=== PATIENT | female | born 1975 | race Caucasian/White ===

== ENCOUNTER 2023-10-04 13:56 | Outpatient (AMB) | payer OTHER, SELFPAY ==
--- NOTE | 2023-10-04 14:01 | A.OFFPC_ITS ---
Vital Signs 10/04/23 14:10 Height 5 ft 5 in Weight 197 lb 8 oz BMI 32.9 BP 136/76 Blood Pressure Location Lt brachial Respiration 14 Pulse 88 Pulse Source Pulse Oximeter Temp 98 F Temp Source Oral Pulse Oximetry (%) 95 Oxygen Delivery Method Room Air Intake Visit Reasons: Est care Intake Note: New patient visit School Occupational Therapist Required: No Allergies No Known Allergies Allergy (Verified 10/04/23 14:02) Medication List - Last Reconciled 10/04/23 by Jillian Rosales PA-C hydrochlorothiazide 25 mg PO DAILY Tobacco use date assessed: 10/04/23 Dental Screening Dental Screen Date: 10/04/23 Did you have a dental visit in the last 12 months?: Yes Did you have a dental problem in the last 6 months where you did not have access to dental care?: No Was dental information given to patient?: Patient has dentist HPI Est care HPI Details Patient is a 47-year-old female with a significant past medical history of breast cancer, melanoma, multinodular goiter, insomnia seasonal allergies, and hypertension presenting today for a follow up. She was last seen by myself at [facility] on 08/22/2023. Psych: Trazodone has been helpful for the insomnia prn. has not been taking this regularly. Endo: FNA benign on 07/21/23. We will need repeat ultrasound in 1 year. This was already ordered and scheduled at [facility]. - she was noted to have abnormal cervica l lymphadenopathy and due to have this ultrasound repeated next month. has to call to book. Derm: She maintains close follow up with Dr. Ybarra at [facility]. CV: Blood pressure today in the office is 136/76. She is compliant with hydrochlorothiazide 25 mg. Colonoscopy: At our last visit she was referred again for a colonoscopy. She has been referred multiple times. She states that she never heard the last time and would like to be referred to [facility]. Pap: 03/2023- utd Mammo: 05/25/23, [facility] Medical History (Updated 10/04/23 @ 14:49 by Jillian Rosales PA-C) Obesity, Class I, BMI 30-34.9 Multinodular goiter Hyperthyroidism HTN (hypertension) Melanoma Fatigue Breast cancer, right Family History (Updated 10/04/23 @ 14:09 by Marie Harrison CMA) Other FH: mental illness Substance use Social History (Updated 10/04/23 @ 14:08 by Marie Harrison CMA) Housing: House Patient Tobacco Use Status: Former Tobacco user Years Smoked: 10 e-Cigarette/Vaping Use: Never Used Second Hand Smoke Exposure: No Use of substances other than those prescribed or required for medical reasons: No service: No Current occupational status: employed 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 1. Little interest or pleasure in doing things: not at all 2. Feeling down, depressed, or hopeless: not at all 3. Trouble falling or staying asleep, or sleeping too much: not at all 4. Feeling tired or having little energy: several days 5. Poor appetite or overeating: several days 6. Feeling bad about yourself - or that you are a failure or have let yourself or your family down: not at all 7. Trouble concentrating on things, such as reading the newspaper or watching television: not at all 8. Moving or speaking so slowly that other people could have noticed. Or the opposite - being so fidgety or restless that you have been moving around a lot more than usual: not at all 9. Thoughts that you would be better off or of hurting yourself in some way: not at all Total score: 2 Depression Screening Interpretation: Negative Depression Screening Done: Yes 93684 - PHQ-9 Billing: Yes Source: Developed by Drs. Tom Busby, Ekaterina Angel, Eugene Fang and colleagues, with an educational greg from [employer]. AUDIT C Alcohol Use Questionnaire (AUDIT-C) 1. How often do you have a drink containing alcohol?: Monthly or less 2. How many drinks containing alcohol do you have on a typical day when you are drinking?: 1 or 2 3. How often do you have six or more drinks on one occasion?: Never Total Score: 1 ARTIE-7 AMB Questionnaire ARTIE-7 Feeling nervous, anxious, or on edge: 0 = Not at all Not being able to stop or control worryin = Not at all Worrying too much about different things: 0 = Not at all Trouble relaxin = Not at all Being so restless that it is hard to sit still: 0 = Not at all Becoming easily annoyed or irritable: 0 = Not at all Feeling afraid as if something awful might happen: 0 = Not at all Total ARTIE-7 score (0-4 normal; 5-9 mild; 10-14 moderate; 15-21 severe): 0 Source: Developed by Drs. Tom Busby, Ekaterina Angel, Eugene Fang and colleagues, with an educational greg from [employer]. ARTIE-7 Assessment Billing ARTIE-7 Assessment Tool: ARTIE-7 Assessment 68318 Physical exam (Primary Care) Vital Signs: Last Vital Signs Temp 98 F 10/04/23 14:10 Pulse 88 10/04/23 14:10 Resp 14 10/04/23 14:10 BP 136/76 10/04/23 14:10 Pulse Ox 95 10/04/23 14:10 Oxygen Delivery Method Room Air 10/04/23 14:10 BMI result Body Mass Index 32.9 Tobacco/Smoking Status: Tobacco use Status Tobacco use date assessed 10/04/23 10/04/23 14:16 Patient Tobacco Use Status Former Tobacco user 10/04/23 14:16 e-Cigarette/Vaping Use Never Used 10/04/23 14:16 Depression Screening Interpretation: Negative Const Orientation/consciousness: patient oriented x3 HENMT Ears: hearing grossly normal bilaterally Neck Thyroid: Thyroid normal Lymphatic: no lymphadenopathy noted Resp Auscultation: clear to auscultation bilaterally Cardio Rate: regular rate Rhythm: regular rhythm Heart sounds: S1 normal heart sound present and S2 normal heart sound present GI Inspection: Yes normal to inspection Palpation (GI): Soft to palpation and Other GI palpation findings present (nontender, no cva tenderness) Auscultation: normoactive bowel sounds Rectal Exam - Female: deferred Skin General skin exam: no rashes or lesions noted Neuro General: patient oriented x3, gait normal and no focal motor deficits Assessment and Plan Assessment & Plan (1) HTN (hypertension): Code(s): I10 - Essential (primary) hypertension Qualifiers: Hypertension type: primary hypertension Qualified Code(s): I10 - Essential (primary) hypertension Plan: We will refill medications today. (2) Hyperthyroidism: Code(s): E05.90 - Thyrotoxicosis, unspecified without thyrotoxic crisis or storm Plan: Following with endocrinology and has labs ordered and repeat thyroid ultrasound ordered. (3) Multinodular goiter: Code(s): E04.2 - Nontoxic multinodular goiter Plan: See above. Plan Referral for colonoscopy. Routine labs ordered. Follow up in 6 months for CPE or sooner if needed. Patient understands and agrees with the plan. Orders: Orders Comprehensive [place]. Panel Fast Today E04.2 - Nontoxic multinodular goiter, E05.90 - Thyrotoxicosis, unspecified without thyrotoxic crisis or storm, I10 - Essential (primary) hypertension Lipid Panel Today E04.2 - Nontoxic multinodular goiter, E05.90 - Thyrotoxicosis, unspecified without thyrotoxic crisis or storm, I10 - Essential (primary) hypertension TSH reflex Free T4 Today E04.2 - Nontoxic multinodular goiter, E05.90 - Thyrotoxicosis, unspecified without thyrotoxic crisis or storm, I10 - Essential (primary) hypertension Complete Blood Count Auto Diff Today E04.2 - Nontoxic multinodular goiter, E05.90 - Thyrotoxicosis, unspecified without thyrotoxic crisis or storm, I10 - Essential (primary) hypertension Referrals Gastroenterology Referral Z12.11 - Encounter for screening for malignant neoplasm of colon Medications: New hydrochlorothiazide 25 mg PO DAILY 90 tabs 3RF Coding Level of Care Code Est Pt Level 4 (34449) Complex EM visit Add On G2211 Diagnoses Primary hypertension I10 Hypertension type: primary hypertension Hyperthyroidism E05.90 Multinodular goiter E04.2 Additional Codes ARTIE-7 Assessment Billing - ARTIE-7 Assessment Tool: ARTIE-7 Assessment 72234 ([id number])
[2023-10-04 14:10] VITALS: BP 136/76; PULSE 88; RESP 14; TEMP 36.6; O2SAT 95; BMI 32.9
== END 2023-10-04 15:01 | disposition home or self-care (01) ==
PROVIDERS: PCP Physician Assistant; Visit Provider Physician Assistant
DX: I10 Essential (primary) hypertension (principal); E05.90 Thyrotoxicosis, unspecified without thyrotoxic crisis or storm; E04.2 Nontoxic multinodular goiter
CPT/HCPCS: 99214; G2211

== ENCOUNTER 2024-03-26 14:35 | Outpatient (REF) | payer OTHER, SELFPAY ==
[2024-03-26 17:44] LABS: MANUAL DIFF FLAG NO
[2024-03-26 18:02] LABS: Basophils Absolute Auto 0.1 X10*3/uL (0.0-0.2); Basophils Percent Auto 0.5 % (0-2); Eosinophils Absolute Auto 0.4 X10*3/uL (0.0-0.4); Eosinophils Percent Auto 3.9 % (0-4); Hematocrit 42.1 % (37.0-47.0); Hemoglobin 14.5 g/dl (12.0-16.0); Imm Gran Abs Auto 0.06 X10*3/uL (0.00-0.03); Imm Gran Pct Auto 0.6 % (0.0-0.4); Lymphocytes Percent Auto 19.4 % (20-40); Mean Corpuscular HGB Conc 34.4 g/dl (31.0-35.0); Mean Corpuscular Hemoglobin 28.7 pg (27.0-33.0); Mean Corpuscular Volume 83.4 fL (80.0-98.0); Mean Platelet Volume 9.7 fL (9.4-12.3); Monocytes Absolute Auto 0.6 X10*3/uL (0.1-1.2); Monocytes Percent Auto 6.1 % (2-11); Neutrophils Percent Auto 69.5 % (45-73); Platelet Count 315 X10*3/uL (160-400); Red Blood Count 5.05 X10*6/uL (4.20-5.50); White Blood Count 10.1 X10*3/uL (4.8-10.8)
[2024-03-26 18:15] LABS: Alanine Aminotransferase 27 U/L (0-31); Albumin Level 4.6 g/dL (3.5-5.0); Alkaline Phosphatase 112 U/L (39-117); Anion Gap 15 (12-20); Aspartate Amino Transferase 27 U/L (5-31); Bilirubin Total 0.3 mg/dL (0.0-1.0); Blood Urea Nitrogen 11 mg/dL (9-16); Calcium 10.3 mg/dL (8.4-10.2); Carbon Dioxide 30 mmol/L (22-29); Chloride 100 mmol/L (96-108); Cholesterol 246 mg/dL (<200); Estimated Glomerular Filt Rate > 60; Glucose Fasting 106 mg/dL (60-99); HDL Cholesterol 50 mg/dL (>40); LDL Cholesterol Calculated 144 mg/dL (<100); Sodium 142 mmol/L (135-145); Total Protein 7.8 g/dL (6.5-8.0); Triglycerides 260 mg/dL (<150)
[2024-03-26 18:34] LABS: TSH reflex Free T4 0.54 uIU/mL (0.32-4.0)
== END 2024-03-26 14:36 | disposition home or self-care (01) ==
LOC: HO.WFDLDS 14:35
PROVIDERS: Visit Provider Physician Assistant
DX: E05.90 Thyrotoxicosis, unspecified without thyrotoxic crisis or storm (principal); I10 Essential (primary) hypertension; E04.2 Nontoxic multinodular goiter
CPT/HCPCS: 36415; 80053; 80061; 84443; 85025

== ENCOUNTER 2024-04-08 07:58 | Outpatient (AMB) | payer OTHER, SELFPAY ==
--- NOTE | 2024-04-08 07:59 | A.OFFPC_ITS ---
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- hydrochlorothiazide 25 mg PO DAILY Tobacco use date assessed: 04/08/24 Dental Screening Dental Screen Date: 04/08/24 Did you have a dental visit in the last 12 months?: Yes Did you have a dental problem in the last 6 months where you did not have access to dental care?: No Was dental information given to patient?: Patient has dentist HPI HPI Comments History of Present Illness Details 48-year-old female with breast cancer R, melanoma, multinodular goiter, insomnia, seasonal allergies, hypertension, obesity, mild intermittent asthma, prediabetes Health Maintenance Pap: 03/2023- utd Mammo: 05/25/23, utd Colon referred 05/14/2024 Tdap UTD in the last 10 years Flu declined Specialists Endo 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 Labs from PCP reviewed w/ her today. She is taking Ca+D supplement as advised by her team who managed her Breast CA. Taking HCTZ as directed, did not make any dietary changes in related to eating K+ rich foods Labs do show hyperlipidemia. She reports that she was nonfasting during the labs sample. We will repeat the lipid profile today as she was fasting just to evaluate the triglycerides. A1c today 5.7% R breast ca - s/p lumpectomy, 05/2024 will be 5 years in remission Melanoma s/p excision in remission, monitored by Derm Optho - has never had an eye exam, no issues. Sleep - chronic insomnia. Was RXd trazodone but did not take does not like meds. Having hot flashes. Does not want any medications. Will suffer with this until ready. Does use marijuana with + effect. History of mild intermittent asthma seems to flare seasonally. Does not have an inhaler at this time and does not feel like she needs 1. Active with time recorder for allergy shots. Plan Prediabetes education provided. Advised to exercise for 30 minutes 5 days a week. Makes small achievable lifestyle and dietary modifications. Repeat labs show normalization of her potassium as well as her calcium. Improved lipid profile as well on a fasting state. Okay to continue hydrochlorothiazide at this time. . Continue care with care team We will need repeat labs before next office visit which will be in 6 months with her primary care provider RUN: 04/08/24 150 5 PAGE 1 [facility] [address] [place] [address] Phon e: [phone] Bead Stringer cheryl: Yuval Staley M.D. Specimen Inqu iry Name: Jose Guadalupe Thomas Age/Sex: 48 /F : Acct#: [id number] Unit#: [id number] Atten d Dr: Clint Pike Re04/08/24 Status: REG REF Location: [facility] Disch: SPEC : [id number] ARIC: -50 ST ATUS: COMP REQ : [id number] RECD: -[address] [facility] [address]: Jillian saenz COMP: 1 06/08/23-1244 ENTER ED: 04/08/24-[address] [facility] [address]: Karissa PikePHUA ORDE RED: BMP, Lipid P kobi Test Result Flag Refere nce Sodium 142 135-145 mmol/L Potassiu m 3.3 3.3-5.1 mmol/L C L 10 4 96-108 mmol /L CO2 28 22-29 mmol/L Gap 13 12-20 BUN 13 9-16 mg/dL Creat 0.74 0.5-1.4 mg/dL EGFR > 60 NOTE: For -Bahraini individu als, multiply the result by 1.210. Chronic Kidney Disease: E stimated GFR < 60 mL/min/1.73m2 Severe Kidney D isease: Estimated GFR < 15 mL/min/1 .73m2 Glucose, R andom 89 60 -115 mg/dL CA 9.9 8.4-10.2 mg/dL Triglyceride 179 H <150 mg/ dL Desira ble Triglyceride: less than 15 0 mg/dL Bor derline High Trigl yceride 150-199 m g/dL High T riglyceride: 200-499 mg/d L Very High Triglyceride: greater than or equal to 5OO mg/ dL Cholesterol 189 <200 mg/dL Clement irable Cholesterol : less than 200 mg/dL Borderline High Ch olesterol: 200-23 9 mg/dL Hig h Cholesterol: greater t segura 239 mg/dL LD L Calculated 111 H <100 mg/dL Desirable LDL: less than 100 mg/dL Near Optimal/Above Opt imal LDL: 110-129 mg/dL Bord silas High LDL: 130-159 mg/dL High LDL: 160-189 mg/dL Very High LDL: greater than or equal to 190 mg/dL HD L 43 >40 mg/dL Desirable HDL: greater than 40 mg/dL Note: This HDL assay ma y give artificiall y low results in patien ts with liver dise ase. END OF REPORT * * RUN: 09/26 9193 PAGE 1 [facility] [address] [address] Phone: [facility] Director: Anastasiia Staley M.D. Speci men Inquiry Name: Bhargavi Thomas Age/Sex: 48/ F : Acct#: [id number] Unit#: [id number] Attend Dr: Gabriele Pike [facility] Re04/08/24 Status: REG REF Location: [facility] Disch: SPEC : [id number] ARIC : 04/08/24 STATUS: COMP REQ : [id number] RECD : 04/08/24-[address]: Jillian MARRERO P: 04/08/24-1244 E NTERED: 04/08/24- [address]: Gabriele Pike DRAW FRAME OPERATOR-BC ORDERED: BMP, Lip id Panel Test Result Fla g Reference S odium 14 2 135-145 mmo l/L Potassium 3.3 3.3- 5.1 mmol/L CL 104 96-108 mmol/L CO2 28 22-29 mmo l/L Gap 13 12-2 0 BUN 13 9-16 mg/dL Cr eat 0.7 4 0.5-1.4 mg/d L EGFR > 60 NOTE : For -Michelle rican individuals, multiply the resu lt b y 1.210. Chronic Kidn ey Disease: Estim ated GFR < 60 mL/m in/1.73m2 S evere Kidney Disea se: Estimated GFR < 15 mL/min/1.73m 2 Glucose, Rando m 89 60-115 mg/dL CA 9.9 8 .4-10.2 mg/dL Tr iglyceride 179 H <150 mg/dL Desirable Triglyceride: less than 150 mg /dL Borderl ine High Triglycer kt 150-199 mg/dL High Trigl yceride: 200-499 mg/dL Very High Tri glyceride: g reater than or equ al to 5OO mg/dL Cholesterol 189 <200 mg/d L Desirab le Cholesterol: less than 200 mg/dL Bord silas High Choles terol: 200-239 mg /dL High Ch olesterol: greater than 239 mg/dL LDL Ca lculated 111 H <100 mg/dL Desirable LDL: less than 100 mg/ dL Near Opt imal/Above Optimal LDL: 110-129 mg/ dL Borderli ne High LDL: 130-159 mg/ dL High LDL : 160-189 mg/ dL Very Hig h LDL: greater natali n or equal to 190 mg/dL HDL 43 >40 mg/dL Desirable HDL: greater than 40 mg/dL Note: Thi s HDL assay may gi ve artificially low res ults in patients w ith liver disease. END OF REPORT [facility] Medical History (Updated 04/08/24 @ 08:37 by Karissa Pike, [facility]) Obesity, Class I, BMI 30-34.9 Multinodular goiter Hyperthyroidism HTN (hypertension) Melanoma Fatigue Breast cancer, right Family History (Updated 10/04/23 @ 14:09 by Marie Harrison CMA) Other FH: mental illness Substance use Social History (Updated 10/04/23 @ 14:08 by Marie Harrison CMA) Housing: House Patient Tobacco Use Status: Former Tobacco user Years Smoked: 10 e-Cigarette/Vaping Use: Never Used Second Hand Smoke Exposure: No service: No Current occupational status: employed 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 1. Little interest or pleasure in doing things: not at all 2. Feeling down, depressed, or hopeless: not at all 3. Trouble falling or staying asleep, or sleeping too much: not at all 4. Feeling tired or having little energy: not at all 5. Poor appetite or overeating: not at all 6. Feeling bad about yourself - or that you are a failure or have let yourself or your family down: not at all 7. Trouble concentrating on things, such as reading the newspaper or watching television: not at all 8. Moving or speaking so slowly that other people could have noticed. Or the opposite - being so fidgety or restless that you have been moving around a lot more than usual: not at all 9. Thoughts that you would be better off or of hurting yourself in some way: not at all Total score: 0 Depression Screening Interpretation: Negative Depression Screening Done: Yes 55410 - PHQ-9 Billing: Yes Source: Developed by Drs. Tom Busby, Ekaterina Angel, Eugene Fang and colleagues, with an educational greg from [employer]. Thrive Questionnaire Date Thrive assessed: 04/08/24 I am a: Patient What is your living situation today?: I have a steady place to live Within the past 12 months, did the food you bought not last and you didn't have the money to get more?: Never true Within the past 12 months, did you worry whether your food would run out before you got money to buy more?: Never true Do you have trouble paying for medicines?: No Do you have trouble getting transportation to medical appointments?: No Do you have trouble paying your heating and electricity bill?: No Do you have trouble taking care of your child, family member or friend?: No Do you have trouble with day-to-day activities such as bathing, preparing meals, shopping, managing finances, etc.?: No Are you currently unemployed and looking for a job?: No Are you interested in more education?: No Please select the resources that you would like help with: None Currently or been in a relationship where the following occur: No concerns reported THRIVE Score: 0 AUDIT C Alcohol Use Questionnaire (AUDIT-C) 1. How often do you have a drink containing alcohol?: Never 3. How often do you have six or more drinks on one occasion?: Never Total Score: 0 Score Reviewed/Action Taken: Yes ARTIE-7 AMB Questionnaire ARTIE-7 Date ARTIE - 7 assessed: 04/08/24 Feeling nervous, anxious, or on edge: 0 = Not at all Not being able to stop or control worryin = Not at all Worrying too much about different things: 0 = Not at all Trouble relaxin = Not at all Being so restless that it is hard to sit still: 0 = Not at all Becoming easily annoyed or irritable: 0 = Not at all Feeling afraid as if something awful might happen: 0 = Not at all Total ARTIE-7 score (0-4 normal; 5-9 mild; 10-14 moderate; 15-21 severe): 0 Source: Developed by Drs. Tom Busby, Ekaterina Angel, Eugene Fang and colleagues, with an educational greg from [employer]. ARTIE-7 Assessment Billing ARTIE-7 Assessment Tool: ARTIE-7 Assessment 79759 ACT Questionnaire In the past 4 weeks, how much of the time did your asthma keep you from getting as much done at work, school or at home?: None of the time During the past 4 weeks, how often have you had shortness of breath?: Not at all During the past 4 weeks, how often did your asthma symptoms wake you up at night or earlier than usual in the morning?: Not at all During the past 4 weeks, how often have you had to use your rescue inhaler or nebulizer medication?: Not at all How would you rate your asthma control during the past 4 weeks?: Completely controlled ACT Interpretation: Negative Score: 25 Review of Systems Const Details: Constitutional: Denies fever. Skin: Denies rash. Eye: Denies eye pain. ENMT: Denies sore throat and nasal congestion. Respiratory: Denies shortness of breath and cough. Gastrointestinal: Denies nausea, vomiting or abdominal pain. Cardiovascular: Denies chest pain and syncope. Genitourinary: Denies dysuria. Musculoskeletal: Denies back pain and extremity pain. Neurologic: Denies headaches, confusion, and weakness. Psychiatric: Denies suicidal thoughts and substance abuse. Allergy/ Immunologic: Denies impaired immunity. Physical exam (Primary Care) Vital Signs: Last Vital Signs Pulse 78 04/08/24 08:04 Resp 13 04/08/24 08:04 BP 118/70 04/08/24 08:04 Pulse Ox 98 04/08/24 08:04 Oxygen Delivery Method Room Air 04/08/24 08:04 BMI result Body Mass Index 32.2 BMI Assessment/Plan discussion: High BMI High, discussed plan: lifestyle Tobacco/Smoking Status: Tobacco use Status Tobacco use date assessed 04/08/24 04/08/24 08:10 Patient Tobacco Use Status Former Tobacco user 04/08/24 07:59 e-Cigarette/Vaping Use Never Used 04/08/24 07:59 PHQ-9: PHQ-9 Score PHQ-9: Total score 0 04/08/24 08:29 Depression Screening Interpretation: Negative Thrive Assessment: Date of Thrive Assessment Date Thrive assessed 04/08/24 04/08/24 08:02 Currently or been in a relationship where the following occur: No concerns reported Const Other: General: Well developed, well nourished, in no acute distress. Appears stated age. Head: Normocephalic, atraumatic. Eyes: Pupils are equal, round and reactive to light and accommodation. Conjunctivae are clear. Vision grossly normal. Ears: TMs clear AU, EACS WNL Nose: Patent, without discharge. Mouth: There are no ulcers or lesions noted. No inflammation, no post nasal drip, no plaques nor exudates. Neck: Supple, no adenopathy or thyromegaly. Lungs: Clear to auscultation bilaterally. No rales, rhonchi or wheeze noted. Good air flow in all esteban. Heart: Regular rate and rhythm. No murmurs, click, rubs or gallops are noted. Abdomen: Bowel sounds present in all quadrants. The abdomen is soft, nontender, with no masses or organomegaly noted. No hernias are noted. Musculoskeletal: Joints are nontender, without swelling, redness, or effusions. Range of motion is observed to be normal. Pulses: Peripheral pulses are equal and palpable bilaterally. Extremities: No clubbing, cyanosis nor edema is noted. Neurologic: Gait and station normal. Cranial Nerves 2-12 intact. Motor strength grossly symmetrical and intact. No sensory loss. Balance normal. Skin: No rashes, ulcers, or lesions noted. Turgor is good. Skin color is good. Hair and nails are without abnormalities. Psych: Normal eye contact, affect and mood appropriate, and normal interactions. Patient is alert and appropriate to context. Results AMB Hemoglobin A1c AMB Hemoglobin A1c 5.7 % Last Edit by Sony Lea MA on 04/08/24 08:17 Results Reviewed Results Reviewed: Laboratory Last Values Hgb A1c (Clinic) 5.7 % (4.0-6.0) 04/08/24 08:00 David Lyon, Your potassium level is a bit low. This could be related to the hydrochlorothiazide that you take. Please increase your potassium rich foods like bananas, avocados, beans, potatoes, spinach etc. your calcium came back just slightly elevated. Are you taking any vitamin supplement? If so, please stopped this and I will recheck it. I will recheck your potassium and calcium anyways in a couple of weeks once you increase your potassium rich foods. We may have to take you off the hydrochlorothiazide or add a potassium supplement if it is still low. Your blood sugar was also borderline elevated so I am going to add on an A1c to assess for diabetes/prediabetes. Laboratory Result Units Range Interpretation Provider Comments White Blood Count 10.1 X10*3/uL (4.8-10.8) Red Blood Count 5.05 X10*6/uL (4.20-5.50) Hemoglobin 14.5 g/dl (12.0-16.0) Hematocrit 42.1 % (37.0-47.0) Mean Corpuscular Volume 83.4 fL (80.0-98.0) Mean Corpuscular Hemoglobin 28.7 pg (27.0-33.0) Mean Corpuscular Hemoglobin Concent 34.4 g/dl (31.0-35.0) Red Cell Distribution Width 13.0 % (11.0-16.0) Platelet Count 315 X10*3/uL (160-400) Mean Platelet Volume 9.7 fL (9.4-12.3) Immature Granulocyte % (Auto) 0.6 % (0.0-0.4) High Neutrophils (%) (Auto) 69.5 % (45-73) Lymphocytes (%) (Auto) 19.4 % (20-40) Low Monocytes (%) (Auto) 6.1 % (2-11) Eosinophils (%) (Auto) 3.9 % (0-4) Basophils (%) (Auto) 0.5 % (0-2) Lymphocytes # (Auto) 2.0 X10*3/uL (1.2-4.9) Monocytes # (Auto) 0.6 X10*3/uL (0.1-1.2) Eosinophils # (Auto) 0.4 X10*3/uL (0.0-0.4) Basophils # (Auto) 0.1 X10*3/uL (0.0-0.2) Absolute Immature Granulocyte (auto 0.06 X10*3/uL (0.00-0.03) High Absolute Neutrophils (auto) 7.0 x10*3/uL (2.0-8.3) Nucleated RBC Absolute Count (auto) 0.000 X10*3/uL (0.0-0.012) Nucleated Red Blood Cells % (auto) 0.0 /100WBC (0.0-0.2) Sodium Level 142 mmol/L (135-145) Potassium Level 3.0 mmol/L (3.3-5.1) Low Chloride Level 100 mmol/L (96-108) Carbon Dioxide Level 30 mmol/L (22-29) High Anion Gap 15 (12-20) Blood Urea Nitrogen 11 mg/dL (9-16) Creatinine 0.88 mg/dL (0.5-1.4) Estimated Creatinine Clearance Calc Not Reportable Estimat Glomerular Filtration Rate > 60 Fasting Glucose 106 mg/dL (60-99) High Calcium Level 10.3 mg/dL (8.4-10.2) High Total Bilirubin 0.3 mg/dL (0.0-1.0) Aspartate Amino Transf (AST/SGOT) 27 U/L (5-31) Alanine Aminotransferase (ALT/SGPT) 27 U/L (0-31) Alkaline Phosphatase 112 U/L (39-117) Total Protein 7.8 g/dL (6.5-8.0) Albumin 4.6 g/dL (3.5-5.0) Triglycerides Level 260 mg/dL (<150) High Cholesterol Level 246 mg/dL (<200) High LDL Cholesterol, Calculated 144 mg/dL (<100) High HDL Cholesterol 50 mg/dL (>40) Thyroid Stimulating Hormone (TSH) 0.54 uIU/mL (0.32-4.0) New Orders Parathyroid Hormone Intact Laboratory 04/01/24 Basic Metabolic Panel Laboratory 04/01/24 Hemoglobin A1c Laboratory 04/01/24 Vitamin D 1,25 dihydroxy Laboratory 04/01/24 Coding Level of Care Code Est Pt Prev Care 40-64y(87953) Diagnoses Encounter for general adult medical examination without abnormal findings Z00.00 Mixed hyperlipidemia E78.2 Hyperlipidemia type: mixed hyperlipidemia Prediabetes R73.03 Malignant neoplasm of right female breast, unspecified estrogen receptor status, unspecified site of breast C50.911 Breast location: unspecified site of breast Estrogen receptor status: unspecified Patient sex: female Malignant melanoma, unspecified site C43.9 Melanoma location: unspecified site BMI 32.0-32.9,adult Z68.32 Obesity, Class I, BMI 30-34.9 E66.9 Mild intermittent asthma without complication J45.20 Asthma complication type: uncomplicated Primary hypertension I10 Hypertension type: primary hypertension Hyperthyroidism E05.90 Additional Codes Asthma Control Questionnaire - ACT Interpretation: Negative ([id number]) ARTIE-7 Assessment Billing - ARTIE-7 Assessment Tool: ARTIE-7 Assessment 10136 ([id number]) Assessment & Plan Assessment & Plan (1) Encounter for general adult medical examination without abnormal findings: Code(s): Z00.00 - Encounter for general adult medical examination without abnormal findings Plan: . (2) Hyperlipidemia: Code(s): E78.5 - Hyperlipidemia, unspecified Category: Medical Qualifiers: Hyperlipidemia type: mixed hyperlipidemia Qualified Code(s): E78.2 - Mixed hyperlipidemia Plan: . (3) Prediabetes: Code(s): R73.03 - Prediabetes Category: Medical Plan: . (4) Breast cancer, right: Code(s): C50.911 - Malignant neoplasm of unspecified site of right female breast Category: Medical Qualifiers: Breast location: unspecified site of breast Estrogen receptor status: unspecified Patient sex: female Qualified Code(s): C50.911 - Malignant neoplasm of unspecified site of right female breast Plan: . (5) Melanoma: Code(s): C43.9 - Malignant melanoma of skin, unspecified Category: Medical Qualifiers: Melanoma location: unspecified site Qualified Code(s): C43.9 - Ma lignant melanoma of skin, unspecified Plan: . (6) BMI 32.0-32.9,adult: Code(s): Z68.32 - Body mass index [BMI] 32.0-32.9, adult Category: Medical Plan: .. (7) Obesity, Class I, BMI 30-34.9: Code(s): E66.9 - Obesity, unspecified Category: Medical Plan: .. (8) Mild intermittent asthma: Code(s): J45.20 - Mild intermittent asthma, uncomplicated Category: Medical Qualifiers: Asthma complication type: uncomplicated Qualified Code(s): J45.20 - Mild intermittent asthma, uncomplicated Plan: . (9) HTN (hypertension): Code(s): I10 - Essential (primary) hypertension Category: Medical Qualifiers: Hypertension type: primary hypertension Qualified Code(s): I10 - Essential (primary) hypertension Plan: . (10) Hyperthyroidism: Code(s): E05.90 - Thyrotoxicosis, unspecified without thyrotoxic crisis or storm Category: Medical Plan: . Plan . Orders: Orders Lipid Panel Today E78.5 - Hyperlipidemia, unspecified Comprehensive [place]. Panel Fast 09/03/24 E05.90 - Thyrotoxicosis, unspecified without thyrotoxic crisis or storm, E78.2 - Mixed hyperlipidemia, I10 - Essential (primary) hypertension, R73.03 - Prediabetes Lipid Panel 09/03/24 E0.90 - Thyrotoxicosis, unspecified without thyrotoxic crisis or storm, E78.2 - Mixed hyperlipidemia, I10 - Essential (primary) hypertension, R73.03 - Prediabetes Microalbumin, Random (w Creat) 09/03/24 E0.90 - Thyrotoxicosis, unspecified without thyrotoxic crisis or storm, E78.2 - Mixed hyperlipidemia, I10 - Essential (primary) hypertension, R73.03 - Prediabetes TSH reflex Free T4 09/03/24.90 - Thyrotoxicosis, unspecified without thyrotoxic crisis or storm, E78.2 - Mixed hyperlipidemia, I10 - Essential (primary) hypertension, R73.03 - Prediabetes Vitamin D 25-OH Total 09/03/24. - Thyrotoxicosis, unspecified without thyrotoxic crisis or storm, E78.2 - Mixed hyperlipidemia, I10 - Essential (primary) hypertension, R73.03 - Prediabetes AMB Hemoglobin A1c Today Z13.9 - Encounter for screening, unspecified Hemoglobin A1c 09/03/24.90 - Thyrotoxicosis, unspecified without thyrotoxic crisis or storm, E78.2 - Mixed hyperlipidemia, I10 - Essential (primary) hypertension, R73.03 - Prediabetes Patient Instructions: Health screenings for women You should visit your health care provider from time to time, even if you are healthy. The purpose of these visits is to: Screen for medical issues Assess your risk for future medical problems Encourage a healthy lifestyle Update vaccinations and other preventive care services Help you get to know your provider in case of an illness Information Even if you feel fine, you should still see your provider for regular checkups. These visits can help you avoid problems in the future. For example, the only way to find out if you have high blood pressure is to have it checked regularly. High blood sugar and high cholesterol levels also may not have any symptoms in the early stages. A simple blood test can check for these conditions. There are specific times when you should see your provider or receive specific health screenings. The [place] Preventive Services Task Force publishes a list of recommended screenings. Below are screening guidelines for women ages 18 to 39. BLOOD PRESSURE SCREENING Your blood pressure should be checked at least once every 3 to 5 years if: Your blood pressure is in the normal range (top number less than 120 mm Hg and bottom number less than 80 mm Hg) You don't have risk factors for high blood pressure Ask your provider if you need your blood pressure checked more often if: The top number is 120 to 129 mm Hg or the bottom number is 70 to 79 mm Hg You have diabetes, heart disease, kidney problems, are overweight, or have certain other health conditions You have a first-degree relative with high blood pressure You are Black You had high blood pressure during a If the top number is 130 mm Hg or greater or the bottom number is 80 mm Hg or greater, this is considered stage 1 hypertension. Schedule an appointment with your provider to learn how you can reduce your blood pressure. Watch for blood pressure screenings in your area. Ask your provider if you can stop in to have your blood pressure checked. BREAST CANCER SCREENING Experts do not agree about the benefits of breast self-exams in finding breast cancer or saving lives. Talk to your provider about what is best for you. A screening mammogram is not recommended for most women under age 40. Your provider may discuss and recommend mammograms, MRI scans, or ultrasounds if you have an increased risk for breast cancer, such as: A mother or sister who had breast cancer at a young age (most often starting screening earlier than the age the close relative was diagnosed) You carry a high-risk genetic marker CERVICAL CANCER SCREENING Cervical cancer screening should start at age 21 years unless your provider advises otherwise. After the first test: Women ages 21 through 29 should have a Pap test every 3 years. Exoprts do not agree on whether HPV testing is recommended for this age group. Women ages 30 through 65 should be screened with either a Pap test every 3 years or the HPV test every 5 years or both tests every 5 years (called cotesting ). Women who have been treated for precancer (cervical dysplasia) should continue to have Pap tests for 20 years after treatment or until age 65, whichever is longer. If you have had your uterus and cervix removed (total hysterectomy), and you have not been diagnosed with cervical cancer or precancer (high grade cervical neoplasia), you do not need cervical cancer screening. CHOLESTEROL SCREENING Cholesterol screening should begin at: Age 45 for women with no known risk factors for coronary heart disease Age 20 for women with known risk factors for coronary heart disease Repeat cholesterol screening should take place: Every 5 years for women with normal cholesterol levels More often if changes occur in lifestyle (including weight gain and diet) More often if you have diabetes, heart disease, kidney problems, or certain other conditions DIABETES SCREENING You should be screened for diabetes starting at age 35 and then repeated every 3 years if you have no risk factors for diabetes. Screening may need to start earlier and be repeated more often if you have other risk factors for diabetes, such as: You have a first degree relative with diabetes. You are overweight or have obesity. You have high blood pressure, prediabetes, or a history of heart disease. Screening for diabetes should be done if you are planning to become and you are overweight and have other risk factors such as high blood pressure. DENTAL EXAM Go to the dentist once or twice every year for an exam and cleaning. Your dentist will evaluate if you need more frequent visits. EYE EXAM Have an eye exam every 5 to 10 years before age 40. If you have vision problems, have an eye exam every 2 years or more often if recommended by your provider. You should have an eye exam that includes an examination of your retina (back of your eye) at least every year if you have diabetes. IMMUNIZATIONS Commonly needed vaccines include: Flu shot: get one every year. COVID-19 vaccine: ask your provider what is best for you. Tetanus-diphtheria and acellular pertussis (Tdap) vaccine: have one at or after age 19 as one of your tetanus-diphtheria vaccines if you did not receive it as an adolescent. Tetanus-diphtheria: have a booster (or Tdap) every 10 years. Varicella vaccine: receive 2 doses if you never had chickenpox or the varicella vaccine. Hepatitis B vaccine: receive 2, 3, or 4 doses, depending on your exact circumstances. Measles, mumps, and rubella (MMR) vaccine: receive 1 to 2 doses if you are not already immune to MMR. Your provider can tell you if you are immune. Ask your provider about the human papillomavirus (HPV) vaccine if: You have not received the HPV vaccine in the past You have not completed the full vaccine series (you should catch up on this shot) Ask your provider if you should receive other immunizations if you have certain health problems that increase your risk for some diseases such as pneumonia. INFECTIOUS DISEASE SCREENING Women who are sexually active should be screened for chlamydia and gonorrhea up until age 25. Women 25 years and older should be screened for chlamydia and gonorrhea if at high risk. Screening for hepatitis C: All adults ages 18 to 79 should get a one-time test for hepatitis C. people should be screened at every . Screening for human immunodeficiency virus (HIV): All people ages 15 to 65 should get a one-time test for HIV. Depending on your lifestyle and medical history, you may also need to be screened for infections such as syphilis and HIV, as well as other infections. PHYSICAL EXAM All adults should visit their provider from time to time, even if they are healthy. The purpose of these visits is to: Screen for disease Assess your risk of future medical problems Encourage a healthy lifestyle Update your vaccinations and other preventive care services Maintain a relationship with a provider in case of an illness Your height, weight, and BMI should be checked at every exam. During your exam, your provider may ask you about: Depression and anxiety Diet and exercise Alcohol and tobacco use Safety issues, such as using seat belts, smoke detectors, and intimate partner violence Your medicines and risk for interactions SKIN SELF-EXAM Your provider may check your skin for signs of skin cancer, especially if you're at high risk, such as if you: Have had skin cancer before Have close relatives with skin cancer Have a weakened immune system OTHER SCREENING Talk with your provider about colon cancer screening if you have a strong family history of colon cancer or polyps, or if you have had inflammatory bowel disease or polyps yourself. Routine bone density screening of women under 40 is not recommended.
[2024-04-08 08:04] VITALS: BP 118/70; PULSE 78; RESP 13; O2SAT 98; BMI 32.2
== END 2024-04-08 08:34 | disposition home or self-care (01) ==
LOC: HO.HMCFM 07:59
PROVIDERS: PCP Physician Assistant; Visit Provider Nurse Practitioner Family
DX: Z00.00 Encounter for general adult medical examination without abnormal findings (principal); E78.2 Mixed hyperlipidemia; C50.911 Malignant neoplasm of unspecified site of right female breast; C43.9 Malignant melanoma of skin, unspecified; R73.03 Prediabetes; Z68.32 Body mass index [BMI] 32.0-32.9, adult; E66.9 Obesity, unspecified; J45.20 Mild intermittent asthma, uncomplicated; I10 Essential (primary) hypertension; E05.90 Thyrotoxicosis, unspecified without thyrotoxic crisis or storm

== ENCOUNTER → 2024-04-08 07:58 | Outpatient (BNVA) | payer OTHER, SELFPAY | PROVIDERS: PCP Physician Assistant; Visit Provider Nurse Practitioner Family | DX: Z00.00 Encounter for general adult medical examination without abnormal findings (principal); E78.2 Mixed hyperlipidemia; R73.03 Prediabetes; C50.911 Malignant neoplasm of unspecified site of right female breast; C43.9 Malignant melanoma of skin, unspecified; E66.9 Obesity, unspecified; Z68.32 Body mass index [BMI] 32.0-32.9, adult; J45.20 Mild intermittent asthma, uncomplicated; I10 Essential (primary) hypertension; E05.90 Thyrotoxicosis, unspecified without thyrotoxic crisis or storm | CPT/HCPCS: 83036; 96127; 96160 ==

== ENCOUNTER 2024-04-08 08:49 | Outpatient (REF) | payer OTHER, SELFPAY ==
[2024-04-08 12:44] LABS: Anion Gap 13 (12-20); Blood Urea Nitrogen 13 mg/dL (9-16); Calcium 9.9 mg/dL (8.4-10.2); Carbon Dioxide 28 mmol/L (22-29); Chloride 104 mmol/L (96-108); Cholesterol 189 mg/dL (<200); Estimated Glomerular Filt Rate > 60; Glucose Random 89 mg/dL (60-115); HDL Cholesterol 43 mg/dL (>40); LDL Cholesterol Calculated 111 mg/dL (<100); Potassium 3.3 mmol/L (3.3-5.1); Sodium 142 mmol/L (135-145); Triglycerides 179 mg/dL (<150)
[2024-04-08 12:48] LABS: Parathyroid Hormone Intact 67.4 pg/mL (8.7-77.1)
[2024-04-13 10:59] LABS: VITAMIN D (1,25 OH) D3 48 pg/mL; Vit D (1,25-Dihydroxy) Total 48 pg/mL (18-72); Vitamin D (1,25 OH) D2 <8 pg/mL
== END 2024-04-08 08:50 | disposition home or self-care (01) ==
LOC: HO.WFDLDS 08:49
PROVIDERS: Referring Provider Physician Assistant; Visit Provider Nurse Practitioner Family
DX: R73.9 Hyperglycemia, unspecified (principal); E87.6 Hypokalemia; E78.5 Hyperlipidemia, unspecified; E83.52 Hypercalcemia
CPT/HCPCS: 36415; 80048; 80061; 82652; 83970

== ENCOUNTER 2024-10-01 07:31 | Outpatient (REF) | payer OTHER, SELFPAY ==
--- OUTSIDE RECORDS SUMMARY | 2024-10-01 07:34 | XMS_ITS | Clinical Summary ---
Author Organization [facility] Address [address] [place] [address] Phone Care Team Providers Care Him Specialists Name Role Phone Vickie Sutton MD Primary Care Provider [phone] Allergies No known active allergies Medications albuterol HFA (PROAIR HFA ; PROVENTIL HFA ; VENTOLIN HFA) 90 mcg/actuation inhaler Inhale 2 puffs by mouth every 6 hours as needed for wheezing. 05/20/2019 Active hydroCHLOROthiaz kt 12.5 mg tablet Take 1 tablet (12.5 mg total) by mouth 1 (one) time each day. 03/22/2023 Active goserelin (Zoladex) 3.6 mg implant Inject 3.6 mg under the skin 1 (one) time. Active calcium carbonate-vitami n D 500 mg-5 mcg (200 unit) per tablet Take 1 tablet by mouth 1 (one) time each day. Active Active Problems Problem Noted Date Diagnosed Date Malignant neoplasm of right female breast, unspecified estrogen receptor status, unspecified site of breast (CMS/HCC V24, CMS/HCC V28) 04/25/2024 Malignant neoplasm of female breast (CMS/HCC V24, CMS/HCC V28) 04/15/2021 Encounters Date Type Department Care Team Description 09/12/2024 1:30 PM EDT - 09/12/2024 11:59 PM EDT Hospital Encounter [facility] [address] [phone] Jena Gonzales DO Malignant neoplasm of female breast, unspecified estrogen receptor status, unspecified laterality, unspecified site of breast (CMS/HCC V24, CMS/HCC V28) (Primary Dx); Malignant neoplasm of right female breast, unspecified estrogen receptor status, unspecified site of breast (CMS/HCC V24, CMS/HCC V28) Discharge Disposition: Home or Self Care 08/15/2024 1:30 PM EDT - 08/15/2024 11:59 PM EDT Hospital Encounter [facility] [address] [place] [phone] Jena Gonzales, Malignant neoplasm of right female breast, unspecified estrogen receptor status, unspecified site of breast (CMS/HCC V24, CMS/HCC V28) (Primary Dx); Malignant neoplasm of female breast, unspecified estrogen receptor status, unspecified laterality, unspecified site of breast (CMS/HCC V24, CMS/HCC V28) Discharge Disposition: Home or Self Care 07/18/2024 1:14 PM EST - 07/18/2024 11:59 PM EST Hospital Encounter [facility] [address] [place] [phone] Jena Gonzales, Malignant neoplasm of right female breast, unspecified estrogen receptor status, unspecified site of breast (CMS/HCC V24, [facility]/HCC V28) (Primary Dx); Malignant neoplasm of female breast, unspecified estrogen receptor status, unspecified laterality, unspecified site of breast (CMS/HCC V24, CMS/HCC V28) Discharge Disposition: Home or Self Care from Last 3 Months Immunizations Name Administration Dates Next Due Pfizer SARS-CoV-2 COVID-19, mRNA, LNP-S, preservative free 04/20/2021,03/30/2021 Social History Tobacco Use Types Packs/Day Years Used Date Smoking Tobacco: Never Assessed Comments Unknown Sex and Gender Information Value Date Recorded Sex Assigned at Female 06/20/2024 1:11 PM EST Legal Sex Female 6:23 AM EST Gender Identity Female 06/20/2024 1:11 PM EST Sexual Orientation Choose not to disclose 2024 1:30 PM EDT Sexual Orientation Straight 09/12/2024 1: 30 PM EDT Obstetrics History Last Filed Vital Signs Vital Sign Reading Time Taken Comments Blood Pressure 135/80 09/12/2024 1:40 PM EDT Pulse 111 09/12/2024 1:40 PM EDT Temperature 36.6 ??C (97.8 ??F) 09/12/2024 1:40 PM ED T Respiratory Rate 18 09/12/2024 1:40 PM EDT Oxygen Saturation 100% 09/12/2024 1:40 PM EDT Inhaled Oxygen Concentration - - Weight 86.6 kg (191 lb) 06/20/2024 2:27 PM EST Height 165.1 cm (5' 5 ) 06/20/2024 2:27 PM EST Body Mass Index 31.78 06/20/2024 2:27 PM EST Plan of Treatment Upcoming Encounters Date Type Department Care Team (Late st Contact Info) Description 10/10/2024 1:30 PM EDT Appointment [facility] [address] [facility] 2nd [place] [address] 10/15/2024 3:00 PM EDT Appointment [facility] [address] [place] [phone] Emigdio De La Garza, DO [address] [facility] [address] [place] [address] 12/19/2024 9:00 AM EDT Office Visit [facility] Hematology Oncology [address] [place] [address] Jena Gonzales DO [address] [place] [address] Health Maintenance Due Date Last Done Comments Breast Cancer Screening 1975 Hepatitis B Vaccines (1 of 3 - 19+ 3-dose series) 12/22/1995 Pneumococcal Vaccine: Pediatrics (0 to 5 Years) and At-Risk Patients (6 to 64 Years) (1 of 2 - PCV) 12/22/1995 Cervical Cancer Screening: P ap Smear 1997 COVID-19 Vaccine (3 - Pfizer risk series) 05/18/2021 04/20/2021, 03/30/2021 Cholesterol Screening (Lipid Panel) 05/12/2022 Colorectal Cancer Screening: Colonoscopy 05/12/2022 Depression Screening 05/12/2022 HIV Screening 05/12/2022 Hepatitis C Screening 05/12/2022 Social Influencers of Health Screening 05/12/2022 DTaP,Tdap,and Td Vaccines (2 - Td or Tdap) 2023 12/20/2013 Hypertension/CHF/CAD Annual BMP Blood Test 04/25/2024 Influenza Vaccine (Season Ended) 2025 Osteoporosis Screening (Bone Density Screening) 01/01/2039 01/02/2024, 01/06/2023, 12/27/2021 HIB Vaccines Aged Out No longer eligi ble based on patient's age to complete this topic HPV Vaccines Aged Out No longer eligi ble based on patient's age to complete this topic Hepatitis A Vaccines Aged Out No long er eligible based on patient's age to complete this topic IPV Vaccines Aged Out No longer eligi ble based on patient's age to complete this topic MMR Vaccines Aged Out No longer eligi ble based on patient's age to complete this topic Meningococcal ACWY Vaccine Aged Out N o longer eligible based on patient's age to complete this topic Meningococcal B Vaccine Aged Out No l onger eligible based on patient's age to complete this topic RSV Immunization Patients Under 20 months Aged Out No longer eligible b ased on patient's age to complete this topic Varicella Vaccines Aged Out No longer eligible based on patient's age to complete this topic Procedures Procedure Name Priority Date/Time Associated Diagnosis Comments [facility] DEXA AXIAL SKELETON Routine 01/02/2024 7:39 AM EDT Other specified disorders of bone density and structure, other site from Last 3 Months or Most Recently Relevant to Health Maintenance Results * [facility] DEXA AXIAL SKELETON (01/02/2024 7:39 AM EDT) Anatomical Region Laterality Modality Mammography 01/01/2024 1:24 PM EDT Narrative 01/02/2024 7:39 AM EDT [facility] Diagnostic Imaging Department [address] [place] [id number] Patient: ??CHANELL THOMAS ?/Age/Sex: 1975 - 48 - F Unit#: ??[id number] ? Location/Status: ??SPDIMAM/REG CLI ? Mnemonic/Ordering Site: ??MAMDEXAAX/SPMAM Ordering Physician: ??JENA GONZALES Cassandra Dexa Axial Skeleton - 01/01/24 - 1342 Report Status:Signed HISTORY: ??The patient is a 48-year-old postmenopausal female with clinical concern for metabolic bone disease. FINDINGS: ??Dual energy x-ray absorptiometry of the lumbar spine and femurs is performed. The mean bone mineral density at L1-L4 is 0.975 gm/cm2 which is 83% of that of young normals and 78% of that of age matched controls. This yields a T-score of -1.7 and a Z-score of -2.3 which is diagnostic of osteopenia. The mean bone mineral density of the femurs bilaterally is 0.948 gm/cm2 which is 94% of that of young normals and 92% of that of age matched controls. ??This yields a T-score of -0.5 and a Z-score of -0.6 and there is therefore no evidence of osteoporosis or osteopenia here. ??However, the T-score of the right femoral neck is -1.3 and that of the left femoral neck is -1.2 which is diagnostic of osteopenia. IMPRESSION: 1. Osteopenia. ??There has been a decrease of 0.2% in bone mineral density in the lumbar spine since the prior examination of 01/05/2023. ??There has been a decrease of 0.4% in bone mineral density in the right femur and a decrease of 2.8% in bone mineral density in the left femur. 2. FRAX analysis yields a 10-year probability of major osteoporotic fracture of 6.4% and a 10-year probability of hip fracture of 0.5%. Code 90501 Dictating Physician: ??CAMILLA WEBB MD Electronically Signed by: ??CAMILLA WEBB MD Dic Date/Time: ??01/02/2438 Sign date/Time: ??01/02/24 0739 Procedure Note Camilla Webb MD - 03/20/2024 [facility] Diagnostic Imaging Department [address] [place] [address] Patient: NEWTONCHANELL./Age/Sex: 1975 - 48 - F Unit#: [id number] Location/Status: [facility]em[facility] Ordering Physician: JENA GONZALES Cassandra Dexa Axial Skeleton - 01/01/24 - 1342 Report Status:Signed HISTORY: The patient is a 48-year-old postmenopausal female withclinical concern for metabolic bone disease. FINDINGS: Dual energy x-ray absorptiometry of the lumbar spine and femursis performed. The mean bone mineral density at L1-L4 is 0.975 gm/cm2 which is83% of that of young normals and 78% of that of age matched controls. Thisyields a T-score of -1.7 and a Z-score of -2.3 which is diagnostic of osteopenia. The mean bone mineral density of the femurs bilaterally is 0.948 gm/sf8pqczj is 94% of that of young normals and 92% of that of age matched controls.This yields a T-score of -0.5 and a Z-score of -0.6 and there is therefore no evidence of osteoporosis or osteopenia here. However, the T-score of theright femoral neck is -1.3 and that of the left femoral neck is -1.2 which is diagnostic of osteopenia. IMPRESSION: 1. Osteopenia. There has been a decrease of 0.2% in bone mineral densityin the lumbar spine since the prior examination of 01/05/2023. There has eloy decrease of 0.4% in bone mineral density in the right femur and a decreaseof 2.8% in bone mineral density in the left femur. 2. FRAX analysis yields a 10-year probability of major osteoporoticfracture of 6.4% and a 10-year probability of hip fracture of 0.5%. Code 99359 Dictating Physician: CAMILLA WEBB MD Electronically Signed by: CAMILLA WEBB MD Dic Date/Time: 01/02/24 0738 Sign date/Time: 01/02/24 0739 Jena Gonzales DO IMG BI PROCEDURES Fin al Result from Last 3 Months or Most Recently Relevant to Health Maintenance Insurance [facility] Care Teams Him Specialists Relationship Specialty Start Date End Date Vickie Sutton MD [address] [place] [id number] PCP - General Endocrinology 07/18/24
--- OUTSIDE RECORDS SUMMARY | 2024-10-01 07:34 | XMS_ITS | Encounter Summary ---
Author Organization [facility] Address [address] [place] [address] Care Team Providers Care Associate Financial Representative Name Role Phone Jillian Rosales Primary Care Provider [phone] Encounter Details Date Type Department Care Team (Late st Contact Info) Description 12/30/2021 3:25 PM EDT [...] Orientation Straight 09/12/2024 1: 30 PM EDT documented as of this encounter [...] Info) Description 10/10/2024 1:30 PM EDT Appointment [facility] [address] [phone] 10/15/2024 3:00 PM EDT Appointment [facility] Endoscopy [address] [place] [address] Emigdio De La Garza DO 175 [facility] 200 [place] [address] 12/19/2024 9:00 AM EDT Office Visit [facility] Hematology Oncology [address] [place] [phone] Marlena Mayberry DO [address] [place] [address] documented as of this encounter Visit Diagnoses Not on filedocumented in this encounter Care Teams Associate Financial Representative Relationship Specialty Start Date End Date Jillian Rosales PA PCP - General Physician Truck Spotter 09/30/21 09/07/23 documented as of this encounter
--- OUTSIDE RECORDS SUMMARY | 2024-10-01 07:34 | XMS_ITS | Encounter Summary ---
Author Organization [facility] Address [address] [place] [address] Care Team Providers Care General Administrator Name Role Phone Vickie Sutton MD Primary Care Provider [phone] Encounter Details Date Type Department Care Team [...] Info) Description 10/10/2024 1:[address] [facility] [address] [facility] 2nd [place] [address] 10/15/2024 3:[address] [facility] Endoscopy [address] [place] [address] Emigdio De La Garza DO [address] [address] 12/19/2024 9:00 AM EDT Office Visit [facility] Hematology Oncology [address] [place] [phone] Marlena Mayberry DO [address] [place] [address] documented as of this encounter Visit Diagnoses Not on filedocumented in this encounter Care Teams General Administrator Relationship Specialty Start Date End Date Vickie Sutton MD PCP - General 09/08/23 07/17/24 documented as of this encounter
--- OUTSIDE RECORDS SUMMARY | 2024-10-01 07:34 | XMS_ITS ---
Author Organization [facility] Address [address] [place] [address] Care Team Providers Care Paring Machine Operator Name Role Phone Vickie Sutton MD Primary Care Provider [phone] Active Problems Problem Noted Date Diagnosed Date Malignant neoplasm of upper- outer quadrant of right breast in female, estrogen receptor positive 10/29/[address] [facility] GOSERELIN 3.6MG (ZOLADEX)* Plan Start Date:09/14/2023 Plan Provider:Marlena Mayberry DO Linked Problems Malignant neoplasm of upper- outer quadrant of right breast in female, estrogen receptor positive (HCC) Treatment Medications goserelin (ZOLADEX) Past Plans ONCOLOGY INFUSION THERAPY Plan Name Start Date Discontinue Date Treatment Medications Discontinue Reason Plan Provider [facility] GOSERELIN 3.6MG (ZOLADEX) 10/06/2022 09/14/2023 goserelin (ZOLADEX) Entered in error Marlena Mayberry DO [facility] GOSERELIN 3.6MG (ZOLADEX) 11/04/2021 10/06/2022 goserelin (ZOLADEX) Entered in error Antonino Das MD Radiation Treatments * No radiation treatments are documented for this patient in [facility]. Treatments may have been administered in another system.
--- OUTSIDE RECORDS SUMMARY | 2024-10-01 07:34 | XMS_ITS ---
Author Organization [facility] Address [address] [place] [phone] Phone Care Team Providers Care Linen Manager Name Role Phone Vickie Sutton MD Primary Care Provider [phone] Active Problems Problem Noted Date Diagnosed Date Malignant neoplasm of right female breast, unspecified estrogen receptor status, unspecified site of breast ([facility] V24, [facility] V28) 04/25/2024 Malignant neoplasm of female breast ([facility] V24, [facility] V28) 04/15/2021 Current Oncology Plans GOSERELIN (ZOLADEX) 3.6 MG EVERY 4 WEEKS* Plan Start Date:04/25/2024 Plan Provider:Marlena Mayberry, Linked Problems Malignant neoplasm of female breast, unspecified estrogen receptor status, unspecified laterality, unspecified site of breast (CMS/HCC V24, [facility] V28)Malignant neoplasm of right female breast, unspecified estrogen receptor status, unspecified site of breast ([facility] V24, [facility] V28) Treatment Medications goserelin (ZOLADEX) Past Plans No past plan information found. Radiation Treatments * No radiation treatments are documented for this patient in [facility]. Treatments may have been administered in another system.
--- OUTSIDE RECORDS SUMMARY | 2024-10-01 07:34 | XMS_ITS | Clinical Summary ---
Author Organization [facility] Address [address] [place] [address] Care Team Providers Care Boom Boss Name Role Phone Vickie Sutton MD Primary Care Provider [phone] Allergies No known active allergies Medications Medication Sig Dispensed Refills Start Date End Date Status hydroCHLOROthiazide (HYDRODIURIL) tablet 12.5 mg Take 1 tablet (12.5 mg total) by mouth daily. 0 03/22/2023 Active albuterol 108 (90 Base) MCG/ACT inhaler Inhale 2 puffs into the lungs every 6 (six) hours as needed for wheezing or shortness of breath. 0 05/20/2019 Active Active Problems Problem Noted Date Diagnosed Date Malignant neoplasm of upper- outer quadrant of right breast in female, estrogen receptor positive 10/29/2019 Social History Tobacco Use Types Packs/Day Years Used Date Smoking Tobacco: Never Assessed Sex and Gender Information Value Date Recorded Sex Assigned at Female 11/25/2022 9:24 AM EDT Gender Identity Female 12/01/2022 1:40 PM EDT Sexual Orientation Straight 12/01/2022 1: 40 PM EDT Job Start Date Occupation Industry Not on file Not on file Not on file Last Filed Vital Signs Vital Sign Reading Time Taken Comments Blood Pressure 127/72 03/28/2024 1:31 PM EDT Pulse 90 03/28/2024 1:31 PM EDT Temperature 36.3 ??C (97.4 ??F) 03/28/2024 1:31 PM ED T Respiratory Rate 18 02/29/2024 1:40 PM EDT Oxygen Saturation 100% 03/28/2024 1:31 PM EDT Inhaled Oxygen Concentration - - Weight 86.6 kg (191 lb) 11/21/2023 1:48 PM EDT Height 165.1 cm (5' 5 ) 11/21/2023 1:48 PM EDT Body Mass Index 31.78 11/21/2023 1:48 PM EDT Plan of Treatment Health Maintenance Due Date Last Done Comments Hepatitis B Vaccines (1 of 3 - 3-dose series) 1975 Hepatitis C Screening 1975 Pneumococcal Vaccine (1 of 2 - PCV) 1982 Depression Screening 1988 BMI Counseling 1994 Preventative Health Evaluation 1994 Cervical Cancer Screening (Pap Smear) 1997 COVID-19 Vaccine (3 - Pfizer risk series) 05/18/2021 04/20/2021, 03/30/2021 Colon Cancer Screening (Colonoscopy) 2021 DTap / Tdap / Td (2 - Td or Tdap) 2023 12/20/2013 Influenza Vaccine (#1) 2024 RSV Ped < 20 months Aged Out No longe r eligible based on patient's age to complete this topic Care Teams Boom Boss Relationship Specialty Start Date End Date Vickie Sutton MD PCP - General Internal Medicine 09/08/23
--- OUTSIDE RECORDS SUMMARY | 2024-10-01 07:34 | XMS_ITS | Continuity of Care Document ---
Author Organization [facility] [address] [place] [address] Phone [phone] Care Team Providers Care Aircraft Engine Assembler Name Role Phone Kenzi. PETTY Rosales Care Team Information Electric Motor Repairing Supervisor [phone] Problems Active Problems Provider Date Carcinoma of breast Anil Mathias M.D. Onset: 07/26/2022 Seasonal allergy Anil Mathias M.D. Onset: Obese class I Anil Mathias M.D. Onset: H/O Malignant melanoma Anil Mathias M.D. Ons et: 07/26/2022 Personal history of primary malignant neoplasm of breast Anil Mathias M.D. Onset: 07/26/2022 Multinodular goiter Anil Mathias M.D. Onset: 07/26/2022 Social History Type Date Description Comments Sex Unknown Tobacco Use Start: Unknown Never Smoked Cigarettes ETOH Use Occasionally consumes alcoho l Allergies and adverse reactions Description No Known Drug Allergies Vital Signs Date Vital Result Comment 07/26/2022 8:34am BP Systolic 120 mmHg BP Diastolic 74 mmHg Height 66.5 inches 5'6.50 Weight 193.00 lb BMI (Body Mass Index) 30.7 kg/m2 Medical Devices Description No Information Available Encounters Type Date Location Provider Dx Diagnosis Office Visit 07/26/2022 9:00a Main Office Anil Mathias M.D. E04.2 Nontoxic multinodular goiter Z85.3 Personal history of malignant neoplasm of breast Z85.89 Personal history of malignant neoplasm of organs and systems Assessments Date Code Description Provider 07/26/2022 E04.2 Multinodular goiter Anil macias M.D. 07/26/2022 Z85.3 Personal history of primary malignant neoplasm of breast Anil Mathias M.D. 07/26/2022 Z85.89 H/O Malignant melanoma Anil Mathias M.D. Plan of Treatment No Information Available Functional Status Description No Information Available Mental Status Description No Information Available Referrals Description No Information Available
[2024-10-01 11:41] LABS: Estimated Average Glucose 111 mg/dL; Hemoglobin A1C 133.0918 umol/L; Hemoglobin A1c % 5.5 % (<6.0); Total Hemoglobin (HGBA1C) 3628.3355 umol/L
[2024-10-01 11:59] LABS: Alanine Aminotransferase 22 U/L (0-31); Albumin Level 4.4 g/dL (3.5-5.0); Alkaline Phosphatase 112 U/L (39-117); Anion Gap 13 (12-20); Aspartate Amino Transferase 24 U/L (5-31); Bilirubin Total 0.6 mg/dL (0.0-1.0); Blood Urea Nitrogen 11 mg/dL (9-16); Calcium 9.7 mg/dL (8.4-10.2); Carbon Dioxide 29 mmol/L (22-29); Chloride 103 mmol/L (96-108); Cholesterol 224 mg/dL (<200); Estimated Glomerular Filt Rate > 60; Glucose Fasting 99 mg/dL (60-99); HDL Cholesterol 43 mg/dL (>40); LDL Cholesterol Calculated 149 mg/dL (<100); Potassium 3.4 mmol/L (3.3-5.1); Sodium 142 mmol/L (135-145); Total Protein 7.6 g/dL (6.5-8.0); Triglycerides 162 mg/dL (<150)
[2024-10-01 12:17] LABS: Creatinine Urine 222.15 mg/dL; Microalbum/Creatinine Ratio Ur 4.5 ug/mg cr (<30)
[2024-10-01 12:18] LABS: TSH reflex Free T4 0.35 uIU/mL (0.32-4.0); Vitamin D 25-OH Total 52.2 ng/mL (>30)
== END 2024-10-01 07:32 | disposition home or self-care (01) ==
LOC: HO.WFDLDS 07:31
PROVIDERS: Visit Provider Nurse Practitioner Family
DX: I10 Essential (primary) hypertension (principal); E05.90 Thyrotoxicosis, unspecified without thyrotoxic crisis or storm; E78.2 Mixed hyperlipidemia; R73.03 Prediabetes
CPT/HCPCS: 36415; 80053; 80061; 82043; 82306; 82570; 83036; 84443

== ENCOUNTER 2024-10-10 15:19 | Outpatient (AMB) | payer OTHER, SELFPAY ==
--- NOTE | 2024-10-10 15:33 | MHC.PC.OV ---
Vital Signs 10/10/24 15:40 10/10/24 15:44 Height 5 ft 5 in Weight 187 lb 2 oz BMI 31.1 BP 138/96 H 118/86 Blood Pressure Location Rt brachial Rt brachial Position Sitting Sitting Pulse 67 Pulse Source Pulse Oximeter Pulse Oximetry (%) 97 Oxygen Delivery Method Room Air Intake Visit Reasons: 6 months routine f/u - see comments Intake Note: Six month follow up Ultrasonic Solderer Required: No Allergies No Known Allergies Allergy (Verified 10/10/24 15:35) Medication List - Last Reconciled 10/10/24 by Jillian Rosales PA-C hydrochlorothiazide 25 mg PO DAILY Tobacco use date assessed: 10/10/24 Dental Screening Dental Screen Date: 10/10/24 Did you have a dental visit in the last 12 months?: Yes Did you have a dental problem in the last 6 months where you did not have access to dental care?: No Was dental information given to patient?: Patient has dentist HPI 6 months routine f/u - see comments HPI Details Patient is a 47-year-old female with a significant past medical history of breast cancer, melanoma, multinodular goiter, insomnia seasonal allergies, and hypertension presenting today for a physical exam but she does have a list of concerns today. HEENT: She states that for the last 5 months she has had sinus pain and pressure and nasal pain. She went to urgent care about a month ago and had amoxicillin for a sinus infection which was helpful but sx returned/never fully resolved. She states she has followed with Allergy and immunology in the past and found this very ineffective. She goes for monthly allergy shots. She states that she has not bothered to call them to tell him about this because she knows that they will just give her a nasal spray. She says that she does not like Flonase because it runs down the back of her throat. We did review how to properly spray the nasal spray. She is not on any antihistamine. She is just upset because it feels like it just came on at a nowhere and that there is something really wrong on the left side. She states even her gums feels swollen. She is up-to-date with a dentist. She did discuss this with the dentist but they did not do any imaging. It does not feel like it is her teeth. She feels like her lymph nodes in the left side are also a bit enlarged. -she wants to see ENT -Follows with allergy and immunology -She states she went to the dentist -was noted to have abnormal cervical lymphadenopathy and due to have this ultrasound repeated 1 year ago. She did not follow up at [facility] with this. She states that she got busy with other things to do. Msk: She has neck pain that radiates to the left arm. she states it feels like she has to stretch certain ways. This comes and goes. This has been going on for about a year. She states that she go goal to in it sounds like it could be a pinched nerve. She does not understand why it is only happening on the left side and not the right side. She tells me that when she pushes on her shoulder blade in certain areas she can trigger the pain or it feels uncomfortable. She is also getting low back pain that can go down her leg on the left side that is sharp and shooting. At times it radiates into the groin. She states that if she walks a couple of mi she will feel the pain wrapping around from the low back and into the groin. At night she is also getting pain in her hips but worse on the left. If she rolls over on her left side she feels the pain on the side of the hip. There was no specific trauma. These symptoms have been going on for at least 6 months maybe longer. She has a hard time telling me when it all started. There was no specific injury. She uses Advil which is intermittently helpful. She denies any bowel or bladder dysfunction. No numbness, tingling or weakness. Psych: Trazodone has been helpful for the insomnia prn. has not been taking this regularly. Endo: FNA benign on 07/21/23. We will need repeat ultrasound in 1 year. This was already ordered and scheduled at [facility]. States that she never did this. Derm: She maintains close follow up with Dr. Ybarra at [facility]. CV: Blood pressure today in the office is 118/86. She is compliant with hydrochlorothiazide 25 mg. Currently working on a low-fat diet Colonoscopy: Booked at [facility] for 10[facility]15/24 but has to reschedule Pap: 03/2023- utd Mammo: 05/25/23, utd Bone density: Postmenopausal for 2 years [facility] Medical History (Updated 10/10/24 @ 16:33 by Jillian Rosales PA-C) Obesity, Class I, BMI 30-34.9 Multinodular goiter Hyperthyroidism HTN (hypertension) Melanoma Fatigue Breast cancer, right Family History Other FH: mental illness Substance use Social History (Updated 10/10/24 @ 15:45 by Marie Harrison CMA) Housing: House Alcohol intake: current Patient Tobacco Use Status: Former Tobacco user Years Smoked: 10 e-Cigarette/Vaping Use: Never Used Second Hand Smoke Exposure: No Use of substances other than those prescribed or required for medical reasons: No service: No Current occupational status: employed 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 1. Little interest or pleasure in doing things: not at all 2. Feeling down, depressed, or hopeless: not at all 3. Trouble falling or staying asleep, or sleeping too much: not at all 4. Feeling tired or having little energy: not at all 5. Poor appetite or overeating: not at all 6. Feeling bad about yourself - or that you are a failure or have let yourself or your family down: not at all 7. Trouble concentrating on things, such as reading the newspaper or watching television: not at all 8. Moving or speaking so slowly that other people could have noticed. Or the opposite - being so fidgety or restless that you have been moving around a lot more than usual: not at all 9. Thoughts that you would be better off or of hurting yourself in some way: not at all Total score: 0 Depression Screening Interpretation: Negative Depression Screening Done: Yes 22260 - PHQ-9 Billing: Yes Source: Developed by Drs. Tom Busby, Ekaterina Angel, Eugene Fang and colleagues, with an educational greg from [employer]. Thrive Questionnaire Date Thrive assessed: 10/10/24 I am a: Patient What is your living situation today?: I have a steady place to live Within the past 12 months, did the food you bought not last and you didn't have the money to get more?: Never true Within the past 12 months, did you worry whether your food would run out before you got money to buy more?: Never true Do you have trouble paying for medicines?: No Do you have trouble getting transportation to medical appointments?: No Do you have trouble paying your heating and electricity bill?: No Do you have trouble taking care of your child, family member or friend?: No Do you have trouble with day-to-day activities such as bathing, preparing meals, shopping, managing finances, etc.?: No Are you currently unemployed and looking for a job?: No Are you interested in more education?: No Please select the resources that you would like help with: None Currently or been in a relationship where the following occur: No concerns reported THRIVE Score: 0 AUDIT C Alcohol Use Questionnaire (AUDIT-C) 1. How often do you have a drink containing alcohol?: Monthly or less 2. How many drinks containing alcohol do you have on a typical day when you are drinking?: 1 or 2 3. How often do you have six or more drinks on one occasion?: Never Total Score: 1 ARTIE-7 AMB Questionnaire ARTIE-7 Date ARTIE - 7 assessed: 10/10/24 Feeling nervous, anxious, or on edge: 0 = Not at all Not being able to stop or control worryin = Not at all Worrying too much about different things: 0 = Not at all Trouble relaxin = Not at all Being so restless that it is hard to sit still: 0 = Not at all Becoming easily annoyed or irritable: 0 = Not at all Feeling afraid as if something awful might happen: 0 = Not at all Total ARTIE-7 score (0-4 normal; 5-9 mild; 10-14 moderate; 15-21 severe): 0 Source: Developed by Drs. Tom Busby, Ekaterina Angel, Eugene Fang and colleagues, with an educational greg from [employer]. ARTIE-7 Assessment Billing ARTIE-7 Assessment Tool: ARTIE-7 Assessment 51523 Physical exam (Primary Care) Vital Signs: Last Vital Signs Pulse 67 10/10/24 15:40 BP 118/86 10/10/24 15:44 Pulse Ox 97 10/10/24 15:40 Oxygen Delivery Method Room Air 10/10/24 15:40 BMI result Body Mass Index 31.1 Tobacco/Smoking Status: Tobacco use Status Tobacco use date assessed 10/10/24 10/10/24 15:39 Patient Tobacco Use Status Former Tobacco user 10/10/24 15:45 e-Cigarette/Vaping Use Never Used 10/10/24 15:45 PHQ-9: PHQ-9 Score PHQ-9: Total score 0 10/10/24 15:39 Depression Screening Interpretation: Negative Thrive Assessment: Date of Thrive Assessment Date Thrive assessed 10/10/24 10/10/24 15:34 Currently or been in a relationship where the following occur: No concerns reported Const Orientation/consciousness: patient oriented x3 HENMT Other: There is a sore noted in the left nares. There is a small scab over it. The septum is slightly deviated. No drainage noted. There is left-sided maxillary sinus tenderness present. Ears: hearing grossly normal bilaterally and TM's normal bilaterally General nose exam: No nasal polyps present Face and sinus: Yes sinuses nontender Mouth: Normal oral and palatal mucosa present Throat: Yes posterior oropharynx normal Eyes General: appearance normal, both eyes and all related structures Pupils: Equal, round and reactive pupils present EOM: EOMs intact bilaterally Neck Neck: Yes full ROM and Yes no lymphadenopathy Thyroid: diffusely enlarged Lymphatic: lymphadenopathy (Bilateral cervical lymphadenopathy noted) Chest Chest palpation & inspection: normal inspection of the chest Resp Auscultation: clear to auscultation bilaterally Cardio Rate: regular rate Rhythm: regular rhythm Heart sounds: S1 normal heart sound present and S2 normal heart sound present Peripheral pulses: Peripheral pulses 2+ throughout GI Other: Soft, nontender Auscultation: normal bowel sounds Rectal Exam - Female: deferred General: Yes no CVA tenderness Back/Spine/Pelvis Back: no CVA tenderness Cervical Spine: cervical ROM normal and cervical muscular tenderness Thoracic/Lumbar Spine: thoracic and lumbar spine normal to inspection, straight leg raise negative bilaterally and paraspinal muscle tenderness on the left in the upper thoracic and in the mid thoracic Skin General skin exam: no rashes or lesions noted Neuro General: patient oriented x3, gait normal, CN's II-XI intact bilaterally and deep tendon reflexes 2+ bilaterally Cranial nerves: Yes Equal, round and reactive pupils present Motor exam (neuro): 5/5 motor strength present throughout Sensory Exam: double simultaneous stimulation for sensation normal Coordination: [id number] test normal Extrem Other: Negative Speed's test. Negative empty can test. There is some tenderness to palpation to the left subacromial space. General: Yes normal to inspection, Yes full ROM and Yes capillary refill normal Psych Appearance: grossly normal Mental Status: mental status grossly normal Speech and movement: Normal speech and movement present Affect: normal affect Attitude: cooperative Thought process: Normal thought process present Thought content: Normal thought content present Insight: Good insight present (Psych) Judgement: Good judgement present (Psych) Coding Level of Care Code Est Pt Level 5 (74579) Complex EM visit Add On G2211 Diagnoses Routine general medical examination at a health care facility Z00.00 Multinodular goiter E04.2 Chronic sinusitis J32.9 Nasal sore J34.89 Left shoulder pain M25.512 Upper back pain M54.9 Lumbar pain with radiation down left leg M54.50; M79.605 Left hip pain M25.552 Mixed hyperlipidemia E78.2 Hyperlipidemia type: mixed hyperlipidemia Prediabetes R73.03 Primary hypertension I10 Hypertension type: primary hypertension Malignant neoplasm of right female breast, unspecified estrogen receptor status, unspecified site of breast C50.911 Breast location: unspecified site of breast Estrogen receptor status: unspecified Patient sex: female Additional Codes ARTIE-7 Assessment Billing - ARTIE-7 Assessment Tool: ARTIE-7 Assessment 15239 ([id number]) PHQ-9 - 93058 - PHQ-9 Billing: Yes ([id number]) Assessment & Plan Assessment & Plan (1) Routine general medical examination at a health care facility: Code(s): Z00.00 - Encounter for general adult medical examination without abnormal findings Plan: reviewed labs reviewed Bone density ordered 90 minutes spent today in [id number]-vm-kudv time reviewing a list of her concerns, coordinating her care (2) Multinodular goiter: Code(s): E04.2 - Nontoxic multinodular goiter Category: Medical Plan: Ultrasound ordered TSH ordered Referral to endo (3) Chronic sinusitis: Code(s): J32.9 - Chronic sinusitis, unspecified Category: Medical Plan: Appears to be exacerbated. We will treat her for an acute bacterial infection. We will start her on Cipro. Discussed risks and benefits and adverse effects of this medication. I am also putting her on a prednisone taper for her back and neck and did discuss that this should help some of the sinus inflammation Advised to treat with Xyzal and azelastine once her nasal sore is improved CT sinuses ordered Referral to ENT (4) Nasal sore: Code(s): J34.89 - Other specified disorders of nose and nasal sinuses Category: Medical Plan: Treat with mupirocin cream (5) Left shoulder pain: Code(s): M25.512 - Pain in left shoulder Category: Medical Plan: X-ray ordered (6) Upper back pain: Code(s): M54.9 - Dorsalgia, unspecified Category: Medical Plan: X-ray ordered. Referral to PT. Encouraged heat, ice and gentle stretching. I have also encouraged her to try massage therapy. (7) Lumbar pain with radiation down left leg: Code(s): M54.50 - Low back pain, unspecified; M79.605 - Pain in left leg Category: Medical Plan: As above (8) Left hip pain: Code(s): M25.552 - Pain in left hip Category: Medical Plan: As above Also given the numerous joint pains we will check an arthritis panel. (9) Hyperlipidemia: Code(s): E78.5 - Hyperlipidemia, unspecified Category: Medical Qualifiers: Hyperlipidemia type: mixed hyperlipidemia Qualified Code(s): E78.2 - Mixed hyperlipidemia Plan: Reviewed low-fat diet (10) Prediabetes: Code(s): R73.03 - Prediabetes Category: Medical Plan: A1c ordered (11) HTN (hypertension): Code(s): I10 - Essential (primary) hypertension Category: Medical Qualifiers: Hypertension type: primary hypertension Qualified Code(s): I10 - Essential (primary) hypertension Plan: WNL. Continue current regimen (12) Breast cancer, right: Code(s): C50.911 - Malignant neoplasm of unspecified site of right female breast Category: Medical Qualifiers: Breast location: unspecified site of breast Estrogen receptor status: unspecified Patient sex: female Qualified Code(s): C50.911 - Malignant neoplasm of unspecified site of right female breast Plan: Being monitored by Heme-Onc Orders: Orders Rheumatoid Factor Today E04.2 - Nontoxic multinodular goiter, J32.9 - Chronic sinusitis, unspecified, J34.89 - Other specified disorders of nose and nasal sinuses, M25.512 - Pain in left shoulder, M25.552 - Pain in left hip, M54.50 - Low back pain, unspecified, M54.9 - Dorsalgia, unspecified, M79.605 - Pain in left leg Complete Blood Count Auto Diff Today E04.2 - Nontoxic multinodular goiter, J32.9 - Chronic sinusitis, unspecified, J34.89 - Other specified disorders of nose and nasal sinuses, M25.512 - Pain in left shoulder, M25.552 - Pain in left hip, M54.50 - Low back pain, unspecified, M54.9 - Dorsalgia, unspecified, M79.605 - Pain in left leg Lyme IgG/IgM w/reflex to WB Today E04.2 - Nontoxic multinodular goiter, J32.9 - Chronic sinusitis, unspecified, J34.89 - Other specified disorders of nose and nasal sinuses, M25.512 - Pain in left shoulder, M25.552 - Pain in left hip, M54.50 - Low back pain, unspecified, M54.9 - Dorsalgia, unspecified, M79.605 - Pain in left leg Vitamin B12 and Folate Today E04.2 - Nontoxic multinodular goiter, J32.9 - Chronic sinusitis, unspecified, J34.89 - Other specified disorders of nose and nasal sinuses, M25.512 - Pain in left shoulder, M25.552 - Pain in left hip, M54.50 - Low back pain, unspecified, M54.9 - Dorsalgia, unspecified, M79.605 - Pain in left leg Magnesium Today E04.2 - Nontoxic multinodular goiter, J32.9 - Chronic sinusitis, unspecified, J34.89 - Other specified disorders of nose and nasal sinuses, M25.512 - Pain in left shoulder, M25.552 - Pain in left hip, M54.50 - Low back pain, unspecified, M54.9 - Dorsalgia, unspecified, M79.605 - Pain in left leg TSH reflex Free T4 Today E04.2 - Nontoxic multinodular goiter, J32.9 - Chronic sinusitis, unspecified, J34.89 - Other specified disorders of nose and nasal sinuses, M25.512 - Pain in left shoulder, M25.552 - Pain in left hip, M54.50 - Low back pain, unspecified, M54.9 - Dorsalgia, unspecified, M79.605 - Pain in left leg XR lumbar spine 2-3V Today E04.2 - Nontoxic multinodular goiter, J32.9 - Chronic sinusitis, unspecified, J34.89 - Other specified disorders of nose and nasal sinuses, M25.512 - Pain in left shoulder, M25.552 - Pain in left hip, M54.50 - Low back pain, unspecified, M54.9 - Dorsalgia, unspecified, M79.605 - Pain in left leg XR hips ALEJANDRA min 3V Today E04.2 - Nontoxic multinodular goiter, J32.9 - Chronic sinusitis, unspecified, J34.89 - Other specified disorders of nose and nasal sinuses, M25.512 - Pain in left shoulder, M25.551 - Pain in right hip, M25.552 - Pain in left hip, M54.50 - Low back pain, unspecified, M54.9 - Dorsalgia, unspecified, M79.605 - Pain in left leg XR DEXA axial skeleton Today E04.2 - Nontoxic multinodular goiter, N95.9 - Unspecified menopausal and perimenopausal disorder, Z13.820 - Encounter for screening for osteoporosis XR shoulder LT min 2V Today E04.2 - Nontoxic multinodular goiter, J32.9 - Chronic sinusitis, unspecified, J34.89 - Other specified disorders of nose and nasal sinuses, M25.512 - Pain in left shoulder, M25.552 - Pain in left hip, M54.50 - Low back pain, unspecified, M54.9 - Dorsalgia, unspecified, M79.605 - Pain in left leg PT Evaluation and Treatment Today M25.512 - Pain in left shoulder, M25.552 - Pain in left hip, M54.50 - Low back pain, unspecified, M54.9 - Dorsalgia, unspecified, M79.605 - Pain in left leg NICHOLAS Reflex Titer and Pattern Today E04.2 - Nontoxic multinodular goiter, J32.9 - Chronic sinusitis, unspecified, J34.89 - Other specified disorders of nose and nasal sinuses, M25.512 - Pain in left shoulder, M25.552 - Pain in left hip, M54.50 - Low back pain, unspecified, M54.9 - Dorsalgia, unspecified, M79.605 - Pain in left leg Erythrocyte Sedimentation Rate Today E04.2 - Nontoxic multinodular goiter, J32.9 - Chronic sinusitis, unspecified, J34.89 - Other specified disorders of nose and nasal sinuses, M25.512 - Pain in left shoulder, M25.552 - Pain in left hip, M54.50 - Low back pain, unspecified, M54.9 - Dorsalgia, unspecified, M79.605 - Pain in left leg XR cervical spine 3V Today E04.2 - Nontoxic multinodular goiter, J32.9 - Chronic sinusitis, unspecified, J34.89 - Other specified disorders of nose and nasal sinuses, M25.512 - Pain in left shoulder, M25.552 - Pain in left hip, M54.2 - Cervicalgia, M54.50 - Low back pain, unspecified, M54.9 - Dorsalgia, unspecified, M79.605 - Pain in left leg XR thoracic spine 3V Today E04.2 - Nontoxic multinodular goiter, J32.9 - Chronic sinusitis, unspecified, J34.89 - Other specified disorders of nose and nasal sinuses, M25.512 - Pain in left shoulder, M25.552 - Pain in left hip, M54.50 - Low back pain, unspecified, M54.6 - Pain in thoracic spine, M54.9 - Dorsalgia, unspecified, M79.605 - Pain in left leg US soft tiss head and/or neck Today E04.2 - Nontoxic multinodular goiter, J32.9 - Chronic sinusitis, unspecified, J34.89 - Other specified disorders of nose and nasal sinuses, M25.512 - Pain in left shoulder, M25.552 - Pain in left hip, M54.50 - Low back pain, unspecified, M54.9 - Dorsalgia, unspecified, M79.605 - Pain in left leg CT sinus wo IV con Today E04.2 - Nontoxic multinodular goiter, J32.9 - Chronic sinusitis, unspecified, J34.89 - Other specified disorders of nose and nasal sinuses, M25.512 - Pain in left shoulder, M25.552 - Pain in left hip, M54.50 - Low back pain, unspecified, M54.9 - Dorsalgia, unspecified, M79.605 - Pain in left leg Hemoglobin A1c Today R73.01 - Impaired fasting glucose Referrals Endocrinology Referral E04.2 - Nontoxic multinodular goiter Ear/Nose/Throat Referral J32.9 - Chronic sinusitis, unspecified, J34.89 - Other specified disorders of nose and nasal sinuses Medications: New levocetirizine (Xyzal) 5 mg PO QPM 90 tabs 1RF prednisone take 3 tab po x 3 days, take 2 tab po x 3 days, 1 tab po x 3 days 18 tabs 0RF mupirocin calcium 2% 1 appl topical TID 10 days 15 grams 0RF azelastine administer into each nostril 2 sprays intranasal ONCE 30 mL 4RF ciprofloxacin HCl (Cipro) 500 mg PO BID 20 tabs 0RF
[2024-10-10 15:40] VITALS: BP 138/96; PULSE 67; O2SAT 97; BMI 31.1
[2024-10-10 15:44] VITALS: BP 118/86
--- OUTSIDE RECORDS SUMMARY | 2024-10-10 15:55 | XMS_ITS ---
Author Organization [facility] Address [address] [place] [address] Care Team Providers Care Ring Sorter Name Role Phone Vickie Sutton MD Primary Care Provider [phone] Active Problems Problem Noted Date Diagnosed Date Malignant neoplasm of upper- outer quadrant of right breast in female, estrogen receptor positive 10/29/2019 Current Oncology Plans [facility] GOSERELIN 3.6MG (ZOLADEX)* Plan Start Date:09/14/2023 Plan Provider:Marlena Mayberry DO Linked Problems Malignant neoplasm of upper- outer quadrant of right breast in female, estrogen receptor positive (HCC) Treatment Medications goserelin (ZOLADEX) Past Plans ONCOLOGY INFUSION THERAPY Plan Name Start Date Discontinue Date Treatment Medications Discontinue Reason Plan Provider [facility] GOSERELIN 3.6MG (ZOLADEX) 10/06/2022 09/14/2023 goserelin (ZOLADEX) Entered in error Marlena Mayberry DO [facility] GOSERELIN 3.6MG (ZOLADEX) 11/04/2021 10/06/2022 goserelin (ZOLADEX) Entered in error Antonino Das MD Radiation Treatments * No radiation treatments are documented for this patient in [facility]. Treatments may have been administered in another system.
--- OUTSIDE RECORDS SUMMARY | 2024-10-10 15:55 | XMS_ITS | Clinical Summary ---
Author Organization [facility] Address [address] [place] [address] Care Team Providers Care Mat Maker Name Role Phone Vickie Sutton MD Primary Care Provider [phone] Allergies No known active allergies Medications Medication [...] age to complete this topic Care Teams Mat Maker Relationship Specialty Start Date End Date Vickie Sutton MD PCP - General Internal Medicine 09/08/23
--- OUTSIDE RECORDS SUMMARY | 2024-10-10 15:55 | XMS_ITS ---
Author Organization [facility] Address [address] [place] [phone] Phone Care Team Providers Care Produce Team Lead Name Role Phone Vickie Sutton MD Primary Care Provider [phone] Active Problems Problem Noted Date Diagnosed Date Malignant neoplasm of right female breast, unspecified estrogen receptor status, unspecified site of breast ([facility] V24, [facility] V28) 04/25/2024 Malignant neoplasm of female breast ([facility] V24, [facility] V28) 04/15/2021 Current Oncology Plans GOSERELIN (ZOLADEX) 3.6 MG EVERY 4 WEEKS* Plan Start Date:04/25/2024 Plan Provider:Marlena Mayberry, Linked Problems Malignant neoplasm of female breast, unspecified estrogen receptor status, unspecified laterality, unspecified site of breast (CMS/HCC V24, [facility] V28)Malignant neoplasm of right female breast, unspecified estrogen receptor status, unspecified site of breast ([facility] V24, [facility] V28) Treatment Medications goserelin (ZOLADEX) Past Plans No past plan information found. Radiation Treatments * No radiation treatments are documented for this patient in [facility]. Treatments may have been administered in another system.
--- OUTSIDE RECORDS SUMMARY | 2024-10-10 15:55 | XMS_ITS | Encounter Summary ---
Author Organization [facility] Address [address] [place] [address] Care Team Providers Care Electronic Assembler Name Role Phone Jillian Rosales Primary Care Provider [phone] Encounter Details Date Type Department Care Team [...] Care Team (Late st Contact Info) Description 10/15/2024 3:00 PM EDT Hospital Encounter [facility] Endoscopy [address] [place] [phone] Emigdio De La Garza DO [address] [facility] [address] [place] [address] 11/07/2024 1:30 PM EDT Appointment [facility] Infusion Center [address] [facility] 2[address] [place] [address] 12/19/2024 9:00 AM EDT Office Visit [facility] Hematology Oncology [address] [place] [address] Marlena Mayberry DO [address] [place] [address] documented as of this encounter Visit Diagnoses Not on filedocumented in this encounter Care Teams Electronic Assembler Relationship Specialty Start Date End Date Jlilian Rosales PA PCP - General Physician Striper 09/30/21 09/07/23 documented as of this encounter
--- OUTSIDE RECORDS SUMMARY | 2024-10-10 15:55 | XMS_ITS | Clinical Summary ---
Author Organization [facility] Address [address] [place] [phone] Phone Care Team Providers Care Conservation Planner Name Role Phone Vickie Sutton MD Primary Care Provider [phone] Allergies No known active allergies Medications albuterol HFA (PROAIR HFA ; PROVENTIL HFA ; VENTOLIN HFA) 90 mcg/actuation inhaler Inhale 2 puffs by mouth every 6 hours as needed for wheezing. 9 Active hydroCHLOROthia zide 12.5 mg tablet Take 1 tablet (12.5 mg total) by mouth 1 (one) time each day. 3 Active goserelin (Zoladex) 3.6 mg implant Inject 3.6 mg under the skin 1 (one) time. Active calcium carbonate-vitam in D 500 mg-5 mcg (200 unit) per tablet Take 1 tablet by mouth 1 (one) time each day. Active polyethylene glycol (Golytely) 236-22.74-6.74 -5.86 gram solution Take 4L by mouth once for one dose. May substitue any PEG. Starting at 6PM the night before your procedure drink 1 8oz glasses at your own pace until you complete half of the gallon. Finish 2nd half of the gallon 5 hours before your procedure. 4000 mL 5 Active bisacodyL (DULCOLAX) 5 mg EC tablet Take 2 tablets by mouth right before beginning bowel prep. See instructions provided by the office 2 tablet 5 Active Active Problems Problem Noted Date Diagnosed Date Malignant neoplasm of right female breast, unspecified estrogen receptor status, unspecified site of breast ([facility] V24, CMS/HCC V28) 04/25/2024 Malignant neoplasm of female breast (CMS/HCC V24, CMS/HCC V28) 04/15/2021 Encounters Date Type Department Care Team Description 10/10/2024 1:30 PM EDT Hospital Encounter [address] [address] Jena Gonzales, Malignant neoplasm of right female breast, unspecified estrogen receptor status, unspecified site of breast (CMS/HCC V24, CMS/HCC V28) (Primary Dx); Malignant neoplasm of female breast, unspecified estrogen receptor status, unspecified laterality, unspecified site of breast (CMS/HCC V24, CMS/HCC V28) 09/12/2024 1:30 PM EDT - 09/12/2024 11:59 PM EDT Hospital Encounter [address] [address] Jena Gonzales, Malignant neoplasm of female breast, unspecified estrogen receptor status, unspecified laterality, unspecified site of breast (CMS/HCC V24, CMS/HCC V28) (Primary Dx); Malignant neoplasm of right female breast, unspecified estrogen receptor status, unspecified site of breast (CMS/HCC V24, CMS/HCC V28) Discharge Disposition: Home or Self Care 08/15/2024 1:30 PM EDT - 08/15/2024 11:59 PM EDT Hospital Encounter [address] [address] Jena Gonzales DO Malignant neoplasm of right female breast, unspecified estrogen receptor status, unspecified site of breast (CMS/HCC V24, CMS/HCC V28) (Primary Dx); Malignant neoplasm of female breast, unspecified estrogen receptor status, unspecified laterality, unspecified site of breast (CMS/HCC V24, CMS/HCC V28) Discharge Disposition: Home or Self Care 07/18/2024 1:14 PM EST - 07/18/2024 11:59 PM EST Hospital Encounter [address] [address] Jena Gonzales DO Malignant neoplasm of right female breast, unspecified estrogen receptor status, unspecified site of breast ([facility] V24, [facility] V28) (Primary Dx); Malignant neoplasm of female breast, unspecified estrogen receptor status, unspecified laterality, unspecified site of breast ([facility] V24, [facility] V28) Discharge Disposition: Home or Self Care [...] Orientation Straight 10/10/2024 1: 31 PM EDT Obstetrics History Last Filed Vital Signs Vital Sign Reading Time Taken Comments Blood Pressure 120/86 10/10/2024 1:35 PM EDT Pulse 95 10/10/2024 1:35 PM EDT Temperature 36.4 ??C (97.6 ??F) 10/10/2024 1:35 PM ED T Respiratory Rate 12 10/10/2024 1:35 PM EDT Oxygen Saturation 99% 10/10/2024 1:35 PM EDT Inhaled Oxygen Concentration - - Weight 86.6 kg (191 lb) 06/20/2024 2:27 PM EST Height 165.1 cm (5' 5 ) 06/20/2024 2:27 PM EST Body Mass Index 31.78 06/20/2024 2:27 PM EST Plan of Treatment Upcoming Encounters Date Type Department Care Team (Late st Contact Info) Description 10/15/2024 3:00 PM EDT Hospital Encounter [facility] Endoscopy [address] [place] [address] Emigdio De La Garza DO [address] [facility] [address] [place] [address] 11/07/2024 1:30 PM EDT Appointment [facility] Infusion Center [address] [facility] [address] [place] [phone] 12/19/2024 9:00 AM EDT Office Visit [facility] Hematology Oncology [address] [place] [address] Jena Gonzales, DO [address] [place] [address] Health Maintenance Due Date Last Done Comments [...] Procedure Name Priority Date/Time Associated Diagnosis Comments [facility] DEXA AXIAL SKELETON Routine 01/02/2024 7:39 AM EDT Other specified disorders of bone density and structure, other site from Last 3 Months or Most Recently Relevant to Health Maintenance Results * [facility] DEXA AXIAL SKELETON (01/02/2024 7:39 AM EDT) Anatomical Region Laterality Modality Mammography 01/01/2024 1:24 PM EDT Narrative 01/02/2024 7:39 AM EDT [facility] Diagnostic Imaging Department [address] [place], [place] [id number] Patient: ??THOMAS,CHANELL ?/Age/Sex: 1975 - 48 - F Unit#: ??[id number] ? Location/Status: ??SPDIMAM/REG CLI ? Mnemonic/Ordering Site: ??MAMDEXAAX/SPMAM Ordering Physician: ??JENA GONZALES [facility] Dexa Axial Skeleton - 01/01/24 - 1342 [...] probability of hip fracture of 0.5%. Code 35558 Dictating Physician: ??CAMILLA WEBB MD Electronically Signed by: ??CAMILLA WEBB MD Dic Date/Time: ??01/02/24 0738 Sign date/Time: ??01/02/24 0739 Procedure Note Camilla Webb MD - 03/20/2024 [facility] Diagnostic Imaging Department [address] [place] [address] Patient: CHANELL THOMAS/Age/Sex: 1975 - 48 - F Unit#: [id number] Location/Status: SPDIMAM/REG CLI Mnemonic/Ordering Site[facility] Ordering Physician: JENA GONZALES [facility] Dexa Axial [...] density of the femurs bilaterally is 0.948 gm/aa5gbnwl is 94% of that of young normals [...] probability of hip fracture of 0.5%. Code 87251 Dictating Physician: CAMILLA WEBB MD Electronically Signed by: CAMILLA WEBB MD Dic Date/Time: 01/02/2438 Sign date/Time: 01/02/24 0739 Jena Jc Shawanda DO IMG BI PROCEDURES Fin al Result from Last 3 Months or Most Recently Relevant to Health Maintenance Insurance [facility] Care Teams Conservation Planner Relationship Specialty Start Date End Date Vickie Sutton MD [address] [place] [phone] PCP - General Endocrinology 07/18/24
--- OUTSIDE RECORDS SUMMARY | 2024-10-10 15:55 | XMS_ITS | Continuity of Care Document ---
Author Organization [facility] [address] [place] [address] Phone [phone] Care Team Providers Care Security Rep Name Role Phone Kenzi. PETTY Rosales Care Team Information Workforce Development Vice President [phone] Problems Active Problems Provider Date Carcinoma of [...] Code Description Provider 07/26/2022 E04.2 Multinodular goiter nAil macias M.D. 07/26/2022 Z85.3 Personal history of primary malignant neoplasm of breast Anil Mathias M.D. 07/26/2022 Z85.89 H/O Malignant melanoma Anil Mathias M.D. Plan of Treatment No Information Available Functional Status Description No Information Available Mental Status Description No Information Available Referrals Description No Information Available
--- OUTSIDE RECORDS SUMMARY | 2024-10-10 15:55 | XMS_ITS | Encounter Summary ---
Author Organization [facility] Address [address] [place] [phone] Care Team Providers Care Survey Party Chief Name Role Phone Vickie Sutton MD Primary Care Provider [phone] Reason for Visit * Episode Based Medications (Routine) - Authorized Specialty Diagnoses / Procedures Referred By Contac t Referred To Contact Diagnoses Malignant neoplasm of female breast, unspecified estrogen receptor status, unspecified laterality, unspecified site of breast ([facility] V24, [facility] V28) Malignant neoplasm of right female breast, unspecified estrogen receptor status, unspecified site of breast ([facility]/HCC V24, [facility] V28) Marlena Mayberry DO [address] [place] [address] Phone: tel: fax: [address] [address] Phone: tel: fax: Referral ID Status Reason Start Date Expiration Date V isits Requested Visits Authorized [id number] Authorized 04/04/2024 04/04/2025 1 12 Encounter Details Date Type Department Care Team (Latest Contact Info) Description 10/10/2024 1:30 PM EDT Hospital Encounter [address] [address] Marlena Mayberry DO [address] [place] [phone] Malignant neoplasm of right female breast, unspecified estrogen receptor status, unspecified site of breast (CMS/HCC V24, CMS/[facility] V28) (Primary Dx); Malignant neoplasm of female breast, unspecified estrogen receptor status, unspecified laterality, unspecified site of breast ([facility] V24, [facility] V28) Social History Tobacco Use Types Packs/Day Years [...] EDT Inhaled Oxygen Concentration - - Weight - - Height - - Body Mass Index - - documented in this encounter Plan of Treatment Upcoming Encounters Date Type Department Care Team (Late st Contact Info) Description 10/15/2024 3:00 PM EDT Hospital Encounter [facility] Endoscopy [address] [place] [address] Emigdio De La Garza DO 175 [facility] [address] [place] [address] 11/07/2024 1:30 PM EDT Appointment [facility] Infusion Center [address] [facility] [address] [place] [address] 12/19/2024 9:00 AM EDT Office Visit [facility] Hematology Oncology [address] [place] [phone] Marlena Mayberry DO [address] [place] [address] documented as of this encounter Visit Diagnoses Diagnosis Malignant neoplasm of right female breast, unspecified estrogen receptor status, unspecified site of breast ([facility] V24, [facility] V28)- Primary Malignant neoplasm of female breast, unspecified estrogen receptor status, unspecified laterality, unspecified site of breast ([facility] V24, [facility] V28) documented in this encounter Orders Medications Ordered That Jean ht Not Have Been Administered Count Last Ordered Date First Ordered Date goserelin (ZOLADEX) chemo injection 3.6 mg 1 10/10/2024 Nursing Count Last Ordered Date First Orde red Date ONC NURSING COMMUNICATION 1 10/10/2024 ONC NURSING COMMUNICATION 5 1 10/10/2024 TREATMENT CONDITIONS 1 10/10/2024 Appointment Requests Count Last Ordered Date Fi rst Ordered Date ONCBCN INFUSION APPOINTMENT REQUEST 02 1 documented in this encounter Care Teams Survey Party Chief Relationship Specialty Start Date End Date Vickie Sutton MD [address] [place] [phone] PCP - General Endocrinology 07/18/24 documented as of this encounter
--- OUTSIDE RECORDS SUMMARY | 2024-10-10 15:55 | XMS_ITS | Encounter Summary ---
Author Organization [facility] Address [address] [place] [address] Care Team Providers Care Warehouse Distribution Specialist Name Role Phone Vickie Sutton MD Primary Care Provider [phone] Encounter Details Date Type Department Care Team [...] Description 10/15/2024 3:00 PM EDT Hospital Encounter [facility] Endoscopy [address] [place] [address] Emigdio De La Garza DO 175 [facility] [address] [place] [address] 11/07/2024 1:30 PM EDT Appointment [facility] Infusion Center [address] [facility] 2nd [place] [address] 12/19/2024 9:00 AM EDT Office Visit [facility] Hematology Oncology [address] [place] [address] Marlena Mayberry DO [address] [place] [address] documented as of this encounter Visit Diagnoses Not on filedocumented in this encounter Care Teams Warehouse Distribution Specialist Relationship Specialty Start Date End Date Vickie Sutton MD PCP - General 09/08/23 07/17/24 documented as of this encounter
== END 2024-10-10 16:47 | disposition home or self-care (01) ==
LOC: HO.HMCFM 15:20
PROVIDERS: PCP Physician Assistant; Visit Provider Physician Assistant
DX: M25.512 Pain in left shoulder (principal); E04.2 Nontoxic multinodular goiter; J32.9 Chronic sinusitis, unspecified; C50.911 Malignant neoplasm of unspecified site of right female breast; J34.89 Other specified disorders of nose and nasal sinuses; M54.9 Dorsalgia, unspecified; M54.50 Low back pain, unspecified; M79.605 Pain in left leg; M25.552 Pain in left hip; E78.2 Mixed hyperlipidemia; R73.03 Prediabetes; I10 Essential (primary) hypertension

== ENCOUNTER → 2024-10-10 15:19 | Outpatient (BNVA) | payer OTHER, SELFPAY | PROVIDERS: PCP Physician Assistant; Visit Provider Physician Assistant | DX: Z00.00 Encounter for general adult medical examination without abnormal findings (principal); E04.2 Nontoxic multinodular goiter; J32.9 Chronic sinusitis, unspecified; J34.89 Other specified disorders of nose and nasal sinuses; M25.512 Pain in left shoulder; M54.50 Low back pain, unspecified; M79.605 Pain in left leg; M25.552 Pain in left hip; E78.2 Mixed hyperlipidemia; R73.03 Prediabetes; I10 Essential (primary) hypertension; C50.911 Malignant neoplasm of unspecified site of right female breast | CPT/HCPCS: 96127 ==

== ENCOUNTER 2024-11-06 08:39 | Outpatient (AMB) | payer OTHER, SELFPAY ==
--- NOTE | 2024-11-06 08:47 | A.OFFPC_ITS ---
Vital Signs 11/06/24 08:53 Height 5 ft 5 in Weight 190 lb BMI 31.6 BP 112/70 Blood Pressure Location Rt brachial Position Sitting Pulse 64 Pulse Source Pulse Oximeter Pulse Oximetry (%) 98 Oxygen Delivery Method Room Air Intake Visit Reasons: f/u meds Intake Note: Medication follow up Latrine Cleaner Required: No Allergies No Known Allergies Allergy (Verified 11/06/24 08:47) Medication List - Last Reconciled 11/06/24 by Jillian Rosales PA-C azelastine 2 sprays intranasal ONCE hydrochlorothiazide 25 mg PO DAILY levocetirizine (Xyzal) 5 mg PO QPM mupirocin calcium 2% 1 appl topical TID 10 days Tobacco use date assessed: 11/06/24 Dental Screening Dental Screen Date: 10/10/24 Did you have a dental visit in the last 12 months?: Yes Did you have a dental problem in the last 6 months where you did not have access to dental care?: No Was dental information given to patient?: Patient has dentist HPI f/u meds HPI Details Patient is a 48-year-old female with a significant past medical history of breast cancer, melanoma, multinodular goiter, insomnia seasonal allergies, and hypertension presenting today for a f/u for numerous complaints. -please see previous note for further de tails -forgot to do labs and imaging prior to today's appointment. HEENT: At our last visit I did refer her to ENT and she says that she is scheduled but not until August of 2025. She has a CT of the sinuses booked for next week. She did start Xyzal and azelastine which she feels are somewhat helpful. She states she has followed with Allergy and immunology in the past and found this very ineffective. She goes for monthly allergy shots. -she wants to see ENT -Follows with allergy and immunology -She states she went to the dentist -was noted to have abnormal cervical lym phadenopathy and due to have this ultrasound repeated 1 year ago. She did not follow up at [facility] with this. She states that she got busy with other things to do. This is now scheduled for in a couple weeks from now. Msk: [place] from PT but has not booked. She did not get xrays or labs prior to today. States that a family recommended that she tries chiropractic therapy. She has neck pain that radiates to the left arm. she states it feels like she has to stretch certain ways. This comes and goes. Psych: Trazodone has been helpful for the insomnia prn. has not been taking this regularly. Endo: FNA benign on 07/21/23. She was supposed to get a repeat thyroid ultrasound in July 2024 at [facility] but never completed this. She is scheduled with endocrinology next month and has an ultrasound scheduled prior to appointment. Heme/Onc: Follows with [facility] Oncology for management of her right-sided br east cancer. She does get goserelin injections. Derm: She maintains close follow up with Dr. Ybarra at [facility] every 6 months. CV: Blood pressure today in the office is 112/70. She is compliant with hydrochlorothiazide 25 mg. Currently working on a low-fat diet Colonoscopy: Booked at [facility] for 10/15/24 but has to reschedule Pap: 03/2023- utd Mammo: 05/25/23, utd Bone density: scheduled. 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 Current occupational exposures/hazards: No Cognitive needs: No Hearing needs: No Vision needs: No Questionnaire Thrive Questionnaire Date Thrive assessed: 10/10/24 I am a: Patient What is your living situation today?: I have a steady place to live Within the past 12 months, did the food you bought not last and you didn't have the money to get more?: Never true Within the past 12 months, did you worry whether your food would run out before you got money to buy more?: Never true Do you have trouble paying for medicines?: No Do you have trouble getting transportation to medical appointments?: No Do you have trouble paying your heating and electricity bill?: No Do you have trouble taking care of your child, family member or friend?: No Do you have trouble with day-to-day activities such as bathing, preparing meals, shopping, managing finances, etc.?: No Are you currently unemployed and looking for a job?: No Are you interested in more education?: No Please select the resources that you would like help with: None Currently or been in a relationship where the following occur: No concerns reported THRIVE Score: 0 ARTIE-7 AMB Questionnaire ARTIE-7 Date ARTIE - 7 assessed: 10/10/24 Source: Developed by Drs. Tom Busby, Ekaterina Angel, Eugene Fang and colleagues, with an educational greg from [employer]. Physical exam (Primary Care) Vital Signs: Last Vital Signs Pulse 64 11/06/24 08:53 BP 112/70 11/06/24 08:53 Pulse Ox 98 11/06/24 08:53 Oxygen Delivery Method Room Air 11/06/24 08:53 BMI result Body Mass Index 31.6 Tobacco/Smoking Status: Tobacco use Status Tobacco use date assessed 11/06/24 11/06/24 08:54 Patient Tobacco Use Status Former Tobacco user 11/06/24 08:49 e-Cigarette/Vaping Use Never Used 11/06/24 08:49 Thrive Assessment: Date of Thrive Assessment Date Thrive assessed 10/10/24 11/06/24 08:49 Currently or been in a relationship where the following occur: No concerns reported Const Orientation/consciousness: patient oriented x3 [facility] Ears: hearing grossly normal bilaterally Neck Neck: Yes full ROM Thyroid: diffusely enlarged Resp Auscultation: clear to auscultation bilaterally Cardio Rate: regular rate Rhythm: regular rhythm Heart sounds: S1 normal heart sound present and S2 normal heart sound present GI Inspection: Yes normal to inspection Palpation (GI): Soft to palpation and Other GI palpation findings present (nontender, no cva tenderness) Auscultation: normoactive bowel sounds Rectal Exam - Female: deferred Skin General skin exam: no rashes or lesions noted Neuro General: patient oriented x3, gait normal and no focal motor deficits Results Reviewed Results Reviewed: Laboratory Tests 10/01/24 10/01/24 07:33 07:37 Sodium 142 Potassium 3.4 Chloride 103 Carbon Dioxide 29 Anion Gap 13 BUN 11 Creatinine 0.75 Estimated GFR > 60 Fasting Glucose 99 Hemoglobin A1c % 5.5 Calcium 9.7 Total Bilirubin 0.6 AST 24 ALT 22 Alkaline Phosphatase 112 Total Protein 7.6 Albumin 4.4 Triglycerides 162 H Cholesterol 224 H LDL Cholesterol, Calc 149 H HDL Cholesterol 43 25-OH Vitamin D Total 52.2 TSH 0.35 Coding Level of Care Code Est Pt Level 4 (72490) Complex EM visit Add On G2211 Diagnoses Primary hypertension I10 Hypertension type: primary hypertension Multinodular goiter E04.2 Chronic sinusitis J32.9 Polyarthralgia M25.50 Assessment & Plan Assessment & Plan (1) HTN (hypertension): Code(s): I10 - Essential (primary) hypertension Category: Medical Qualifiers: Hypertension type: primary hypertension Qualified Code(s): I10 - Essential (primary) hypertension Plan: WNL continue current regimen (2) Multinodular goiter: Code(s): E04.2 - Nontoxic multinodular goiter Category: Medical Plan: Has follow up arranged with endocrinology and ultrasound. (3) Chronic sinusitis: Code(s): J32.9 - Chronic sinusitis, unspecified Category: Medical Plan: CT of the sinuses is scheduled. Has follow up arranged with ENT. Follows with Allergy and immunology. Advised to continue with the current regimen (4) Polyarthralgia: Code(s): M25.50 - Pain in unspecified joint Plan: Advised to complete labs and x-rays. Plan Discussed the importance of following up with testing.
[2024-11-06 08:53] VITALS: BP 112/70; PULSE 64; O2SAT 98; BMI 31.6
--- OUTSIDE RECORDS SUMMARY | 2024-11-06 08:56 | XMS_ITS | Encounter Summary ---
Author Organization [facility] Address [address] [place] [address] Care Team Providers Care Tin Worker Name Role Phone Vickie Sutton MD Primary Care Provider [phone] Encounter Details Date Type Department Care Team [...] Care Team (Late st Contact Info) Description 11/07/2024 1:[address] [facility] [address] [id number] 12/19/2024 9:00 AM EDT Office Visit [facility] Hematology Oncology [address] [place] [phone] Marlena Mayberry, [address] [place] [address] documented as of this encounter Visit Diagnoses Not on filedocumented in this encounter Care Teams Tin Worker Relationship Specialty Start Date End Date Vickie Sutton MD PCP - General 09/08/23 07/17/24 documented as of this encounter
== END 2024-11-06 09:18 | disposition home or self-care (01) ==
LOC: HO.HMCFM 08:45
PROVIDERS: PCP Physician Assistant; Visit Provider Physician Assistant
DX: I10 Essential (primary) hypertension (principal); E04.2 Nontoxic multinodular goiter; J32.9 Chronic sinusitis, unspecified; M25.50 Pain in unspecified joint

== ENCOUNTER → 2024-11-06 08:39 | Outpatient (BNVA) | payer OTHER, SELFPAY | PROVIDERS: PCP Physician Assistant; Visit Provider Physician Assistant | DX: Z13.89 Encounter for screening for other disorder (principal) ==

== ENCOUNTER 2024-11-06 09:30 | Outpatient (REF) | payer OTHER, SELFPAY ==
[2024-11-06 11:14] LABS: MANUAL DIFF FLAG NO
[2024-11-06 11:38] LABS: Basophils Percent Auto 0.8 % (0-2); Eosinophils Absolute Auto 0.3 X10*3/uL (0.0-0.4); Eosinophils Percent Auto 4.7 % (0-4); Hemoglobin 13.6 g/dl (12.0-16.0); Imm Gran Abs Auto 0.02 X10*3/uL (0.00-0.03); Imm Gran Pct Auto 0.4 % (0.0-0.4); Lymphocytes Absolute Auto 1.6 X10*3/uL (1.2-4.9); Lymphocytes Percent Auto 29.8 % (20-40); Mean Corpuscular HGB Conc 33.2 g/dl (31.0-35.0); Mean Corpuscular Volume 84.4 fL (80.0-98.0); Mean Platelet Volume 9.8 fL (9.4-12.3); Monocytes Absolute Auto 0.4 X10*3/uL (0.1-1.2); Monocytes Percent Auto 7.7 % (2-11); Neutrophils Percent Auto 56.6 % (45-73); Platelet Count 270 X10*3/uL (160-400); Red Blood Count 4.86 X10*6/uL (4.20-5.50); Red Cell Distribution Width 13.6 % (11.0-16.0); White Blood Count 5.3 X10*3/uL (4.8-10.8)
[2024-11-06 11:49] LABS: Estimated Average Glucose 111 mg/dL; Hemoglobin A1c % 5.5 % (<6.0); Total Hemoglobin (HGBA1C) 3540.4676 umol/L
[2024-11-06 12:02] LABS: Magnesium 2.3 mg/dL (1.6-2.6)
[2024-11-06 12:11] LABS: TSH reflex Free T4 0.05 uIU/mL (0.32-4.0)
[2024-11-06 12:14] LABS: Erythrocyte Sedimentation Rate 36 MM/HR (0-20)
[2024-11-06 12:26] LABS: Rheumatoid Factor < 13.0 IU/mL (<15.0)
[2024-11-06 12:42] LABS: Folate 8.8 ng/mL (> or = 4.0); Vitamin B12 342 pg/mL (200-900)
[2024-11-06 14:04] LABS: Free T4 (Free Thyroxine) 1.12 ng/dL (0.71-1.85)
[2024-11-07 21:19] LABS: Lyme Abs Screen <0.90 index
[2024-11-12 11:33] LABS: Anti Nuclear Antibody Pattern Nuclear, Speckled; Anti Nuclear Antibody Screen POSITIVE (NEGATIVE); Anti Nuclear Antibody Titer 1:40 titer
== END 2024-11-06 09:31 | disposition home or self-care (01) ==
LOC: HO.WFDLDS 09:30
PROVIDERS: Visit Provider Physician Assistant
DX: R73.01 Impaired fasting glucose (principal); M25.552 Pain in left hip; M79.605 Pain in left leg; M54.50 Low back pain, unspecified; M54.9 Dorsalgia, unspecified; M25.512 Pain in left shoulder; J34.89 Other specified disorders of nose and nasal sinuses; J32.9 Chronic sinusitis, unspecified; E04.2 Nontoxic multinodular goiter
CPT/HCPCS: 36415; 82607; 82746; 83036; 83735; 84439; 84443; 85025; 85652; 86038; 86039; 86431; 86617; 86618

== ENCOUNTER 2024-11-12 14:38 | Outpatient (REF) | payer OTHER, SELFPAY ==
--- NOTE | ~2024-11-12 | XR_ITS ---
EXAMINATION: XR LUMBAR SPINE 2-3 VIEWS HISTORY: M54.50 - Low back pain, unspecified COMPARISON: There are no prior studies for comparison. FINDINGS: AP, lateral, and coned down views of the lumbar spine are submitted. Osseous mineralization is normal. Five nonrib-bearing lumbar vertebral bodies are identified, maintaining normal height without evidence of fracture or spondylolisthesis. There is slight straightening of the normal lumbar lordosis. The intervertebral disc spaces are preserved. The posterior elements are intact. The visualized paraspinal soft tissues are unremarkable. XR/XR lumbar spine 2-3V IMPRESSION: Slight straightening of the normal lumbar lordosis. Otherwise unremarkable examination of the lumbar spine. Electronically signed by: Tom Paz MD 11/13/2024 08:22 AM EDT
--- NOTE | ~2024-11-12 | XR_ITS ---
EXAMINATION: XR THORACIC SPINE 2 VIEWS HISTORY: M54.6 - Pain in thoracic spine COMPARISON: There are no prior studies available for comparison. FINDINGS: AP and lateral views of the thoracic spine are submitted. Osseous mineralization is normal. The vertebral bodies maintain normal height and alignment without evidence of fracture or subluxation. The intervertebral disc spaces are preserved. The visualized paraspinal soft tissues are unremarkable. XR/XR thoracic spine 2V IMPRESSION: Unremarkable examination of the thoracic spine. Electronically signed by: Tom Paz MD 11/13/2024 08:17 AM EDT
--- NOTE | ~2024-11-12 | XR_ITS ---
EXAMINATION: XR SHOULDER 2 OR MORE VIEWS LEFT HISTORY: M25.512 - Pain in left shoulder COMPARISON: There are no prior studies available for comparison. FINDINGS: Three views of the left shoulder are submitted. Osseous mineralization is normal. There is no fracture or dislocation. The glenohumeral and acromioclavicular joint spaces are preserved. The soft tissues are unremarkable. XR/XR shoulder LT min 2V IMPRESSION: Unremarkable examination of the left shoulder. Electronically signed by: Tom Paz MD 11/13/2024 08:15 AM EDT
--- NOTE | ~2024-11-12 | XR_ITS ---
EXAMINATION: XR CERVICAL SPINE 2-3 VIEWS HISTORY: M54.2 - Cervicalgia COMPARISON: There are no prior studies available for comparison. FINDINGS: AP and lateral views of the cervical spine are submitted. Osseous mineralization is normal. Seven cervical vertebral bodies are identified maintaining normal height and alignment without evidence of fracture or subluxation. The intervertebral disc spaces are preserved. There is no prevertebral soft tissue swelling. XR/XR cervical spine 2V IMPRESSION: Unremarkable examination of the cervical spine. Electronically signed by: Tom Paz MD 11/13/2024 08:21 AM EDT
--- NOTE | ~2024-11-12 | XR_ITS ---
EXAMINATION: XR HIP 2 OR MORE VIEWS BILATERAL HISTORY: M25.551 - Pain in right hip COMPARISON: There are no prior studies available for comparison. FINDINGS: Two views of each hip are submitted. Osseous mineralization is normal. There is no fracture or dislocation. The joint space is maintained. The soft tissues are unremarkable. XR/XR hips ALEJANDRA min 3V IMPRESSION: Unremarkable examination of the bilateral hips. Electronically signed by: Tom Paz MD 11/13/2024 08:25 AM EDT
== END 2024-11-12 14:39 | disposition home or self-care (01) ==
LOC: HO.HMGCX 14:38
PROVIDERS: PCP Physician Assistant; Visit Provider Physician Assistant
DX: M54.2 Cervicalgia (principal); E04.2 Nontoxic multinodular goiter; J32.9 Chronic sinusitis, unspecified; J34.89 Other specified disorders of nose and nasal sinuses; M25.512 Pain in left shoulder; M54.9 Dorsalgia, unspecified; M54.50 Low back pain, unspecified; M79.605 Pain in left leg; M25.552 Pain in left hip; M25.551 Pain in right hip
CPT/HCPCS: 72040; 72070; 72100; 73030; 73522

== ENCOUNTER → 2024-11-12 14:41 | Outpatient (BNV) | payer OTHER, SELFPAY | PROVIDERS: PCP Physician Assistant; Visit Provider Radiology Diagnostic Radiology | DX: M25.551 Pain in right hip (principal); M40.56 Lordosis, unspecified, lumbar region; M54.2 Cervicalgia; M54.6 Pain in thoracic spine; M25.512 Pain in left shoulder | CPT/HCPCS: 72040; 72070; 72100; 73030; 73522 ==

== ENCOUNTER 2024-11-13 13:15 | Outpatient (REF) | payer OTHER, SELFPAY ==
--- NOTE | ~2024-11-13 | MM_ITS ---
EXAMINATION: DXA BONE DENSITY AXIAL HISTORY: Z13.820 - Encounter for screening for osteoporosis TECHNIQUE: [employer] Dual energy absorptiometry (DEXA) of the lumbar spine, total left hip, and femoral neck was performed. COMPARISON: There are no prior studies for comparison. FINDINGS: The bone mineral density of the lumbar spine is 0.855, corresponding to a T-score of -2.7, and a Z-score of -3.1. This is indicative of osteoporosis. The bone mineral density of the left total hip is 0.893, corresponding to a T-score of -0.9, and a Z-score of -1.0. This is indicative of normal bone mineral density. The bone mineral density of the left femoral neck is 0.830, corresponding to a T-score of -1.5, and a Z-score of -1.2. This is indicative of osteopenia. MM/XR DEXA axial skeleton IMPRESSION: Based on bone mineral density, and according to World Health Organization (WHO) criteria, the diagnosis is consistent with osteoporosis. All bone density values are in grams per centimeter squared (g/cm2). Statistically, 68% of repeat scans fall within 1 SD (+/- 0.010 g/cm2 for AP spine L1-L4) and 1 SD (+/- 0.012 g/cm2 for femur total) FRAX is a trademark of the [employer]'s [place] [facility] Metabolic [employer] Disease, a World Health Organization (WHO) Collaborating Center. Electronically signed by: Tom Paz MD 11/13/2024 03:32 PM EDT
--- NOTE | ~2024-11-13 | US_ITS ---
EXAMINATION: US THYROID HISTORY: E04.2 - Nontoxic multinodular goiter TECHNIQUE: Real-time grayscale ultrasound imaging was performed and images were reviewed. COMPARISON: There are no prior studies available for comparison. FINDINGS: SIZE: The right thyroid lobe measures 5.2 x 2.0 x 2.1 cm. The left thyroid lobe measures 5.4 x 1.5 x 1.6 cm. The isthmus measures 3 mm. FLOW: Flow to the gland is normal. ECHOGENICITY: The echotexture of the gland is homogeneous. NODULES: Multiple bilateral nodules are identified. The largest nodules are described below: Nodule #: 1 Location: Right upper pole measuring 1.9 x 1.2 x 1.5 cm. Shape: Wider than tall (0 points) Margins: Smooth (0 points) Echotexture: Indeterminate (1 point) Composition: Mixed (1 point) Calcifications: None (0 points) Total points: 2 TIRADS: TR2: Not suspicious Nodule #: 2 Location: Midportion of the right thyroid lobe measuring 2.4 x 1.3 x 1.6 cm. Shape: Wider than tall (0 points) Margins: Smooth (0 points) Echotexture: Indeterminate (1 point) Composition: Mixed (1 point) Calcifications: None (0 points) Total points: 2 TIRADS: TR2: Not suspicious Nodule #: 3 Location: Lower pole of the right thyroid lobe measuring 1.2 x 0.6 x 1.0 cm. Shape: Wider than tall (0 points) Margins: Smooth (0 points) Echotexture: Indeterminate (1 point) Composition: Mixed (1 point) Calcifications: None (0 points) Total points: 2 TIRADS: TR2: Not suspicious Nodule #: 4 Location: Upper pole of the left thyroid lobe measuring 0.7 x 0.6 x 0.8 cm. Shape: Wider than tall (0 points) Margins: Smooth (0 points) Echotexture: Hypoechoic (2 points) Composition: Mostly solid (2 points) Calcifications: None (0 points) Total points: 4 TIRADS: TR4: Moderately suspicious. Nodule #: 5 Location: Midportion of the left thyroid lobe measuring 2.2 x 0.7 x 1.7 cm. Shape: Wider than tall (0 points) Margins: Smooth (0 points) Echotexture: Hypoechoic (2 points) Composition: Solid (2 points) Calcifications: None (0 points) Total points: 4 TIRADS: TR4: Moderately suspicious. US/US thyroid IMPRESSION: Multinodular thyroid gland. According to ACR TI-RADS guidelines below, fine-needle aspiration of the moderately suspicious nodule in the midportion of the left thyroid lobe (nodule #5 above) is recommended. ACR TI-RADS Guidelines TR1 (0 points): Benign, No follow-up or biopsy required TR2 (2 points): Not Suspicious, No biopsy or follow up indicated TR3 (3 points): Mildly Suspicious, FNA if >= 2.5 cm, Follow if >= 1.5 cm TR4 (4-6 points): Moderately Suspicious, FNA if >= 1.5 cm, Follow if >= 1.0 cm TR5 (>=7 points): Highly Suspicious, FNA if >= 1.0 cm, Follow if >= 0.5 cm Electronically signed by: Tom Paz MD 11/13/2024 02:09 PM EDT
--- OUTSIDE RECORDS SUMMARY | 2024-11-13 14:56 | XMS_ITS | Encounter Summary ---
Author Organization [facility] Address [address] [place] [address] Care Team Providers Care Corrosion Technician Name Role Phone Vickie Sutton MD Primary Care Provider [phone] Encounter Details Date Type Department Care Team [...] Description 12/19/2024 9:00 AM EDT Office Visit [facility] Hematology Oncology [address] [place] [phone] Marlena Mayberry DO [address] [place] [address] 01/13/2025 11:00 AM EDT Appointment [facility] Endoscopy [address] [place] [phone] Emigdio De La Garza DO [address] [address] documented as of this encounter Visit Diagnoses Not on filedocumented in this encounter Care Teams Corrosion Technician Relationship Specialty Start Date End Date Vickie Sutton MD PCP - General 09/08/23 07/17/24 documented as of this encounter
== END 2024-11-13 13:16 | disposition home or self-care (01) ==
LOC: HO.US 13:15
PROVIDERS: PCP Physician Assistant; Visit Provider Physician Assistant
DX: E04.2 Nontoxic multinodular goiter (principal); Z13.820 Encounter for screening for osteoporosis; Z78.0 Asymptomatic menopausal state
CPT/HCPCS: 76536; 77080

== ENCOUNTER → 2024-11-13 13:18 | Outpatient (BNV) | payer OTHER, SELFPAY | PROVIDERS: PCP Physician Assistant; Visit Provider Radiology Diagnostic Radiology | DX: E28.39 Other primary ovarian failure (principal); E04.2 Nontoxic multinodular goiter | CPT/HCPCS: 76536; 77080 ==

== ENCOUNTER 2024-11-26 14:47 | Outpatient (REF) | payer OTHER, SELFPAY ==
--- OUTSIDE RECORDS SUMMARY | 2024-03-28 13:24 | XMS_ITS | Encounter Summary ---
Author Organization [facility] Address [address] [place] [address] Care Team Providers Care Finisher Machine Name Role Phone Vickie Sutton MD Primary Care Provider [phone] Encounter Details Date Type Department Care Team [...] Description 12/19/2024 9:00 AM EDT Office Visit [facility] Hematology Oncology [address] [place] [phone] Marlena Mayberry DO [address] [place] [address] 01/13/2025 11:00 AM EDT Appointment [facility] Endoscopy [address] [place] [phone] Emgidio De La Garza DO [address] [address] documented as of this encounter Visit Diagnoses Not on filedocumented in this encounter Care Teams Finisher Machine Relationship Specialty Start Date End Date Vickie Sutton MD PCP - General 09/08/23 07/17/24 documented as of this encounter
[2024-11-26 19:15] LABS: Parathyroid Hormone Intact 68.5 pg/mL (8.7-77.1)
[2024-11-26 19:22] LABS: TSH reflex Free T4 0.11 uIU/mL (0.32-4.0)
[2024-11-29 15:23] LABS: Calcium, Ionized 5.5 mg/dL (4.7-5.5)
== END 2024-11-26 14:48 | disposition home or self-care (01) ==
LOC: HO.WFDLDS 14:47
PROVIDERS: Physician Assistant; Visit Provider Internal Medicine
DX: E05.90 Thyrotoxicosis, unspecified without thyrotoxic crisis or storm (principal); M81.0 Age-related osteoporosis without current pathological fracture
CPT/HCPCS: 36415; 82330; 83970; 84439; 84443

== ENCOUNTER 2024-11-28 16:19 | Outpatient (REF) | payer OTHER, SELFPAY ==
--- OUTSIDE RECORDS SUMMARY | 2024-03-28 13:24 | XMS_ITS | Encounter Summary ---
Author Organization [facility] Address [address] [place] [address] Care Team Providers Care Wax Ball Molder Name Role Phone Vickie Sutton MD Primary Care Provider [phone] Encounter Details Date Type Department Care Team (Late st Contact Info) Description 03/28/2024 1:24 PM EDT Hospital Encounter TH HISTORIC ENCOUNTERS EASTERN CONVERSION ONLY Social History Tobacco Use Types Packs/Day Years Used Date Smoking Tobacco: Never Assessed Comments Unknown Sex and Gender Information Value Date Recorded [...] Care Team (Late st Contact Info) Description 12/19/2024 9:00 AM EDT Office Visit [facility] Hematology Oncology [address] [place] [address] Marlena Mayberry DO [address] [place] [address] 01/13/2025 11:00 AM EDT Appointment [facility] Endoscopy [address] [place] [phone] Emigdio De La Garza DO [address] [address] documented as of this encounter Visit Diagnoses Not on filedocumented in this encounter Care Teams Wax Ball Molder Relationship Specialty Start Date End Date Vickie Sutton MD PCP - General 09/08/23 07/17/24 documented as of this encounter
--- NOTE | ~2024-11-28 | CT_ITS ---
CLINICAL HISTORY: E04.2 - Nontoxic multinodular goiter CT sinuses without contrast Comparison: None provided Findings: There is mild mucosal thickening in right frontal sinus and minimal mucosal thickening in left frontal sinus. Mucosal thickening in bilateral ethmoid air cells and in right maxillary sinus. Minimal mucosal thickening in right sphenoid sinus. Mucous retention cyst/polyp in left maxillary sinus. Mild right nasal septum deviation with left-sided stanley bullosa. Mastoid air cells and middle ears are clear bilaterally. No acute fracture. The orbits are normal. Visualized soft tissues demonstrate no significant abnormality. IMPRESSION: Sinus inflammatory disease as described. This document has been electronically signed by: Caitlin Mast MD on 11/29/2024 18:24:25
== END 2024-11-28 16:20 | disposition home or self-care (01) ==
LOC: HO.CT 16:19
PROVIDERS: PCP Physician Assistant; Visit Provider Physician Assistant
DX: J32.9 Chronic sinusitis, unspecified (principal); J34.89 Other specified disorders of nose and nasal sinuses; E04.2 Nontoxic multinodular goiter
CPT/HCPCS: 70486

== ENCOUNTER → 2024-11-28 16:21 | Outpatient (BNV) | payer OTHER, SELFPAY | PROVIDERS: PCP Physician Assistant; Visit Provider Specialist | DX: J32.2 Chronic ethmoidal sinusitis (principal) | CPT/HCPCS: 70486 ==

== ENCOUNTER 2024-12-02 06:00 | Outpatient (REF) | payer OTHER, SELFPAY ==
--- OUTSIDE RECORDS SUMMARY | 2024-03-28 13:24 | XMS_ITS | Encounter Summary ---
Author Organization [facility] Address [address] [place] [address] Care Team Providers Care Security System Sales Consultant Name Role Phone Vickie Sutton MD Primary Care Provider [phone] Encounter Details Date Type Department Care Team [...] Description 12/19/2024 9:00 AM EDT Office Visit [facility] Hematology Oncology [address] [place] [phone] Marlena Mayberry DO [address] [place] [address] 01/13/2025 11:00 AM EDT Appointment [facility] Endoscopy [address] [place] [phone] Emigdio De La Garza DO [address] [address] documented as of this encounter Visit Diagnoses Not on filedocumented in this encounter Care Teams Security System Sales Consultant Relationship Specialty Start Date End Date Vickie Sutton MD PCP - General 09/08/23 07/17/24 documented as of this encounter
[2024-12-05 20:13] LABS: Calcium, 24 Hr Urine 177 mg/24 h; Calcium/Creatinine Ratio 147 mg/g creat (30-275); Creatinine 24Hr Urine 1.21 g/24 h (0.50-2.15)
== END 2024-12-02 06:01 | disposition home or self-care (01) ==
LOC: HO.HMGCLNP 06:00
PROVIDERS: PCP Physician Assistant; Visit Provider Physician Assistant
DX: E05.90 Thyrotoxicosis, unspecified without thyrotoxic crisis or storm (principal); M81.0 Age-related osteoporosis without current pathological fracture
CPT/HCPCS: 82340

== ENCOUNTER 2024-12-16 07:32 | Outpatient (AMB) | payer OTHER, SELFPAY ==
--- NOTE | 2024-12-16 07:36 | MHC.OFFVIS ---
Vital Signs 12/16/24 07:37 Height 5 ft 5 in Weight 186 lb 15.232 oz BMI 31.1 BP 110/72 Blood Pressure Location Lt brachial Position Sitting Intake Visit Reasons: NMG/Age-related osteoporosis Intake Note: Patient present today for NMG/Age-related osteoporosis office visit. 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 Accompanied by: Self / Same As Patient Allergies No Known Allergies Allergy (Verified 12/16/24 07:44) Medication List - Last Reconciled 12/16/24 by Elba Fleming MD azelastine 2 sprays intranasal ONCE hydrochlorothiazide 25 mg PO DAILY levocetirizine (Xyzal) 5 mg PO QPM mupirocin calcium 2% 1 appl topical TID 10 days HPI Comments Details: 48-year-old female here today for initial evaluation of multinodular goiter and osteoporosis in the setting of status post 5 years of Goserelin therapy (stopped therapy September 2024) for right breast cancer diagnosed 2019 status post lumpectomy and radiation. Multinodular goiter Has known about thyroid nodules since early 30s Saw someone at [facility] [facility] , not sure what was the plan . Says she had several biopsy 2 done at [facility] and one done at [facility], in her 30s and 40s, with benign results per patient we dont have records of these. Also has history of autoimmune thyroid disease, thinks she had hypothyroidism growing up ? was on levothyroxine for some years then taken off of it Ultrasound thyroid 11/13/24: I reviewed the images myself which showed a homogeneous gland with normal vascularity, with multiple bilateral nodules with a right superior 1.9 cm mixed cystic solid hypoechoic TR 3 nodule, a right mid 2.4 cm mixed cystic solid hypoechoic TR 3 nodule, a right inferior 1.2 cm mixed cystic solid hypoechoic TR 3 nodule. Left superior 0.8 cm solid hypoechoic TR 4 nodule. Left mid lobe 2.2 cm solid hypoechoic TR 4 nodule. Labs November 2024 show subclinical hyperthyroidism 11/06/24 TSH 0.05 low free t4 1.12 11/26/24 TSH 0.11 low free 1 Patient currently denies hair loss,changes in appearance of eyes or vision changes, tremors, increased diaphoresis or dry skin. ? Some intermittent palpitations. Hot flashes, post menopausal since 46 years or so, when she started goserelin therapy for breast cancer. does get loose stools. Weight stable. Low energy . Tirdness. Mood stable. no tremors. Patient denies any difficulty swallowing, pain on swallowing or voice changes or difficulty breathing. Feels more enlarged than before. history of right breast cancer s/p lumpectomy, radiation, and then was on tamoxifen for a year and a half sometime around 2018, 2019, then break for 6 months, then goserelin monthly shots for 3 years or so from 2021 to September 2024, now done with therapy Denies having ever used lithium, amiodarone or biotin supplements. Patient denies any family history of thyroid cancer . Maternal GF: thyroidectomy, not sure why Osteoporosis Bone density scan 11/13/2024 showed osteoporosis of the lumbar spine with a T-score of-2.7, Z-score of-3.1. Showed normal bone density of the left total hip with a T-score of-0.9, Z-score of -1. Showed osteopenia of the left femoral neck with a T-score of-1.5, Z-score of-1.2. Post menopausal osteoporosis: Diagnosed in November 2024 Fracture History: toe fracture as a kid, metatarsal middle school fell on some rocks Height loss: 5 5' Back pain: some intermittent back pain Pharmacotherapeutic hx: none Drug holiday none Family history: mother and maternal GM, no parent fractured hip Estrogen use:was on OCPs in her20s to early 30s Menstrual hx: menarche: 11 years , 1, 1 live , regular periods during reproductive years, postmenopausal since age 46 after started on goserelin therapy Secondary risk factors: Steroid use: None Hyperthyroidism: yes? 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 , 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 Smoking history: smoked in her 20s for 10 years , then quit Dental: Has regular dental cleaning, no issues history of right breast cancer s/p lumpectomy, radiation, and then was on tamoxifen for a year and a half sometime around 2018, 2019, then break for 6 months, then goserelin monthly shots for 3 years or so from 2021 to September 2024, now done with therapy Physical exam General: sitting comfortably in no acute distress HEENT: normocephalic/atraumatic, Neck: supple, palpable 2 cm left-sided nodule, palpable 1-2 cm right-sided nodule Cardiac: normal heart sounds Pulm: normal breath sounds B/L, no added breath sounds Abd: not distended, no tenderness Extremities: no edema, no signs of myxedema, no tremors Neuro: AAO x3, Speech: normal, no facial droop, moving all 4 extremities Laboratory Tests 10/01/24 11/06/24 11/26/24 07:37 09:34 14:51 Creatinine 0.75 Estimated GFR > 60 Calcium 9.7 Ionized Calcium 5.5 Albumin 4.4 25-OH Vitamin D Total 52.2 TSH 0.35 0.05 L 0.11 L Free T4 1.12 1.00 PTH Intact 68.5 Ur Calcium 24 Hr Calcium/Creat 24 Hr 12/02/24 06:00 Creatinine Estimated GFR Calcium Ionized Calcium Albumin 25-OH Vitamin D Total TSH Free T4 PTH Intact Ur Calcium 24 Hr 177 Calcium/Creat 24 Hr 147 EXAMINATION: US THYROID 11/13/24 HISTORY: E04.2 - Nontoxic multinodular goiter TECHNIQUE: Real-time grayscale ultrasound imaging was performed and images were reviewed. COMPARISON: There are no prior studies available for comparison. FINDINGS: SIZE: The right thyroid lobe measures 5.2 x 2.0 x 2.1 cm. The left thyroid lobe measures 5.4 x 1.5 x 1.6 cm. The isthmus measures 3 mm. FLOW: Flow to the gland is normal. ECHOGENICITY: The echotexture of the gland is homogeneous. NODULES: Multiple bilateral nodules are identified. The largest nodules are described below: Nodule #: 1 Location: Right upper pole measuring 1.9 x 1.2 x 1.5 cm. Shape: Wider than tall (0 points) Margins: Smooth (0 points) Echotexture: Indeterminate (1 point) Composition: Mixed (1 point) Calcifications: None (0 points) Total points: 2 TIRADS: TR2: Not suspicious Nodule #: 2 Location: Midportion of the right thyroid lobe measuring 2.4 x 1.3 x 1.6 cm. Shape: Wider than tall (0 points) Margins: Smooth (0 points) Echotexture: Indeterminate (1 point) Composition: Mixed (1 point) Calcifications: None (0 points) Total points: 2 TIRADS: TR2: Not suspicious Nodule #: 3 Location: Lower pole of the right thyroid lobe measuring 1.2 x 0.6 x 1.0 cm. Shape: Wider than tall (0 points) Margins: Smooth (0 points) Echotexture: Indeterminate (1 point) Composition: Mixed (1 point) Calcifications: None (0 points) Total points: 2 TIRADS: TR2: Not suspicious Nodule #: 4 Location: Upper pole of the left thyroid lobe measuring 0.7 x 0.6 x 0.8 cm. Shape: Wider than tall (0 points) Margins: Smooth (0 points) Echotexture: Hypoechoic (2 points) Composition: Mostly solid (2 points) Calcifications: None (0 points) Total points: 4 TIRADS: TR4: Moderately suspicious. Nodule #: 5 Location: Midportion of the left thyroid lobe measuring 2.2 x 0.7 x 1.7 cm. Shape: Wider than tall (0 points) Margins: Smooth (0 points) Echotexture: Hypoechoic (2 points) Composition: Solid (2 points) Calcifications: None (0 points) Total points: 4 TIRADS: TR4: Moderately suspicious. US/US thyroid IMPRESSION: Multinodular thyroid gland. According to ACR TI-RADS guidelines below, fine-needle aspiration of the moderately suspicious nodule in the midportion of the left thyroid lobe (nodule #5 above) is recommended. EXAMINATION: DXA BONE DENSITY AXIAL 11/13/24 HISTORY: Z13.820 - Encounter for screening for osteoporosis TECHNIQUE: Etubics Dual energy absorptiometry (DEXA) of the lumbar spine, total left hip, and femoral neck was performed. COMPARISON: There are no prior studies for comparison. FINDINGS: The bone mineral density of the lumbar spine is 0.855, corresponding to a T-score of -2.7, and a Z-score of -3.1. This is indicative of osteoporosis. The bone mineral density of the left total hip is 0.893, corresponding to a T-score of -0.9, and a Z-score of -1.0. This is indicative of normal bone mineral density. The bone mineral density of the left femoral neck is 0.830, corresponding to a T-score of -1.5, and a Z-score of -1.2. This is indicative of osteopenia. MM/XR DEXA axial skeleton IMPRESSION: Based on bone mineral density, and according to World Health Organization (WHO) criteria, the diagnosis is consistent with osteoporosis. All bone density values are in grams per centimeter squared (g/cm2). Statistically, 68% of repeat scans fall within 1 SD (+/- 0.010 g/cm2 for AP spine L1-L4) and 1 SD (+/- 0.012 g/cm2 for femur total) FRAX is a trademark of the [employer] [place] for Metabolic Bone Disease, a World Health Organization (WHO) Collaborating Center. Electronically signed by: Tom Paz MD 11/13/2024 03:32 PM EDT RP [facility] Medical History (Updated 12/16/24 @ 08:48 by Elba Fleming MD) Subclinical hyperthyroidism Obesity, Class I, BMI 30-34.9 Multinodular goiter Hyperthyroidism HTN (hypertension) Melanoma Fatigue Breast cancer, right Family History Other FH: mental illness Substance use Social History (Updated 10/10/24 @ 15:45 by Marie Harrison CMA) Housing: House Alcohol intake: current Patient Tobacco Use Status: Former Tobacco user Years Smoked: 10 e-Cigarette/Vaping Use: Never Used Second Hand Smoke Exposure: No service: No Current occupational status: employed 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 Current occupational exposures/hazards: No Cognitive needs: No Hearing needs: No Vision needs: No Physical Exam Vital Signs: Last Vital Signs BP 110/72 12/16/24 07:37 BMI result Body Mass Index 31.1 Assessment & Plan Assessment & Plan (1) Multinodular goiter: Code(s): E04.2 - Nontoxic multinodular goiter Category: Medical Plan: 48-year-old female with past medical history significant for right breast cancer diagnosed 2019 status post lumpectomy and radiation status post 5 years of hormone therapy with a about 3 years of goserelin therapy included in that stopped September 2024, with no family history of thyroid cancer, coming in today for multinodular goiter and subclinical hyperthyroidism. She has had thyroid nodules since she was in her 30s, has had multiple biopsies before, not sure which ones, we do not have records of these today, however results were benign per patient. Per patient she was also on levothyroxine remotely for some years when she was diagnosed with autoimmune thyroid disease. Most recently blood work from November 2024 showed TSH was low 11/06/2024 at 0.05 with normal free T4 of 1.12. Labs repeated 11/26/2024 showed TSH was low again at 0.11, free T4 normal at 1. We will try to obtain her biopsy records. At this point given subclinical hyperthyroidism, I am going to do her antibodies to see if she has a underlying autoimmune thyroid disease. We will also order an uptake and scan as that we will give us a better idea of whether she has hot or cold nodules. This would help make decisions for which nodules need biopsy. She does have diagnosis of osteoporosis diagnosed in November 2024. That might make us consider treatment for her subclinical hyperthyroidism. For now we will repeat labs. Plan: -ordered TSH, free T4, total T3, TSH receptor, TPO and TSI antibodies -ordered thyroid uptake and scan -follow up in 5-6 weeks to discuss results -obtain prior thyroid ultrasound in biopsy records from [facility] (2) Subclinical hyperthyroidism: Code(s): E05.90 - Thyrotoxicosis, unspecified without thyrotoxic crisis or storm Category: Medical Plan: See above (3) Osteoporosis: Code(s): M81.0 - Age-related osteoporosis without current pathological fracture Category: Medical Qualifiers: Osteoporosis type: localized Presence of current pathological fracture: without current pathological fracture Qualified Code(s): M81.6 - Localized osteoporosis [[place]] Plan: 48-year-old female with a history of right breast cancer status post lumpectomy and radiation in 2019 status post tamoxifen for 1-1/2 years, status post goserilin therapy for 3 years ended September 2024, who follows with Dr. Hung at [facility] for the breast cancer, who is coming in today to establish care for osteoporosis as well. Diagnosed on bone density in November 2024 which showed osteoporosis of the lumbar spine with a T-score of-2.7, Z-score of-3.1. Showed normal bone density of the left total hip with a T-score of-0.9, Z-score of -1. Showed osteopenia of the left femoral neck with a T-score of-1.5, Z-score of-1.2. Prior to that she had a bone density in December 2023 which was done at [facility], which showed stable bone density of the spine and hip compared to bone density in January of 2023. It does not state exact T-scores are Z scores, however does state osteopenia of the spine and hip. She has been maintained on vitamin-D and calcium supplements. No therapy for osteoporosis. Her risk factors for osteoporosis include antiestrogen therapy, subclinical hyperthyroidism, family history of osteoporosis, possibly poor nutritional intake of calcium. Blood work from September 2024 showed normal kidney function with a GFR greater than 60, calcium of 9.7 with albumin of 4.4, corrected calcium would be 9.3, vitamin-D normal of 52.2, blood work repeated 11/26/2024 showed ionized calcium normal at 5.5, normal PTH of 68.5, 12/02/2024 24 hour urine calcium was normal at 177. I will order workup to complete secondary workup for osteoporosis including bone resorption markers. We will recheck her vitamin-D levels since it has been at least 3 months. She does not know exact doses of her supplements, I have asked her to bring these to next visit. One secondary workup was completed, I do think she might be a good candidate for medication for osteoporosis especially given osteoporosis in the spine. Fortunately she has not had any fractures. We might consider giving her Reclast infusion. We will discuss therapy at next visit 1 secondary workup is complete. Plan: -continue vitamin-D and calcium supplements, bring supplement bottles to next visit -advised to at least take 1000 units of vitamin-D daily -advised to at least incorporate 1000 mg of calcium in supplement/diet -advised 30 minutes of walking 5 days a week -complete secondary workup for osteoporosis plus do bone resorption markers -follow up in 5-6 weeks to discuss results Plan I spent 60 minutes in reviewing the record, seeing the patient and documenting in the medical record. Orders: Orders Thyroid Stimulating Hormone Today E04.2 - Nontoxic multinodular goiter, E05.90 - Thyrotoxicosis, unspecified without thyrotoxic crisis or storm Triiodothyronine T3 Total Today E04.2 - Nontoxic multinodular goiter, E05.90 - Thyrotoxicosis, unspecified without thyrotoxic crisis or storm Thyroid Peroxidase Antibodies Today E04.2 - Nontoxic multinodular goiter, E05.90 - Thyrotoxicosis, unspecified without thyrotoxic crisis or storm Thyrotropin Receptor Antibody Today E04.2 - Nontoxic multinodular goiter, E05.90 - Thyrotoxicosis, unspecified without thyrotoxic crisis or storm NM thyroid w uptake Today E04.2 - Nontoxic multinodular goiter, E05.90 - Thyrotoxicosis, unspecified without thyrotoxic crisis or storm Albumin Level Today M81.0 - Age-related osteoporosis without current pathological fracture Phosphorus Today M81.0 - Age-related osteoporosis without current pathological fracture Creatinine Today M81.0 - Age-related osteoporosis without current pathological fracture Immunofixation Pnl, Serum Today M81.0 - Age-related osteoporosis without current pathological fracture Free T4 (Free Thyroxine) Today E04.2 - Nontoxic multinodular goiter, E05.90 - Thyrotoxicosis, unspecified without thyrotoxic crisis or storm Thyroid Stimulating Immunoglob Today E04.2 - Nontoxic multinodular goiter, E05.90 - Thyrotoxicosis, unspecified without thyrotoxic crisis or storm Calcium Today M81.0 - Age-related osteoporosis without current pathological fracture Alkaline Phosphatase Bone Today M81.0 - Age-related osteoporosis without current pathological fracture Collagen Type I C-Telopeptide Today M81.0 - Age-related osteoporosis without current pathological fracture Magnesium Today M81.0 - Age-related osteoporosis without current pathological fracture Vitamin D 25-OH Total Today M81.0 - Age-related osteoporosis without current pathological fracture Protein Electrophoresis, Serum Today M81.0 - Age-related osteoporosis without current pathological fracture Patient Instructions: Do fasting blood work Do thyroid scan, someone will call you to schedule this Continue vitamin D and calcium supplements, please bring all supplement bottles next time Walk 30 mins 5 days a week Follow up in 5-6 weeks If you find your thyroid US and biopsy reports , please print and bring over to next appointment Coding Level of Care Code New Pt Level 5 (10324) Diagnoses Multinodular goiter E04.2 Subclinical hyperthyroidism E05.90 Localized osteoporosis without current pathological fracture M81.6 Osteoporosis type: localized Presence of current pathological fracture: without current pathological fracture Time Spent (min) 60
[2024-12-16 07:37] VITALS: BP 110/72; BMI 31.1
== END 2024-12-16 08:35 | disposition home or self-care (01) ==
LOC: HO.ENCR 07:33
PROVIDERS: PCP Physician Assistant; Visit Provider Student in an Organized Health Care Education/Training Program
DX: E04.2 Nontoxic multinodular goiter (principal); E05.90 Thyrotoxicosis, unspecified without thyrotoxic crisis or storm; M81.6 Localized osteoporosis [Lequesne]
CPT/HCPCS: 99205

== ENCOUNTER 2024-12-16 09:12 | Outpatient (REF) | payer OTHER, SELFPAY ==
--- OUTSIDE RECORDS SUMMARY | 2024-03-28 13:24 | XMS_ITS | Encounter Summary ---
Author Organization [facility] Address [address] [place] [address] Care Team Providers Care Astro Technician Name Role Phone Vickie Sutton MD Primary Care Provider Encounter Details Date Type Department Care Team [...] Description 12/19/2024 9:00 AM EDT Office Visit [facility] Hematology Oncology [address] [place] [phone] Marlena Mayberry DO [address] [place] [address] 01/13/2025 11:00 AM EDT Appointment [facility] Endoscopy [address] [place] [phone] Emigdio De La Garza DO [address] [address] 01/23/2025 1:00 PM EDT Appointment [facility] Bone Density [address] [place] [phone] documented as of this encounter Visit Diagnoses Not on filedocumented in this encounter Care Teams Astro Technician Relationship Specialty Start Date End Date Vickie Sutton MD PCP - General 09/08/23 07/17/24 documented as of this encounter
--- OUTSIDE RECORDS SUMMARY | 2024-12-16 09:30 | XMS_ITS ---
Author Organization [facility] Address [address] [place] [address] Care Team Providers Care Mattress Stripper Name Role Phone Vickie Sutton MD Primary Care Provider [phone] Active Problems Problem Noted Date Diagnosed Date Malignant neoplasm of upper- outer quadrant of right breast in female, estrogen receptor positive 10/29/2019 Current Oncology Plans [facility] GOSERELIN 3.6MG (ZOLADEX)* Plan Start Date:09/14/2023 Plan Provider:Marlena Mayberry DO Linked Problems Malignant neoplasm of upper- outer quadrant of right breast in female, estrogen receptor positive (HCC) Treatment Medications goserelin (ZOLADEX) Past Plans ONCOLOGY INFUSION THERAPY Plan Name Start Date Discontinue Date Treatment Medications Discontinue Reason Plan Provider [facility] GOSERELIN 3.6MG (ZOLADEX) 10/06/2022 09/14/2023 goserelin (ZOLADEX) Entered in error Mralena Mayberry DO [facility] GOSERELIN 3.6MG (ZOLADEX) 11/04/2021 10/06/2022 goserelin (ZOLADEX) Entered in error Antonino Das MD Radiation Treatments * No radiation treatments are documented for this patient in [facility]. Treatments may have been administered in another system.
--- OUTSIDE RECORDS SUMMARY | 2024-12-16 09:30 | XMS_ITS | Continuity of Care Document ---
Author Organization [facility] [address] [place] [address] Phone [phone] Care Team Providers Care Chute Man Name Role Phone Kenzi. PETTY Rosales Care Team Information Heater Helper [phone] Problems Active Problems Provider Date Carcinoma of breast Anil Mathias M.D. Onset: 07/26/2022 Seasonal allergy Anil Mathias M.D. Onset: Obese class I Anil Mathias M.D. Onset: H/O Malignant melanoma Anil Mathias M.D. Ons et: 07/26/2022 Personal history of primary malignant neoplasm of breast Anil Mathias M.D. Onset: 07/26/2022 Multinodular goiter Anil Mathias M.D. Onset: 07/26/2022 Social History Type Date Description Comments Sex Female Sex Unknown Tobacco Use Start: Unknown Never [...]
[2024-12-16 12:27] LABS: Albumin Level 4.6 g/dL (3.5-5.0); Calcium 9.6 mg/dL (8.4-10.2); Estimated Glomerular Filt Rate > 60; Free T4 (Free Thyroxine) 0.98 ng/dL (0.71-1.85); Magnesium 2.2 mg/dL (1.6-2.6); Thyroid Stimulating Hormone 0.13 uIU/mL (0.32-4.0)
[2024-12-19 21:53] LABS: Prot Elec - Albumin 4.2 g/dL (3.8-4.8); Prot Elec - Alpha1 0.4 g/dL (0.2-0.3); Prot Elec - Alpha2 0.8 g/dL (0.5-0.9); Prot Elec - Beta 1 0.5 g/dL (0.4-0.6); Prot Elec - Beta 2 0.3 g/dL (0.2-0.5); Prot Elec - Gamma 0.8 g/dL (0.8-1.7); Prot Elec - Total Protein 6.9 g/dL (6.1-8.1)
[2024-12-19 22:29] LABS: Collagen Type I C-Telopeptide 400 pg/mL (50-465)
== END 2024-12-16 09:13 | disposition home or self-care (01) ==
LOC: HO.WFDLDS 09:12
PROVIDERS: Visit Provider Student in an Organized Health Care Education/Training Program
DX: M81.0 Age-related osteoporosis without current pathological fracture (principal); E04.2 Nontoxic multinodular goiter; E05.90 Thyrotoxicosis, unspecified without thyrotoxic crisis or storm
CPT/HCPCS: 36415; 82040; 82306; 82310; 82523; 82565; 82784; 83520; 83735; 84075; 84100; 84165; 84439; 84443; 84445; 84480; 86334; 86376

== ENCOUNTER → 2025-01-23 09:22 | Outpatient (REF) | payer OTHER, SELFPAY ==
--- OUTSIDE RECORDS SUMMARY | 2021-12-30 15:25 | XMS_ITS | Encounter Summary ---
Author Organization [facility] Address [address] [place] [address] Care Team Providers Care Identity Access Management Architect Name Role Phone Jillian Rosales Primary Care Provider [phone] Encounter Details Date Type Department Care Team [...] Description 12/15/2025 9:00 AM EDT Office Visit [facility] Hematology Oncology [address] [place] [address] Marlena Mayberry DO [address] [place] [address] documented as of this encounter Visit Diagnoses Not on filedocumented in this encounter Care Teams Identity Access Management Architect Relationship Specialty Start Date End Date Jillian Rosales PA PCP - General Physician Pediatric Care Coordinator 09/30/21 09/07/23 documented as of this encounter
--- NOTE | ~2025-01-23 | NM_ITS ---
EXAMINATION: [place] THYROID IMAGING AND UPTAKE CLINICAL INFORMATION: E05.90 - Thyrotoxicosis, unspecified without thyrotoxic crisis or storm COMPARISON: Correlation is made with a thyroid ultrasound dated 11/13/2024. TECHNIQUE: Following the oral administration of 297 microcuries of I-123 sodium iodide, thyroid uptake was performed and expressed as a percentage of the administrated dose. Gamma scintillation camera images of the thyroid in the anterior and right and left anterior oblique views were obtained using a pinhole collimator following the administration of 10 mCi Tc-99m pertechnetate. FINDINGS: The thyroid gland demonstrates a multilobulated contour with multiple areas of decreased uptake in both thyroid lobes corresponding to multiple nodules noted on ultrasound. The uptake is 10.79% at 4 hours and 28.33% at 24 hours. WV/WV thyroid w uptake IMPRESSION: 1. Multilobulated thyroid contour with multiple areas of decreased uptake corresponding to nodule seen on ultrasound. 2. Normal 4-hour and 24-hour uptake. Electronically signed by: Tom Paz MD 01/27/2025 07:24 AM EDT
--- OUTSIDE RECORDS SUMMARY | 2025-01-23 10:29 | XMS_ITS ---
Author Name [facility] Organization Unknown Care Team Organization Name Specialty Phone Email Start Date End Da te [facility] Bambi Guzman MD Primary Care 04/12/2022 01/22/2024
--- OUTSIDE RECORDS SUMMARY | 2025-01-23 10:29 | XMS_ITS ---
Author Organization [facility] Address [address] [place] [address] Care Team Providers Care Fire Eater Name Role Phone Vickie Sutton MD Primary Care Provider [phone] Active Problems Problem Noted Date Diagnosed Date Malignant neoplasm of upper- outer quadrant of right breast in female, estrogen receptor positive 10/29/2019 Current Oncology Plans [facility] GOSERELIN 3.6MG (ZOLADEX)* Plan Start Date:09/14/2023 Plan Provider:Marlena Mayberry DO Linked Problems Malignant neoplasm of upper- outer quadrant of right breast in female, estrogen receptor positive (HCC) Treatment Medications goserelin (ZOLADEX) Past Plans ONCOLOGY INFUSION THERAPY Plan Name Start Date Discontinue Date Treatment Medications Discontinue Reason Plan Provider [facility] GOSERELIN 3.6MG (ZOLADEX) 10/06/2022 09/14/2023 goserelin (ZOLADEX) Entered in error Marlena Mayberry DO [facility] BCN GOSERELIN 3.6MG (ZOLADEX) 11/04/2021 10/06/2022 goserelin (ZOLADEX) Entered in error Antonino Das MD Radiation Treatments * No radiation treatments are documented for this patient in [facility]. Treatments may have been administered in another system.
--- OUTSIDE RECORDS SUMMARY | 2025-01-23 10:29 | XMS_ITS | Clinical Summary ---
Author Organization [facility] Address [address] [address] Phone Care Team Providers Care Commission Auditor Name Role Phone Jillian Rosales Primary Care Provider [phone] Social History Tobacco Use Types Packs/Day Years Used Date Smoking Tobacco: Never Assessed Education Answer Date Recorded Are you interested in more education? Not on albert e 07/25/2023 Are you concerned about learning? Not on file 07/25/2023 No 07/25/2023 No 07/25/2023 Digital Access Answer Date Recorded No 07/25/2023 No 07/25/2023 Reliable internet access at home? Not on file 07/25/2023 Device with a working camera? Not on file Comments Unknown Sex and Gender Information Value Date Recorded Sex Assigned at Not on file Legal Sex Female 3:54 PM EST Gender Identity Not on file Sexual Orientation Not on file Plan of Treatment Health Maintenance Due Date Last Done Comments Adult Td,Tdap Booster 1976 LIPID PANEL 1976 DEPRESSION SCREENING 1988 SMOKING Hx and SMOKELESS TOB ACCO SCREENING 1989 HEPATITIS C SCREENING 1994 HIV ONE-TIME SCREENING (18-6 5 YEARS) 1994 PAP SMEAR 1997 MAMMOGRAM 2016 COLOGUARD 2021 COLONOSCOPY 2021 COLORECTAL CANCER SCREENING 2021 FIT TEST 2021 FOBT 2021 SIGMOIDOSCOPY 2021 VIRTUAL COLONOSCOPY 2021 COVID-19 VACCINE (2023-2 5 season) 2024 HEPATITIS A VACCINES Aged Out No long er eligible based on patient's age to complete this topic HIB VACCINES Aged Out No longer eligi ble based on patient's age to complete this topic MENINGOCOCCAL VACCINES (ACWY) Aged Out No longer eligible based on patient's age to complete this topic MENINGOCOCCAL VACCINES (B) Aged Out N o longer eligible based on patient's age to complete this topic PNEUMOCOCCAL VACCINES (0-49 years) Aged Out No longer eligible based on patient's age to complete this topic Medical Devices Not on file Insurance [address]MO [address] [place] [address] [facility] [place] [address] HMO Care Teams Commission Auditor Relationship Specialty Start Date End Date Jillian Rosales PA PCP - General Physician Framing Mill Operator 04/25/23 Additional Source Comments The information contained in this document represents components of the legal health record. It is not the complete legal health record.[facility]
--- OUTSIDE RECORDS SUMMARY | 2025-01-23 10:29 | XMS_ITS | Continuity of Care Document ---
Author Organization [facility] [address] [place] [address] Phone [phone] Care Team Providers Care Neuro Intensivist Physician Name Role Phone Kenzi. PETTY Rosales Care Team Information Hair Clipper Power [phone] Problems Active Problems Provider Date Carcinoma of [...]
== END ==
LOC: HO.NUCMED 09:22
PROVIDERS: PCP Physician Assistant; Visit Provider Student in an Organized Health Care Education/Training Program
DX: E05.90 Thyrotoxicosis, unspecified without thyrotoxic crisis or storm (principal); E04.2 Nontoxic multinodular goiter
CPT/HCPCS: 78014; A9512; A9516

== ENCOUNTER → 2025-01-23 09:24 | Outpatient (BNV) | payer OTHER, SELFPAY | PROVIDERS: PCP Physician Assistant; Visit Provider Radiology Diagnostic Radiology | DX: E05.90 Thyrotoxicosis, unspecified without thyrotoxic crisis or storm (principal); R91.1 Solitary pulmonary nodule | CPT/HCPCS: 78014 ==

== ENCOUNTER 2025-01-29 14:45 | Outpatient (AMB) | payer OTHER, SELFPAY ==
--- OUTSIDE RECORDS SUMMARY | 2021-12-30 15:25 | XMS_ITS | Encounter Summary ---
Author Organization [facility] Address [address] [place] [address] Care Team Providers Care Stage Rigger Name Role Phone Jillian Rosales Primary Care Provider [phone] Encounter Details Date Type Department Care Team [...] Description 12/15/2025 9:00 AM EDT Office Visit [facility] Hematology Oncology [address] [place] [address] Marlena Mayberry DO [address] [place] [address] documented as of this encounter Visit Diagnoses Not on filedocumented in this encounter Care Teams Stage Rigger Relationship Specialty Start Date End Date Jillian Rosales PA PCP - General Physician Gis Professor 09/30/21 09/07/23 documented as of this encounter
--- OUTSIDE RECORDS SUMMARY | 2024-03-28 13:24 | XMS_ITS | Encounter Summary ---
Author Organization [facility] Address [address] [place] [address] Care Team Providers Care Parcel Carrier Name Role Phone Vickie Sutton MD Primary Care Provider [phone] Encounter Details Date Type Department Care Team [...] Description 12/15/2025 9:00 AM EDT Office Visit [facility] Hematology Oncology [address] [place] [address] Marlena Mayberry, DO [address] [place] [address] documented as of this encounter Visit Diagnoses Not on filedocumented in this encounter Care Teams Parcel Carrier Relationship Specialty Start Date End Date Vickie Sutton MD PCP - General 09/08/23 07/17/24 documented as of this encounter
[2025-01-29 14:51] VITALS: BP 118/74; PULSE 109; O2SAT 97; BMI 30.9
--- NOTE | 2025-01-29 14:51 | MHC.OFFVIS ---
Vital Signs 01/29/25 14:51 Height 5 ft 5 in Weight 185 lb 13.595 oz BMI 30.9 BP 118/74 Blood Pressure Location Lt brachial Position Sitting Pulse 109 H Pulse Source Pulse Oximeter Pulse Oximetry (%) 97 Oxygen Delivery Method Room Air Intake Visit Reasons: NMG/Age-related osteoporosis Intake Note: Patient present today for NMG and Age-related osteoporosis office visit. Healthcare Financial Analyst Required: No Accompanied by: Self / Same As Patient Allergies No Known Allergies Allergy (Verified 01/29/25 14:54) Medication List - Last Reconciled 01/29/25 by Elba Fleming MD azelastine 2 sprays intranasal ONCE hydrochlorothiazide 25 mg PO DAILY levocetirizine (Xyzal) 5 mg PO QPM mupirocin calcium 2% 1 appl topical TID 10 days HPI Comments Details: 48-year-old female here today for initial evaluation of multinodular goiter and osteoporosis in the setting of status post 5 years of Goserelin therapy (stopped therapy September 2024) for right breast cancer diagnosed 2019 status post lumpectomy and radiation. Multinodular goiter Has known about thyroid nodules since early 30s Saw someone at [facility] , not sure what was the plan . Says she had several biopsy 2 done at [facility] and one done at [facility], in her 30s and 40s, with benign results per patient we dont have records of these. Also has history of autoimmune thyroid disease, thinks she had hypothyroidism growing up ? was on levothyroxine for some years then taken off of it Ultrasound thyroid 11/13/24: I reviewed the images myself which showed a homogeneous gland with normal vascularity, with multiple bilateral nodules with a right superior 1.9 cm mixed cystic solid hypoechoic TR 3 nodule, a right mid 2.4 cm mixed cystic solid hypoechoic TR 3 nodule, a right inferior 1.2 cm mixed cystic solid hypoechoic TR 3 nodule. Left superior 0.8 cm solid hypoechoic TR 4 nodule. Left mid lobe 2.2 cm solid hypoechoic TR 4 nodule. Labs November 2024 show subclinical hyperthyroidism 11/06/24 TSH 0.05 low free t4 1.12 11/26/24 TSH 0.11 low free 1 Patient currently denies hair loss,changes in appearance of eyes or vision changes, tremors, increased diaphoresis or dry skin. ? Some intermittent palpitations. Hot flashes, post menopausal since 46 years or so, when she started goserelin therapy for breast cancer. does get loose stools. Weight stable. Low energy . Tirdness. Mood stable. no tremors. Patient denies any difficulty swallowing, pain on swallowing or voice changes or difficulty breathing. Feels more enlarged than before. history of right breast cancer s/p lumpectomy, radiation, and then was on tamoxifen for a year and a half sometime around 2018, 2019, then break for 6 months, then goserelin monthly shots for 3 years or so from 2021 to September 2024, now done with therapy Denies having ever used lithium, amiodarone or biotin supplements. Patient denies any family history of thyroid cancer . Maternal GF: thyroidectomy, not sure why Interval history Patient dropped in CD and paperwork on 12/25/2024. Ultrasound reviewed from [facility] done 07/02/2021: FNA biopsy performed off the Right lower pole mixed cystic solid 1.7 X 1 X1.6 cm nodule. 06/23/2021: Ultrasound of the thyroid done at [facility] which shows multiple bilateral nodules. Right lower pole 1.9 cm, left upper pole 1 cm and isthmus 1.7 cm nodules noted all without definite shadowing calculus or hypervascularity. 01/23/2025: Thyroid uptake and scan showed a heterogenous uptake with the overall normal uptake. Cold areas noted in the right superior, medial aspect of the right lower pole, left mid to lower pole. 12/16/2024: TSH 0.13, free T4 normal at 0.98, total T3 normal at 91, undetectable TSI, TSH receptor and TPO antibodies Osteoporosis Bone density scan 11/13/2024 showed osteoporosis of the lumbar spine with a T-score of-2.7, Z-score of-3.1. Showed normal bone density of the left total hip with a T-score of-0.9, Z-score of -1. Showed osteopenia of the left femoral neck with a T-score of-1.5, Z-score of-1.2. Post menopausal osteoporosis: Diagnosed in November 2024 Fracture History: toe fracture as a kid, metatarsal middle school fell on some rocks Height loss: 5 5' Back pain: some intermittent back pain Pharmacotherapeutic hx: none Drug holiday none Family history: mother and maternal GM, no parent fractured hip Estrogen use:was on OCPs in her20s to early 30s Menstrual hx: menarche: 11 years , 1, 1 live , regular periods during reproductive years, postmenopausal since age 46 after started on goserelin therapy Secondary risk factors: Steroid use: None Hyperthyroidism: yes? 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 Smoking history: smoked in her 20s for 10 years , then quit Dental: Has regular dental cleaning, no issues history of right breast cancer s/p lumpectomy, radiation, and then was on tamoxifen for a year and a half sometime around 2018, 2019, then break for 6 months, then goserelin monthly shots for 3 years or so from 2021 to September 2024, now done with therapy Interval history Secondary workup of osteoporosis unremarkable from December 2024, CTX 400, vitamin-D 53.4 Vitamin-D: 1000 units daily Calcium: 1200 mg daily in supplement Physical exam General: sitting comfortably in no acute distress HEENT: normocephalic/atraumatic, Neck: supple, palpable 2 cm left-sided nodule, palpable 1-2 cm right-sided nodule Cardiac: normal heart sounds Pulm: normal breath sounds B/L, no added breath sounds Abd: not distended, no tenderness Extremities: no edema, no signs of myxedema, no tremors Neuro: AAO x3, Speech: normal, no facial droop, moving all 4 extremities Laboratory Tests 10/01/24 11/06/24 11/26/24 07:37 09:34 14:51 Creatinine 0.75 Estimated GFR > 60 Calcium 9.7 Ionized Calcium 5.5 Albumin 4.4 25-OH Vitamin D Total 52.2 TSH 0.35 0.05 L 0.11 L Free T4 1.12 1.00 PTH Intact 68.5 Ur Calcium 24 Hr Calcium/Creat 24 Hr 12/02/24 06:00 Creatinine Estimated GFR Calcium Ionized Calcium Albumin 25-OH Vitamin D Total TSH Free T4 PTH Intact Ur Calcium 24 Hr 177 Calcium/Creat 24 Hr 147 Laboratory Tests 11/26/24 12/02/24 12/16/24 14:51 06:00 09:14 Creatinine 0.78 Estimated GFR > 60 Calcium 9.6 Phosphorus 3.1 Magnesium 2.2 Alk Phos Bone Specific 18.0 Total Protein (PEP) 6.9 Albumin 4.6 Collgn I C-Telopeptide 400 25-OH Vitamin D Total 53.4 TSH 0.11 L 0.13 L Free T4 1.00 0.98 Total T3 91 Thyroid Stim Immunoglob <89 PTH Intact 68.5 Ur Creatinine 24 Hour 1.21 Ur Calcium 24 Hr 177 Calcium/Creat 24 Hr 147 Thyroid Peroxidase Ab 1 TSH Receptor Ab <1.00 EXAMINATION: NM THYROID IMAGING AND UPTAKE 01/23/25 CLINICAL INFORMATION: E05.90 - Thyrotoxicosis, unspecified without thyrotoxic crisis or storm COMPARISON: Correlation is made with a thyroid ultrasound dated 11/13/2024. TECHNIQUE: Following the oral administration of 297 microcuries of I-123 sodium iodide, thyroid uptake was performed and expressed as a percentage of the administrated dose. Gamma scintillation camera images of the thyroid in the anterior and right and left anterior oblique views were obtained using a pinhole collimator following the administration of 10 mCi Tc-99m pertechnetate. FINDINGS: The thyroid gland demonstrates a multilobulated contour with multiple areas of decreased uptake in both thyroid lobes corresponding to multiple nodules noted on ultrasound. The uptake is 10.79% at 4 hours and 28.33% at 24 hours. NM/NM thyroid w uptake IMPRESSION: 1. Multilobulated thyroid contour with multiple areas of decreased uptake corresponding to nodule seen on ultrasound. Cold defects are seen at the upper pole of the right thyroid lobe and the medial aspect of the lower pole on the right. On the left there is a cold defect in the mid to lower pole region. These do not correlate well with the nodules noted on ultrasound. 2. Normal 4-hour and 24-hour uptake. Electronically signed by: Tom Paz MD 01/27/2025 07:24 AM EDT EXAMINATION: US THYROID 11/13/24 HISTORY: E04.2 - Nontoxic multinodular goiter TECHNIQUE: Real-time grayscale ultrasound imaging was performed and images were reviewed. COMPARISON: There are no prior studies available for comparison. FINDINGS: SIZE: The right thyroid lobe measures 5.2 x 2.0 x 2.1 cm. The left thyroid lobe measures 5.4 x 1.5 x 1.6 cm. The isthmus measures 3 mm. FLOW: Flow to the gland is normal. ECHOGENICITY: The echotexture of the gland is homogeneous. NODULES: Multiple bilateral nodules are identified. The largest nodules are described below: Nodule #: 1 Location: Right upper pole measuring 1.9 x 1.2 x 1.5 cm. Shape: Wider than tall (0 points) Margins: Smooth (0 points) Echotexture: Indeterminate (1 point) Composition: Mixed (1 point) Calcifications: None (0 points) Total points: 2 TIRADS: TR2: Not suspicious Nodule #: 2 Location: Midportion of the right thyroid lobe measuring 2.4 x 1.3 x 1.6 cm. Shape: Wider than tall (0 points) Margins: Smooth (0 points) Echotexture: Indeterminate (1 point) Composition: Mixed (1 point) Calcifications: None (0 points) Total points: 2 TIRADS: TR2: Not suspicious Nodule #: 3 Location: Lower pole of the right thyroid lobe measuring 1.2 x 0.6 x 1.0 cm. Shape: Wider than tall (0 points) Margins: Smooth (0 points) Echotexture: Indeterminate (1 point) Composition: Mixed (1 point) Calcifications: None (0 points) Total points: 2 TIRADS: TR2: Not suspicious Nodule #: 4 Location: Upper pole of the left thyroid lobe measuring 0.7 x 0.6 x 0.8 cm. Shape: Wider than tall (0 points) Margins: Smooth (0 points) Echotexture: Hypoechoic (2 points) Composition: Mostly solid (2 points) Calcifications: None (0 points) Total points: 4 TIRADS: TR4: Moderately suspicious. Nodule #: 5 Location: Midportion of the left thyroid lobe measuring 2.2 x 0.7 x 1.7 cm. Shape: Wider than tall (0 points) Margins: Smooth (0 points) Echotexture: Hypoechoic (2 points) Composition: Solid (2 points) Calcifications: None (0 points) Total points: 4 TIRADS: TR4: Moderately suspicious. US/US thyroid IMPRESSION: Multinodular thyroid gland. According to ACR TI-RADS guidelines below, fine-needle aspiration of the moderately suspicious nodule in the midportion of the left thyroid lobe (nodule #5 above) is recommended. EXAMINATION: DXA BONE DENSITY AXIAL 11/13/24 HISTORY: Z13.820 - Encounter for screening for osteoporosis TECHNIQUE: Fetchmob Dual energy absorptiometry (DEXA) of the lumbar spine, total left hip, and femoral neck was performed. COMPARISON: There are no prior studies for comparison. FINDINGS: The bone mineral density of the lumbar spine is 0.855, corresponding to a T-score of -2.7, and a Z-score of -3.1. This is indicative of osteoporosis. The bone mineral density of the left total hip is 0.893, corresponding to a T-score of -0.9, and a Z-score of -1.0. This is indicative of normal bone mineral density. The bone mineral density of the left femoral neck is 0.830, corresponding to a T-score of -1.5, and a Z-score of -1.2. This is indicative of osteopenia. MM/XR DEXA axial skeleton IMPRESSION: Based on bone mineral density, and according to World Health Organization (WHO) criteria, the diagnosis is consistent with osteoporosis. All bone density values are in grams per centimeter squared (g/cm2). Statistically, 68% of repeat scans fall within 1 SD (+/- 0.010 g/cm2 for AP spine L1-L4) and 1 SD (+/- 0.012 g/cm2 for femur total) FRAX is a trademark of the [employer]'s [place] for Metabolic Bone Disease, a World Health Organization (WHO) Collaborating Center. Electronically signed by: Tom Paz MD 11/13/2024 03:32 PM EDT RP FOR[facility]LY [facility], [facility] Medical History (Updated 12/16/24 @ 08:48 by Elba Fleming MD) Subclinical hyperthyroidism Obesity, Class I, BMI 30-34.9 Multinodular goiter Hyperthyroidism HTN (hypertension) Melanoma Fatigue Breast cancer, right Family History Other FH: mental illness Substance use Social History Housing: House Alcohol intake: current Patient Tobacco Use Status: Former Tobacco user Years Smoked: 10 e-Cigarette/Vaping Use: Never Used Second Hand Smoke Exposure: No service: No Current occupational status: employed 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 Current occupational exposures/hazards: No Cognitive needs: No Hearing needs: No Vision needs: No Physical Exam Vital Signs: Last Vital Signs Pulse 109 H 01/29/25 14:51 BP 118/74 01/29/25 14:51 Pulse Ox 97 01/29/25 14:51 Oxygen Delivery Method Room Air 01/29/25 14:51 BMI result Body Mass Index 30.9 Assessment & Plan Assessment & Plan (1) Multinodular goiter: Code(s): E04.2 - Nontoxic multinodular goiter Category: Medical Plan: 48-year-old female with past medical history significant for right breast cancer diagnosed 2019 status post lumpectomy and radiation status post 5 years of hormone therapy with a about 3 years of goserelin therapy included in that stopped September 2024, with no family history of thyroid cancer, coming in today for multinodular goiter and subclinical hyperthyroidism. She has had thyroid nodules since she was in her 30s, has had multiple biopsies before, not sure which ones, we do not have records of these today, however results were benign per patient. Per patient she was also on levothyroxine remotely for some years when she was diagnosed with autoimmune thyroid disease. blood work from November 2024 showed TSH was low 11/06/2024 at 0.05 with normal free T4 of 1.12. Labs repeated 11/26/2024 showed TSH was low again at 0.11, free T4 normal at 1. Ultrasound reviewed from [facility] done 07/02/2021: FNA biopsy performed off the Right lower pole mixed cystic solid 1.7 X 1 X1.6 cm nodule. 06/23/2021: Ultrasound of the thyroid done at [facility] which shows multiple bilateral nodules. Right lower pole 1.9 cm, left upper pole 1 cm and isthmus 1.7 cm nodules noted all without definite shadowing calculus or hypervascularity. 01/23/2025: Thyroid uptake and scan showed a heterogenous uptake with the overall normal uptake. Cold areas noted in the right superior, medial aspect of the right lower pole, left mid to lower pole. 12/16/2024: TSH 0.13, free T4 normal at 0.98, total T3 normal at 91, undetectable TSI, TSH receptor and TPO antibodies At this point her diagnosis is consistent with toxic nodules. Her TSH is greater than 0.1, she is young, no history of ischaemic heart disease however she does have osteoporosis. Underlying overactivity of the thyroid could be contributing to that so we could think about treatment. Briefly I spoke to her about possibly considering surgery in the future. She would not be a good candidate for radioactive iodine treatment given history of breast cancer. As far as her nodules are concern, the thyroid uptake and scan does not correlate very well with the ultrasound findings however her left midpole nodule measuring 2.2 cm TR 4 category, I do not have previous records of biopsy of this, and this meets criteria for FNA. Given thyroid uptake and scan also possibly points towards a cold area in the left mid to lower pole, we should consider biopsy of this. I explained that it is common to have thyroid nodules. About 95% of the time these nodules are benign. However if the nodule is > 1 cm in size or suspicious on ultrasound then a fine need aspiration biopsy is recommended. We discussed that a FNAB involves 4-5 passes with a small gauge needle and material obtained is sent off for cytology.If the cytopathology is benign then the nodule will be followed annually with repeat ultrasounds. However if it is suspicious or malignant, we will need to discuss further management. Indeterminate cytology can be further investigated with repeat FNA, genetic testing or empiric lobectomy. Malignant cytology is managed with either lobectomy or total thyroidectomy. We discussed briefly that thyroid cancer is, in most patients, an indolent disease that does not affect mortality. We will arrange for FNA of the left mid 2.2 cm thyroid nodule at next available opening and patient will follow up with me in clinic thereafter for results and further decision making. Plan: -scheduled for FNA of the left mid 2.2 cm thyroid nodule and follow up 2 weeks after to discuss results (2) Subclinical hyperthyroidism: Code(s): E05.90 - Thyrotoxicosis, unspecified without thyrotoxic crisis or storm Category: Medical Plan: See above (3) Osteoporosis: Code(s): M81.0 - Age-related osteoporosis without current pathological fracture Category: Medical Qualifiers: Osteoporosis type: localized Presence of current pathological fracture: without current pathological fracture Qualified Code(s): M81.6 - Localized osteoporosis [[place]] Plan: 48-year-old female with a history of right breast cancer status post lumpectomy and radiation in 2019 status post tamoxifen for 1-1/2 years, status post goserilin therapy for 3 years ended September 2024, who follows with Dr. Hung at [facility] for the breast cancer, who is coming in today to establish care for osteoporosis as well. Diagnosed on bone density in November 2024 which showed osteoporosis of the lumbar spine with a T-score of-2.7, Z-score of-3.1. Showed normal bone density of the left total hip with a T-score of-0.9, Z-score of -1. Showed osteopenia of the left femoral neck with a T-score of-1.5, Z-score of-1.2. Prior to that she had a bone density in December 2023 which was done at [facility], which showed stable bone density of the spine and hip compared to bone density in January of 2023. It does not state exact T-scores are Z scores, however does state osteopenia of the spine and hip. She has been maintained on vitamin-D and calcium supplements. No therapy for osteoporosis. Her risk factors for osteoporosis include antiestrogen therapy, subclinical hyperthyroidism, family history of osteoporosis, possibly poor nutritional intake of calcium. Blood work from September 2024 showed normal kidney function with a GFR greater than 60, calcium of 9.7 with albumin of 4.4, corrected calcium would be 9.3, vitamin-D normal of 52.2, blood work repeated 11/26/2024 showed ionized calcium normal at 5.5, normal PTH of 68.5, 12/02/2024 24 hour urine calcium was normal at 177. Secondary workup for osteoporosis from December 2024 was unremarkable. CTX at 400. Vitamin-D level of 53.4. She is currently taking 1000 units of vitamin-D and 1200 mg of calcium in supplement. I did tell her to split her calcium supplement to 600 mg b.i.d. for better absorption. I believe she is good candidate for medication for osteoporosis especially given osteoporosis in the spine. Fortunately she has not had any fractures. Given Z scores as low as-3.1, would consider giving her Reclast. We also discussed Fosamax however patient is apprehensive of taking Fosamax due to bad reaction in her mother. She does not have any history of acid reflux. She is up-to-date with dental workup no issues. We discussed modes of administration, common side effects, importance of hydration and Tylenol around the infusion, side effects of hypocalcemia, importance of continuing vitamin-D, side effects of muscle aches and pains, rare side effects of osteonecrosis of the jaw and atypical femur fracture. Plan: -continue vitamin-D and calcium supplements, -advised to at least take 1000 units of vitamin-D daily -advised to at least incorporate 1000 mg of calcium in supplement/diet -advised 30 minutes of walking 5 days a week -Reclast infusion ordered Plan I spent 45 minutes in reviewing the record, seeing the patient and documenting in the medical record. Orders: Orders US biopsy thyroid Today E04.2 - Nontoxic multinodular goiter Referrals Infusion Center Notification M81.6 - Localized osteoporosis [[place]] Patient Instructions: Reclast This is usually given as an IV infusion, once a year. Common side effects include fever, chills, flulike symptoms and muscle and joint aches and pains. This may happen up to 20% of the people. Other side effects may include low calcium level, especially if the vitamin D is low. Therefore do continue to take calcium and vitamin D as recommended by your doctor. We recommend that you are well-hydrated when you comes for the Reclast infusion. So please drink 16 ounces of water and do not take any diuretics on the day of the infusion. We also recommended to take 2 Tylenol before leaving home for the infusion. You may continue to take Tylenol every 6 hours as needed for the initial 1-2 days depending on the need. Please let us know should you have any side effects from reclast. We do recommend a regular dental follow-up for oral/dental health. Continue vitamin D and calcium supplement We are also booking you for a thyroid nodule biopsy for next week Coding Level of Care Code Est Pt Level 5 (21244) Diagnoses Multinodular goiter E04.2 Subclinical hyperthyroidism E05.90 Localized osteoporosis without current pathological fracture M81.6 Osteoporosis type: localized Presence of current pathological fracture: without current pathological fracture Time Spent (min) 45
--- OUTSIDE RECORDS SUMMARY | 2025-01-29 16:08 | XMS_ITS ---
Author Organization [facility] Address [address] [place] [address] Care Team Providers Care Flight Simulator Teacher Name Role Phone Vickie Sutton MD Primary Care Provider [phone] Active Problems Problem Noted Date Diagnosed Date Malignant neoplasm of upper- outer quadrant of right breast in female, estrogen receptor positive 10/29/2019 Current Oncology Plans [facility] GOSERELIN 3.6MG (ZOLADEX)* Plan Start Date:09/14/2023 Plan Provider:Marlena Mayberry DO Linked Problems Malignant neoplasm of upper- outer quadrant of right breast in female, estrogen receptor positive (HCC) Treatment Medications goserelin (ZOLADEX) Past Plans ONCOLOGY INFUSION THERAPY Plan Name Start Date Discontinue Date Treatment Medications Discontinue Reason Plan Provider [facility] GOSERELIN 3.6MG (ZOLADEX) 10/06/2022 09/14/2023 goserelin (ZOLADEX) Entered in error Marlena Mayberry DO [facility] GOSERELIN 3.6MG (ZOLADEX) 11/04/2021 10/06/2022 goserelin (ZOLADEX) Entered in error Antonino Das MD Radiation Treatments * No radiation treatments are documented for this patient in [facility]. Treatments may have been administered in another system.
--- OUTSIDE RECORDS SUMMARY | 2025-01-29 16:08 | XMS_ITS | Continuity of Care Document ---
Author Organization [facility] [address] [place] [address] Phone [phone] Care Team Providers Care Facility Engineer Name Role Phone Kenzi. PETTY Rosales Care Team Information Caramel Cutter Hand [phone] Problems Active Problems Provider Date Carcinoma of [...]
--- OUTSIDE RECORDS SUMMARY | 2025-01-29 16:08 | XMS_ITS | Clinical Summary ---
Author Organization [facility] Address [address] [address] Phone Care Team Providers Care Charge Coordinator Name Role Phone Jillian Rosales Primary Care Provider [phone] Social History Tobacco Use Types Packs/Day Years [...] Not on file Insurance HMO [address] [place], [place] [address] [address] HMO Care Teams Charge Coordinator Relationship Specialty Start Date End Date Jillian Rosales PA PCP - General Physician Coal Carrier 04/25/23 Additional Source Comments The information contained in this document represents components of the legal health record. It is not the complete legal health record.[facility]
--- OUTSIDE RECORDS SUMMARY | 2025-01-29 16:08 | XMS_ITS | Clinical Summary ---
Author Organization [facility] Address [address] [place] [phone] Phone Care Team Providers Care Quitline Counselor Name Role Phone Jillian Rosales Primary Care Provider Allergies No known active allergies Medications albuterol HFA (PROAIR HFA ; PROVENTIL HFA ; VENTOLIN HFA) 90 mcg/actuation inhaler Inhale 2 puffs by mouth every 6 hours as needed for wheezing. 05/20/20 19 Active hydroCHLOROthi azide 12.5 mg tablet Take 1 tablet (12.5 mg total) by mouth 1 (one) time each day. 03/22/20 23 Active calcium carbonate-ben min D 500 mg-5 mcg (200 unit) per tablet Take 1 tablet by mouth 1 (one) time each day. Active goserelin (Zoladex) 3.6 mg implant Inject 3.6 mg under the skin 1 (one) time. 025 Discontinued polyethylene glycol (Golytely) 236-22.74-6.74 -5.86 gram solution Take 4L by mouth once for one dose. May substitue any PEG. Starting at 6PM the night before your procedure drink 1 8oz glasses at your own pace until you complete half of the gallon. Finish 2nd half of the gallon 5 hours before your procedure. 4000 mL 10/02/19 25 025 Discontinued bisacodyL (DULCOLAX) 5 mg EC tablet Take 2 tablets by mouth right before beginning bowel prep. See instructions provided by the office 2 tablet 10/02/19 025 Discontinued Active Problems Problem Noted Date Diagnosed Date Malignant neoplasm of right female breast, unspecified estrogen receptor status, unspecified site of breast ([facility] V24, [facility] V28) 04/25/2024 Malignant neoplasm of female breast ([facility]24, [facility] V28) 04/15/2021 Encounters Date Type Department Care Team Description 01/13/2025 11:26 AM EDT Anesthesia Event [facility] [address] [place] [phone] Reinier Siddiqui MD 01/13/2025 10:08 AM EDT - 01/13/2025 11:59 PM EDT Hospital Encounter [facility] [address] [place] [phone] Alexander De La Garza DO Couture, Alison, CRNA Colon cancer screening Discharge Disposition: Home or Self Care 12/19/2024 9:00 AM EDT Office Visit [facility] H[facility]ology Oncology [address] [place] [address] Jena Gonzales DO Malignant neoplasm of right female breast, unspecified estrogen receptor status, unspecified site of breast ([facility] V24, [facility] V28) (Primary Dx) from Last 3 Months Immunizations Name Administration Dates Next Due Pfizer SARS-CoV-2 COVID-19, mRNA, LNP-S, preservative free 04/20/2021,03/30/2021 Surgical History Surgery Date Site/Laterality Comments BREAST LUMPECTOMY Right Medical History Medical History Date Comments Hypertension Asthma Breast cancer ([facility] V24, [facility] V28) Skin cancer Social History Tobacco Use Types Packs/Day Years Used Date Smoking Tobacco: Former Cigarettes Tobacco Cessation:Counseling Given: Not Answered Alcohol Use Standard Drinks/Week Comments Not Currently [...] Sign Reading Time Taken Comments Blood Pressure 116/74 01/13/2025 12:01 PM EDT Pulse 84 01/13/2025 12:01 PM EDT Temperature 36.7 C (98 F) 01/13/2025 11:41 AM EDT Respiratory Rate 16 01/13/2025 12:01 PM EDT Oxygen Saturation 97% 01/13/2025 12:01 PM EDT Inhaled Oxygen Concentration - - Weight 85.3 kg (188 lb) 12/19/2024 8:59 AM EDT Height 165.1 cm (5' 5 ) 12/19/2024 8:59 AM EDT Body Mass Index 31.28 12/19/2024 8:59 AM EDT Plan of Treatment Upcoming Encounters Date Type Department Care Team (Late st Contact Info) Description 12/15/2025 9:00 AM EDT Office Visit [facility] H[facility]ology Oncology [address] [place] [address] Jena Gonzales, [address] [place] [address] Health Maintenance Due Date Last Done Comments Breast Cancer Screening 1975 Hepatitis B Vaccines (1 of 3 - 19+ 3-dose series) 12/22/1995 Pneumococcal Vaccine: Pediatrics (0 to 5 Years) and At-Risk Patients (6 to 49 Years) (1 of 2 - PCV) 12/22/1995 Cervical Cancer Screening: P ap Smear 1997 COVID-19 Vaccine (3 - Pfizer risk series) 05/18/2021 04/20/2021, 03/30/2021 Cholesterol Screening (Lipid Panel) 05/12/2022 HIV Screening 05/12/2022 Hepatitis C Screening 05/12/2022 Social Influencers of Health Screening 05/12/2022 DTaP,Tdap,and Td Vaccines (2 - Td or Tdap) 2023 12/20/2013 Hypertension/CHF/CAD Annual BMP Blood Test 04/25/2024 Depression Screening 06/05/2024 Influenza Vaccine (#1) 2025 Colorectal Cancer Screening: Colonoscopy 01/14/2028 01/13/2025 Osteoporosis Screening (Bone Density Screening) 01/01/2039 01/02/2024, [...] Procedure Name Priority Date/Time Associated Diagnosis Comments COLONOSCOPY Routine 01/13/2025 11:40 AM EDT Colon cancer screening TISSUE EXAM Routine 01/13/2025 11:37 AM EDT Colon cancer screening CASSANDRA DEXA AXIAL SKELETON Routine 01/02/2024 7:39 AM EDT Other specified disorders of bone density and structure, other site from Last 3 Months or Most Recently Relevant to Health Maintenance Results * COLONOSCOPY Anesthesia - MAC; [facility] ENDOSCOPY (01/13/2025 11:40 AM EDT) Anatomical Region Laterality Modality Endoscopy 01/13/2025 10:5 5 AM EDT Impressions 01/13/2025 11:41 AM EDT - Hemorrhoids found on perianal exam. - One 10 mm polyp in the rectum, removed with a cold snare. Resected and retrieved. - The examination was otherwise normal on direct and retroflexion views. Recommendation: - Discharge patient to home. - High fiber diet. - Continue present medications. - Await pathology results. - Repeat colonoscopy for surveillance based on pathology results. Narrative 01/13/2025 11:41 AM EDT [facility] Patient Name: Chanell Thomas Procedure Date: 01/13/2025 10:55 AM Date of : 1975 Age: 49 Gender: Female Note Status: Finalized Attending MD: Alexander De La Garza DO, [id number] Procedure Date No Time: 01/13/2025 Procedure: Colonoscopy Indications: Screening for colorectal malignant neoplasm Providers: Alexander De La Garza DO Referring MD: Alexander De La Garza DO Medicines: Monitored Anesthesia Care Complications: No immediate complications. Estimated blood loss: Minimal. Estimated Blood Loss: Estimated blood loss was minimal. Procedure: Pre-Anesthesia Assessment: - - Prior to the procedure, a History and Physical was performed, and patient medications and allergies were reviewed. The patient is competent. The risks and benefits of the procedure and the sedation options and risks were discussed with the patient. All questions were answered and informed consent was obtained. Patient identification and proposed procedure were verified by the physician, the nurse, the anesthesiologist, the chemical operator and the environmental compliance technician in the pre-procedure area in the endoscopy suite. Mental Status Examination: alert and oriented. Airway Examination: normal oropharyngeal airway and neck mobility. Respiratory Examination: clear to auscultation. CV Examination: normal. Prophylactic Antibiotics: The patient does not require prophylactic antibiotics. Prior Anticoagulants: The patient has taken no anticoagulant or antiplatelet agents. ASA Grade Assessment: II - A patient with mild systemic disease. After reviewing the risks and benefits, the patient was deemed in satisfactory condition to undergo the procedure. The anesthesia plan was to use monitored anesthesia care (MAC). Immediately prior to administration of medications, the patient was re-assessed for adequacy to receive sedatives. The heart rate, respiratory rate, oxygen saturations, blood pressure, adequacy of pulmonary ventilation, and response to care were monitored throughout the procedure. The physical status of the patient was re-assessed after the procedure. After I obtained informed consent, the scope was passed under direct vision. Throughout the procedure, the patient's blood pressure, pulse, and oxygen saturations were monitored continuously.The Olympus Pediatric Colonoscope was introduced through the anus and advanced to the cecum, identified by appendiceal orifice and ileocecal valve. The colonoscopy was performed without difficulty. The patient tolerated the procedure well. The quality of the bowel preparation was good. The ileocecal valve, appendiceal orifice, and rectum were photographed. Findings: Hemorrhoids were found on perianal exam. A 10 mm polyp was found in the rectum. The polyp was sessile. The polyp was removed with a cold snare. Resection and retrieval were complete. Verification of patient identification for the specimen was done. Estimated blood loss was minimal. The exam was otherwise without abnormality on direct and retroflexion views. Procedure Code(s): --- Professional --- 47889, Colonoscopy, flexible; with removal of tumor(s), polyp(s), or other lesion(s) by snare technique Diagnosis Code(s): --- Professional --- Z12.11, Encounter for screening for malignant neoplasm of colon K64.9, Unspecified hemorrhoids D12.8, Benign neoplasm of rectum CPT copyright 2020 [employer]. All rights reserved. The codes documented in this report are preliminary and upon regional transportation manager review may be revised to meet current compliance requirements. ALEXANDER De La Garza DO 01/13/2025 11:40:44 AM This report has been signed electronically.Alexander De La Garza DO Number of Addenda: 0 Note Initiated On: 01/13/2025 10:55 AM Scope Withdrawal Time: 0 hours 6 minutes 15 seconds Scope In: 11:30:55 AM Scope Out: 11:39:12 AM Endoscopy Department at [facility] - [address] [place] [phone] Procedure Note Alexander De La Garza DO - 01/13/2025 [facility] GI Patient Name: Chanell Thomas Procedure Date: 01/13/2025 10:55 AM Date of : 1975 Age: 49 Gender: Female Note Status: Finalized Attending MD: Alexander De La Garza DO, [id number] Procedure Date No Time: 01/13/2025 Procedure: Colonoscopy Indications: Screening for colorectal malignant neoplasm Providers: Alexander De La Garza DO Referring MD: Alexander De La Garza DO Medicines: Monitored Anesthesia Care Complications: No immediate complications. Estimated blood loss: Minimal. Estimated Blood Loss: Estimated blood loss was minimal. Procedure: Pre-Anesthesia Assessment: - - Prior to the procedure, a History and Physicalwas performed, and patient medications and allergieswere reviewed. The patient is competent. The risks and benefits of the procedure and the sedation optionsand risks were discussed with the patient. Allquestions were answered and informed consent was obtained. Patient identification and proposed procedure were verified by the physician, the nurse, the anesthesiologist, the chemical operator and thetechnician in the pre-procedure area in the endoscopy suite. Mental Status Examination: alert and oriented.Airway Examination: normal oropharyngeal airway and neck mobility. Respiratory Examination: clear to auscultation. CV Examination: normal. Prophylactic Antibiotics: The patient does not requireprophylactic antibiotics. Prior Anticoagulants: The patient has taken no anticoagulant or antiplatelet agents. ASA Grade Assessment: II - A patient with mild systemic disease. After reviewing the risks and benefits,the patient was deemed in satisfactory condition to undergo the procedure. The anesthesia plan was touse monitored anesthesia care (MAC). Immediately priorto administration of medications, the patient was re-assessed for adequacy to receive sedatives. The heart rate, respiratory rate, oxygen saturations, blood pressure, adequacy of pulmonary ventilation,and response to care were monitored throughout the procedure. The physical status of the patient was re-assessed after the procedure. After I obtained informed consent, the scope was passed under direct vision. Throughout theprocedure, the patient's blood pressure, pulse, and oxygen saturations were monitored continuously.The Olympus Pediatric Colonoscope was introduced through theanus and advanced to the cecum, identified byappendiceal orifice and ileocecal valve. The colonoscopy was performed without difficulty. The patient tolerated the procedure well. The quality of the bowel preparation was good. The ileocecal valve,appendiceal orifice, and rectum were photographed. Findings: Hemorrhoids were found on perianal exam. A 10 mm polyp was found in the rectum. The polypwas sessile. The polyp was removed with a cold snare. Resection and retrieval were complete. Verificationof patient identification for the specimen was done. Estimated blood loss was minimal. The exam was otherwise without abnormality ondirect and retroflexion views. Procedure Code(s): --- Professional --- 96521, Colonoscopy, flexible; with removal of tumor(s), polyp(s), or other lesion(s) by snare technique Diagnosis Code(s): --- Professional --- Z12.11, Encounter for screening for malignantneoplasm of colon K64.9, Unspecified hemorrhoids D12.8, Benign neoplasm of rectum CPT copyright 2020 [employer]. All rights reserved. The codes documented in this report are preliminary and upon regional transportation manager reviewmay be revised to meet current compliance requirements. ALEXANDER De La Garza DO 01/13/2025 11:40:44 AM This report has been signed electronically.Alexander De La Garza DO Number of Addenda: 0 Note Initiated On: 01/13/2025 10:55 AM Scope Withdrawal Time: 0 hours 6 minutes 15 seconds Scope In: 11:30:55 AM Scope Out: 11:39:12 AM Endoscopy Department at [facility] - [address] [place] [phone] IMPRESSION: - Hemorrhoids found on perianal exam. - One 10 mm polyp in the rectum, removed with acold snare. Resected and retrieved. - The examination was otherwise normal on directand retroflexion views. Recommendation: - Discharge patient to home. - High fiber diet. - Continue present medications. - Await pathology results. - Repeat colonoscopy for surveillance based on pathology results. Alexander De La Garza DO GI~PROCEDURE ORDERABLES Final Re sult * Tissue exam (01/13/2025 11:37 AM EDT) Final Diagnosis Rectum, polyp: Tubular adenoma. 01/14/2025 12:00 PM EDT [facility] Gross Description A. Large Intestine, Rectum, polyp x1: Labeled LI rectum polyp x 1 . Received in formalin, are four irregular soft to rubbery, domínguez-pink, polypoid tissue fragments, approximately ranging from 0.2 cm to 0.85 cm in greatest diameters, inked green at the margin, which are wrapped in paper and submitted in toto in one cassette, four pieces, multiple levels. Please note: Small tissue fragments may not survive processing. hs/DG 01/14/2025 12:00 PM EDT [facility] Disclaimer Unless otherwise specified, all tissue is 10% NB formalin fixed and paraffin embedded. 01/14/2025 12:00 PM EDT [facility] Tissue Rectum structure / Unknown 01/13/2025 11:37 AM EDT 01/13/2025 1:52 PM EDT us Alexander De La Garza DO LAB PATHOLOGY ORDERABLES Final R esult [facility] [address] [place] [address], [place] [phone] * CASSANDRA DEXA AXIAL SKELETON (01/02/2024 7:39 AM EDT) Anatomical Region Laterality Modality Mammography 01/01/2024 1:24 PM EDT Narrative 01/02/2024 7:39 AM EDT [facility] Diagnostic Imaging Department [address] [place] [address] Patient: THOMASCHANELL Fan./Age/Sex: 1975 - 48 - F Unit#: [id number] Location/Status: [facility] Ordering Physician: JENA GONZALES [facility] Dexa Axial Skeleton - 01/01/24 - 9102 Report Status:Signed HISTORY: The patient is a 48-year-old postmenopausal female with clinical concern for metabolic bone disease. FINDINGS: Dual [...] 92% of that of age matched controls. This yields a T-score of -0.5 and a Z-score of -0.6 and there is therefore no evidence of osteoporosis or osteopenia here. However, the T-score of the right femoral neck is -1.3 and that of the left femoral neck is -1.2 which is diagnostic of osteopenia. IMPRESSION: 1. Osteopenia. There has been a decrease of 0.2% in bone mineral density in the lumbar spine since the prior examination of 01/05/2023. There has been a decrease of 0.4% in bone mineral density in the right femur and a decrease of 2.8% in bone mineral density in the left femur. 2. FRAX analysis yields a 10-year probability of major osteoporotic fracture of 6.4% and a 10-year probability of hip fracture of 0.5%. Code 65306 Dictating Physician: CAMILLA WEBB MD Electronically Signed by: CAMILLA WEBB MD Dic Date/Time: 01/02/24737 Sign date/Time: 01/02/24738 Procedure Note Camilla Webb MD - 03/20/2024 [facility] Diagnostic Imaging Department [address] [place], [place] [id number] Patient: CHANELL THOMAS /Age/Sex: 1975 - 48 - F Unit#: [id number] Location/Status: [facility] Mnemonic[facility] Ordering Physician: JENA GONZALES [facility] Dexa Axial [...] density of the femurs bilaterally is 0.948 gm/sr6ijvhq is 94% of that of young normals [...] probability of hip fracture of 0.5%. Code 64856 Dictating Physician: CAMILLA WEBB MD Electronically Signed by: CAMILLA WEBB MD Dic Date/Time: 01/02/2438 Sign date/Time: 01/02/24738 Jena Babita Gonzales DO IMG BI PROCEDURES Fin al Result from Last 3 Months or Most Recently Relevant to Health Maintenance Insurance [facility] Care Teams Quitline Counselor Relationship Specialty Start Date End Date Jillian Rosales PA [address] [place] [address] PCP - General Physician Colorist Formulator 01/13/25
--- OUTSIDE RECORDS SUMMARY | 2025-01-29 16:08 | XMS_ITS | Clinical Summary ---
Author Organization [facility] Address [address] [place] [address] Care Team Providers Care Retention Representative Name Role Phone Vickie Sutton MD Primary Care Provider [phone] Allergies No known active allergies Medications Medication [...] 90 03/28/2024 1:31 PM EDT Temperature 36.3 C (97.4 F) 03/28/2024 1:31 PM EDT Respiratory Rate 18 02/29/2024 1:40 PM EDT [...] or Tdap) 2023 12/20/2013 Influenza Vaccine (#1) 2025 RSV Ped < 20 months Aged Out No longe r eligible based on patient's age to complete this topic Care Teams Retention Representative Relationship Specialty Start Date End Date Vickie Sutton MD PCP - General Internal Medicine 09/08/23
--- OUTSIDE RECORDS SUMMARY | 2025-01-29 16:08 | XMS_ITS ---
Author Organization [facility] Address [address] [place] [address] Phone Care Team Providers Care Medical Technologist Chief Name Role Phone Jillian Rosales Primary Care Provider [phone] Active Problems Problem Noted Date Diagnosed Date Malignant neoplasm of right female breast, unspecified estrogen receptor status, unspecified site of breast ([facility] V24, [facility] V28) 04/25/2024 Malignant neoplasm of female breast ([facility] V24, [facility] V28) 04/15/2021 Current Oncology Plans GOSERELIN (ZOLADEX) 3.6 MG EVERY 4 WEEKS* Plan Start Date:04/25/2024 Plan Provider:Marlena Mayberry, Linked Problems Malignant neoplasm of female breast, unspecified estrogen receptor status, unspecified laterality, unspecified site of breast (CMS/HCC V24, [facility] V28)Malignant neoplasm of right female breast, unspecified estrogen receptor status, unspecified site of breast ([facility] V24, [facility] V28) Treatment Medications goserelin (ZOLADEX) Past Plans No past plan information found. Radiation Treatments * No radiation treatments are documented for this patient in [facility]. Treatments may have been administered in another system.
== END 2025-01-29 15:45 | disposition home or self-care (01) ==
LOC: HO.ENCR 14:46
PROVIDERS: PCP Physician Assistant; Visit Provider Student in an Organized Health Care Education/Training Program
DX: E04.2 Nontoxic multinodular goiter (principal); E05.90 Thyrotoxicosis, unspecified without thyrotoxic crisis or storm; M81.6 Localized osteoporosis [Lequesne]
CPT/HCPCS: 99215

== ENCOUNTER 2025-02-05 07:43 | Outpatient (REF) | payer OTHER, SELFPAY ==
--- OUTSIDE RECORDS SUMMARY | 2021-12-30 15:25 | XMS_ITS | Encounter Summary ---
Author Organization [facility] Address [address] [place] [address] Care Team Providers Care Cook Vacuum Kettle Name Role Phone Jillian Rosales Primary Care Provider [phone] Encounter Details Date Type Department Care Team (Late Contact Info) Description 12/30/2021 3:25 PM EDT Hospital Encounter TH HISTORIC ENCOUNTERS EASTERN CONVERSION ONLY Social History Tobacco Use Types Packs/Day Years Used Date Smoking Tobacco: Former Cigarettes Alcohol Use Standard Drinks/Week Comments Not Currently 0 (1 standard drink = 0.6 oz pur e alcohol) Interpersonal Safety Answer Date Record ed Physical Abuse 01/13/2025 Verbal Abuse 01/13/2025 Comments No Sex and Gender Information [...] Encounters Date Type Department Care Team (Late Contact Info) Description 12/15/2025 9:00 AM EDT Office Visit [facility] Hematology Oncology [address] [place] [address] Marlena Mayberry DO [address] [place] [address] documented as of this encounter Visit Diagnoses Not on filedocumented in this encounter Care Teams Cook Vacuum Kettle Relationship Specialty Start Date End Date Jillian Rosales PA PCP - General Physician Sourcing Assistant 09/30/21 09/07/23 documented as of this encounter
--- OUTSIDE RECORDS SUMMARY | 2024-03-28 13:24 | XMS_ITS | Encounter Summary ---
Author Organization [facility] Address [address] [place] [address] Care Team Providers Care Animal Feeder Name Role Phone Vickie Sutton MD Primary Care Provider [phone] Encounter Details Date Type Department Care Team [...] Description 12/15/2025 9:00 AM EDT Office Visit [facility] Hematology Oncology [address] [place] [address] Marlena Mayberry, DO [address] [place] [address] documented as of this encounter Visit Diagnoses Not on filedocumented in this encounter Care Teams Animal Feeder Relationship Specialty Start Date End Date Vickie Sutton MD PCP - General 09/08/23 07/17/24 documented as of this encounter
--- OUTSIDE RECORDS SUMMARY | 2025-02-05 07:48 | XMS_ITS | Clinical Summary ---
Author Organization [facility] Address [address] [address] Phone Care Team Providers Care Neuropsychology Service Director Name Role Phone Jillian Rosales Primary Care Provider [phone] Social History Tobacco Use Types Packs/Day Years [...] topic Medical Devices Not on file Insurance [address] [place], [place] [address]O [facility] [place] [address] [place] [address] HMO Care Teams Neuropsychology Service Director Relationship Specialty Start Date End Date Jillian Rosales PA PCP - General Physician Flying Squad Worker 04/25/23 Additional Source Comments The information contained in this document represents components of the legal health record. It is not the complete legal health record.[facility]
--- OUTSIDE RECORDS SUMMARY | 2025-02-05 07:48 | XMS_ITS ---
Author Organization [facility] Address [address] [place] [address] Phone Care Team Providers Care Director Correctional Agency Name Role Phone Jillian Rosales Primary Care Provider [phone] Active Problems Problem Noted Date Diagnosed Date Malignant neoplasm of right female breast, unspecified estrogen receptor status, unspecified site of breast ([facility] V24, [facility] V28) 04/25/2024 Malignant neoplasm of female breast ([facility] V24, [facility] V28) 04/15/2021 Current Oncology Plans GOSERELIN (ZOLADEX) 3.6 MG EVERY 4 WEEKS* Plan Start Date:04/25/2024 Plan Provider:Marlena Mayberry, Linked Problems Malignant neoplasm of female breast, unspecified estrogen receptor status, unspecified laterality, unspecified site of breast (CMS/HCC V24, [facility] V28)Malignant neoplasm of right female breast, unspecified estrogen receptor status, unspecified site of breast ([facility] V24, [facility] V28) Treatment Medications goserelin (ZOLADEX) Past Plans No past plan information found. Radiation Treatments * No radiation treatments are documented for this patient in [facility]. Treatments may have been administered in another system.
--- OUTSIDE RECORDS SUMMARY | 2025-02-05 07:48 | XMS_ITS ---
Author Organization [facility] Address [address] [place] [address] Care Team Providers Care Lithographing Machine Operator Name Role Phone Vickie Sutton MD Primary Care Provider [phone] Active Problems Problem Noted Date Diagnosed Date Malignant neoplasm of upper- outer quadrant of right breast in female, estrogen receptor positive 10/29/2019 Current Oncology Plans [facility] GOSERELIN 3.6MG (ZOLADEX)* Plan Start Date:09/14/2023 Plan Provider:Marlena Mayberry DO Linked Problems Malignant neoplasm of upper- outer quadrant of right breast in female, estrogen receptor positive (HCC) Treatment Medications goserelin (ZOLADEX) Past Plans ONCOLOGY INFUSION THERAPY Plan Name Start Date Discontinue Date Treatment Medications Discontinue Reason Plan Provider [facility] GOSERELIN 3.6MG (ZOLADEX) 10/06/2022 09/14/2023 goserelin (ZOLADEX) Entered in error Marlena Mayberry DO [facility] GOSERELIN 3.6MG (ZOLADEX) 11/04/2021 10/06/2022 goserelin (ZOLADEX) Entered in error Antonino Das MD Radiation Treatments * No radiation treatments are documented for this patient in [facility]. Treatments may have been administered in another system.
--- OUTSIDE RECORDS SUMMARY | 2025-02-05 07:48 | XMS_ITS | Clinical Summary ---
Author Organization [facility] Address [address] [place] [phone] Phone Care Team Providers Care Industrial Safety Engineer Name Role Phone Jillian Rosales Primary Care Provider [phone] Allergies No known active allergies Medications albuterol [...] estrogen receptor status, unspecified site of breast ([facility] V24, [facility] V28) 04/25/2024 Malignant neoplasm of female breast ([facility] V24, [facility] V28) 04/15/2021 Encounters Date Type Department Care Team Description 01/13/2025 11:26 AM EDT Anesthesia Event [facility] Endoscopy [address] [place] [id number] Reinier Siddiqui MD 01/13/2025 10:08 AM EDT - 01/13/2025 11:59 PM EDT Hospital Encounter [facility] Endoscopy [address] [place] [id number] Alexander De La Garza DO Couture, Alison, CRNA Colon cancer screening Discharge Disposition: Home or Self Care 12/19/2024 9:00 AM EDT Office Visit [facility] Hematology Oncology [address] [place] [address] Jena Gonzales DO Malignant neoplasm of right female breast, unspecified estrogen receptor status, unspecified site of breast ([facility] V24, [facility] V28) (Primary Dx) from Last 3 Months Immunizations Name Administration Dates Next Due Pfizer SARS-CoV-2 COVID-19, mRNA, LNP-S, preservative free 04/20/2021,03/30/2021 Surgical History Surgery Date Site/Laterality Comments BREAST LUMPECTOMY Right Medical History Medical History Date Comments Hypertension Asthma Breast cancer ([facility] V24, [facility] V28) Skin cancer Social History Tobacco Use [...] Description 12/15/2025 9:00 AM EDT Office Visit [facility] Hematology Oncology [address] [place] [address] Jena Gonzales, [address] [place] [address] Health Maintenance Due Date Last Done Comments [...] Maintenance Results * COLONOSCOPY Anesthesia - MAC; [facility] ENDOSCOPY (01/13/2025 11:40 AM EDT) Anatomical Region [...] pathology results. Narrative 01/13/2025 11:41 AM EDT [facility] GI Patient Name: Chanell Thomas Procedure Date: 01/13/2025 10:55 AM Date of : 1975 Age: 49 Gender: Female Note Status: Finalized Attending MD: Alexander De La Garza DO, [id number] Procedure Date No Time: 01/13/2025 Procedure: Colonoscopy [...] the physician, the nurse, the anesthesiologist, the administrative support specialist and the transportation technician in the pre-procedure area in the [...] retroflexion views. Procedure Code(s): --- Professional --- 60839, Colonoscopy, flexible; with removal of tumor(s), polyp(s), or other lesion(s) by snare technique Diagnosis Code(s): --- Professional --- Z12.11, Encounter for screening for malignant neoplasm of colon K64.9, Unspecified hemorrhoids D12.8, Benign neoplasm of rectum CPT copyright 2020 [employer]. All rights reserved. The codes documented in this report are preliminary and upon workplace relations adviser review may be revised to meet current compliance requirements. ALEXANDER De La Garza DO 01/13/2025 11:40:44 AM This report has been signed electronically.Alexander De La Garza DO Number of Addenda: 0 Note Initiated On: 01/13/2025 10:55 AM Scope Withdrawal Time: 0 hours 6 minutes 15 seconds Scope In: 11:30:55 AM Scope Out: 11:39:12 AM Endoscopy Department at [facility] - [address] [place] [id number] Procedure Note Alexander De La Garza DO - 01/13/2025 [facility] GI Patient Name: Chanell Thomas Procedure Date: 01/13/2025 10:55 AM Date of : 1975 Age: 49 Gender: Female Note Status: Finalized Attending MD: Alexander De La Garza DO, [id number] Procedure Date No Time: 01/13/2025 Procedure: Colonoscopy [...] the physician, the nurse, the anesthesiologist, the administrative support specialist and thetechnician in the pre-procedure area in [...] retroflexion views. Procedure Code(s): --- Professional --- 27197, Colonoscopy, flexible; with removal of tumor(s), polyp(s), or other lesion(s) by snare technique Diagnosis Code(s): --- Professional --- Z12.11, Encounter for screening for malignantneoplasm of colon K64.9, Unspecified hemorrhoids D12.8, Benign neoplasm of rectum CPT copyright 2020 [employer]. All rights reserved. The codes documented in this report are preliminary and upon workplace relations adviser reviewmay be revised to meet current compliance requirements. ALEXANDER De La Garza DO 01/13/2025 11:40:44 AM This report has been signed electronically.Alexander De La Garza DO Number of Addenda: 0 Note Initiated On: 01/13/2025 10:55 AM Scope Withdrawal Time: 0 hours 6 minutes 15 seconds Scope In: 11:30:55 AM Scope Out: 11:39:12 AM Endoscopy Department at [facility] - [address] [place] [phone] IMPRESSION: - Hemorrhoids found on perianal exam. [...] polyp: Tubular adenoma. 01/14/2025 12:00 PM EDT [facility] Gross Description A. Large Intestine, Rectum, [...] survive processing. hs/DG 01/14/2025 12:00 PM EDT [facility] Disclaimer Unless otherwise specified, all tissue is 10% NB formalin fixed and paraffin embedded. 01/14/2025 12:00 PM EDT [facility] Tissue Rectum structure / Unknown 01/13/2025 11:37 AM EDT 01/13/2025 1:52 PM EDT us Alexander De La Garza DO LAB PATHOLOGY ORDERABLES Final R esult [facility] [address] [place] [address], [place] [phone] * CASSANDRA DEXA AXIAL SKELETON (01/02/2024 7:39 AM EDT) Anatomical Region Laterality Modality Mammography 01/01/2024 1:24 PM EDT Narrative 01/02/2024 7:39 AM EDT [facility] Diagnostic Imaging Department [address] [place] [address] Patient: THOMASCHANELL Fan./Age/Sex: 1975 - 48 - F Unit#: [id number] Location/Status: [facility] Ordering Physician: JENA GONZALES [facility] Dexa Axial Skeleton - 01/01/24 - 0392 Report Status:Signed HISTORY: The patient is a [...] probability of hip fracture of 0.5%. Code 12329 Dictating Physician: CAMILLA WEBB MD Electronically Signed by: CAMILLA WEBB MD Dic Date/Time: 01/02/24737 Sign date/Time: 01/02/24738 Procedure Note Camilla Webb MD - 03/20/2024 [facility] Diagnostic Imaging Department [address] [place], [place] [id number] Patient: CHANELL THOMAS /Age/Sex: 1975 - 48 - F Unit#: [id number] Location/Status: [facility]/REG CLI Mnemonic[facility] Ordering Physician: JENA GONZALES [facility] Dexa Axial [...] density of the femurs bilaterally is 0.948 gm/qy4tgupy is 94% of that of young normals [...] probability of hip fracture of 0.5%. Code 50984 Dictating Physician: CAMILLA WEBB MD Electronically Signed by: CAMILLA WEBB MD Dic Date/Time: 01/02/2438 Sign date/Time: 01/02/24738 Jena Babita Gonzales DO IMG BI PROCEDURES Fin al Result from Last 3 Months or Most Recently Relevant to Health Maintenance Insurance [facility] Care Teams Industrial Safety Engineer Relationship Specialty Start Date End Date Jillian Rosales PA [address] [place] [address] PCP - General Physician Casing Worker 01/13/25
--- OUTSIDE RECORDS SUMMARY | 2025-02-05 07:48 | XMS_ITS | Clinical Summary ---
Author Organization [facility] Address [address] [place] [address] Care Team Providers Care Account Analyst Name Role Phone Vickie Sutton MD Primary Care Provider [phone] Allergies No known active allergies Medications Medication [...] age to complete this topic Care Teams Account Analyst Relationship Specialty Start Date End Date Vickie Sutton MD PCP - General Internal Medicine 09/08/23
--- OUTSIDE RECORDS SUMMARY | 2025-02-05 07:49 | XMS_ITS | Continuity of Care Document ---
Author Organization [facility] [address] [place] [address] Phone [phone] Care Team Providers Care Transport Operations Inspector Name Role Phone Kenzi. PETTY Rosales Care Team Information Chief Crew Scheduler [phone] Problems Active Problems Provider Date Carcinoma of breast Ainl Mathias M.D. Onset: 07/26/2022 Seasonal allergy Anil [...]
--- NOTE | 2025-02-05 08:26 | PM.PROC ---
Brief Operative Note Date of procedure: 02/05/25 Pre-op diagnosis: left mid 2.2 cm thyroid nodule FNA biopsy Post-op diagnosis: same Procedure: THYROID FINE NEEDLE ASPIRATION PROCEDURE NOTE ? PROCEDURE PERFORMED: Ultrasound-guided FNA of thyroid nodule ? OPERATORS: Dr. Elba Fleming ? INDICATION: left mid 2.2 cm thyroid nodule; FNA performed to assess for malignancy ? DESCRIPTION OF PROCEDURE: The indications for FNA (to assess for malignancy) were reviewed with the patient in detail. Potential complications (e.g., bleeding, infection, damage to local structures, absence of clear diagnosis after FNA) were reviewed. Alternatives to FNA including conservative observation or surgery were described. The patient understood and agreed to proceed. This was documented by the signing of the written informed consent form. A time-out was performed to confirm the patient's identity and the site of planned FNA. The nodule of interest was identified using ultrasound (14 MHz linear array probe). The site of FNA was then draped in the usual fashion and carefully cleaned and prepared using alcohol swabs. The skin at the previously-identified site of needle insertion was iced and sprayed with numbing spray. Under ultrasound guidance, _4_ passes were performed using a 1.5-inch, 25-gauge needle, and sample was obtained via capillary action. The needle tip was clearly visualized to be within the nodule at the time of sampling for 4__ of _4_ passes The patient tolerated the procedure well. There were no immediate complications. A small adhesive bandage was applied, and the patient was advised to take acetaminophen (rather than NSAIDs) for any discomfort and to report any signs of inflammation/infection or marked swelling. IMPRESSION: Technically successful ultrasound-guided fine needle aspiration of left mid 2.2 cm thyroid nodule. PLAN: The patient was advised that I will provide follow-up regarding the cytology result and any subsequent plans. Elba Fleming MD Endocrinology Attending Condition: stable Disposition: same day
[2025-02-05 12:00] LABS: Albumin Level 4.5 g/dL (3.5-5.0); Calcium 9.8 mg/dL (8.4-10.2); Estimated Glomerular Filt Rate > 60
== END 2025-02-05 07:44 | disposition home or self-care (01) ==
LOC: HO.US 07:43
PROVIDERS: PCP Physician Assistant; Visit Provider Student in an Organized Health Care Education/Training Program
DX: E04.2 Nontoxic multinodular goiter (principal); M81.6 Localized osteoporosis [Lequesne]
CPT/HCPCS: 10005; 36415; 82040; 82310; 82565; 88173; 88305

== ENCOUNTER → 2025-02-05 07:43 | Outpatient (BNV) | payer OTHER, SELFPAY | PROVIDERS: PCP Physician Assistant; Visit Provider Student in an Organized Health Care Education/Training Program | DX: E04.1 Nontoxic single thyroid nodule (principal) | CPT/HCPCS: 10005 ==

== ENCOUNTER 2025-02-19 14:37 | Outpatient (AMB) | payer OTHER, SELFPAY ==
[2025-02-19 14:39] VITALS: BP 114/74; PULSE 95; O2SAT 97; BMI 30.8
--- NOTE | 2025-02-19 14:39 | A.OFFVIS_ITS ---
Vital Signs 3 02/19/25 14:39 Height 5 ft 5 in Weight 184 lb 15.485 oz BMI 30.8 BP 114/74 Blood Pressure Location Lt brachial Position Sitting Pulse 95 Pulse Source Pulse Oximeter Pulse Oximetry (%) 97 Oxygen Delivery Method Room Air Intake Visit Reasons: Biopsy follow up Intake Note: Patient present today for biopsy results. Building Appraiser Required: No Accompanied by: Self / Same As Patient Allergies No Known Allergies Allergy (Verified 02/19/25 14:45) Medication List - Last Reconciled 02/19/25 by Elba Fleming MD azelastine 2 sprays intranasal ONCE hydrochlorothiazide 25 mg PO DAILY levocetirizine (Xyzal) 5 mg PO QPM HPI Comments Details: 48-year-old female here today for initial evaluation of multinodular goiter and osteoporosis in the setting of status post 5 years of Goserelin therapy (stopped therapy September 2024) for right breast cancer diagnosed 2019 status post lumpectomy and radiation. Multinodular goiter Has known about thyroid nodules since early 30s Saw someone at [facility] , not sure what was the plan . Says she had several biopsy 2 done at [facility] and one done at [facility], in her 30s and 40s, with benign results per patient we dont have records of these. Also has history of autoimmune thyroid disease, thinks she had hypothyroidism growing up ? was on levothyroxine for some years then taken off of it Ultrasound thyroid 11/13/24: I reviewed the images myself which showed a homogeneous gland with normal vascularity, with multiple bilateral nodules with a right superior 1.9 cm mixed cystic solid hypoechoic TR 3 nodule, a right mid 2.4 cm mixed cystic solid hypoechoic TR 3 nodule, a right inferior 1.2 cm mixed cystic solid hypoechoic TR 3 nodule. Left superior 0.8 cm solid hypoechoic TR 4 nodule. Left mid lobe 2.2 cm solid hypoechoic TR 4 nodule. Labs November 2024 show subclinical hyperthyroidism 11/06/24 TSH 0.05 low free t4 1.12 11/26/24 TSH 0.11 low free 1 Patient currently denies hair loss,changes in appearance of eyes or vision changes, tremors, increased diaphoresis or dry skin. ? Some intermittent palpitations. Hot flashes, post menopausal since 46 years or so, when she started goserelin therapy for breast cancer. does get loose stools. Weight stable. Low energy . Tirdness. Mood stable. no tremors. Patient denies any difficulty swallowing, pain on swallowing or voice changes or difficulty breathing. Feels more enlarged than before. history of right breast cancer s/p lumpectomy, radiation, and then was on tamoxifen for a year and a half sometime around 2018, 2019, then break for 6 months, then goserelin monthly shots for 3 years or so from 2021 to September 2024, now done with therapy Denies having ever used lithium, amiodarone or biotin supplements. Patient denies any family history of thyroid cancer . Maternal GF: thyroidectomy, not sure why Patient dropped in CD and paperwork on 12/25/2024. Ultrasound reviewed from [facility] done 07/02/2021: FNA biopsy performed off the Right lower pole mixed cystic solid 1.7 X 1 X1.6 cm nodule. 06/23/2021: Ultrasound of the thyroid done at [facility] which shows multiple bilateral nodules. Right lower pole 1.9 cm, left upper pole 1 cm and isthmus 1.7 cm nodules noted all without definite shadowing calculus or hypervascularity. 01/23/2025: Thyroid uptake and scan showed a heterogenous uptake with the overall normal uptake. Cold areas noted in the right superior, medial aspect of the right lower pole, left mid to lower pole. 12/16/2024: TSH 0.13, free T4 normal at 0.98, total T3 normal at 91, undetectable TSI, TSH receptor and TPO antibodies Interval history 02/05/2025 status post left mid 2.2 cm nodule which came back as AUS with architectural atypia, Nekoma category 3, Afirma came back as benign, 4% risk of malignancy. Osteoporosis Bone density scan 11/13/2024 showed osteoporosis of the lumbar spine with a T- score of-2.7, Z-score of-3.1. Showed normal bone density of the left total hip with a T-score of-0.9, Z-score of -1. Showed osteopenia of the left femoral neck with a T-score of-1.5, Z-score of-1.2. Post menopausal osteoporosis: Diagnosed in November 2024 Fracture History: toe fracture as a kid, metatarsal middle school fell on some rocks Height loss: 5 5' Back pain: some intermittent back pain Pharmacotherapeutic hx: none Drug holiday none Family history: mother and maternal GM, no parent fractured hip Estrogen use:was on OCPs in her20s to early 30s Menstrual hx: menarche: 11 years , 1, 1 live , regular periods during reproductive years, postmenopausal since age 46 after started on goserelin therapy Secondary risk factors: Steroid use: None Hyperthyroidism: yes? 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 Smoking history: smoked in her 20s for 10 years , then quit Dental: Has regular dental cleaning, no issues history of right breast cancer s/p lumpectomy, radiation, and then was on tamoxifen for a year and a half sometime around 2018, 2019, then break for 6 months, then goserelin monthly shots for 3 years or so from 2021 to September 2024, now done with therapy Interval history Secondary workup of osteoporosis unremarkable from December 2024, CTX 400, vitamin-D 53.4 Vitamin-D: 1000 units daily Calcium: 1200 mg daily in supplement Pending Reclast infusion Physical exam General: sitting comfortably in no acute distress HEENT: normocephalic/atraumatic, Neck: supple, palpable 2 cm left-sided nodule, palpable 1-2 cm right-sided nodule Cardiac: normal heart sounds Pulm: normal breath sounds B/L, no added breath sounds Abd: not distended, no tenderness Extremities: no edema, no signs of myxedema, no tremors Neuro: AAO x3, Speech: normal, no facial droop, moving all 4 extremities Laboratory Tests 10/01/24 11/06/24 11/26/24 07:37 09:34 14:51 Creatinine 0.75 Estimated GFR > 60 Calcium 9.7 Ionized Calcium 5.5 Albumin 4.4 25-OH Vitamin D Total 52.2 TSH 0.35 0.05 L 0.11 L Free T4 1.12 1.00 PTH Intact 68.5 Ur Calcium 24 Hr Calcium/Creat 24 Hr 12/02/24 06:00 Creatinine Estimated GFR Calcium Ionized Calcium Albumin 25-OH Vitamin D Total TSH Free T4 PTH Intact Ur Calcium 24 Hr 177 Calcium/Creat 24 Hr 147 Laboratory Tests 11/26/24 12/02/24 12/16/24 14:51 06:00 09:14 Creatinine 0.78 Estimated GFR > 60 Calcium 9.6 Phosphorus 3.1 Magnesium 2.2 Alk Phos Bone Specific 18.0 Total Protein (PEP) 6.9 Albumin 4.6 Collgn I C-Telopeptide 400 25-OH Vitamin D Total 53.4 TSH 0.11 L 0.13 L Free T4 1.00 0.98 Total T3 91 Thyroid Stim Immunoglob <89 PTH Intact 68.5 Ur Creatinine 24 Hour 1.21 Ur Calcium 24 Hr 177 Calcium/Creat 24 Hr 147 Thyroid Peroxidase Ab 1 TSH Receptor Ab <1.00 Laboratory Tests 02/05/25 09:20 Creatinine 0.79 Estimated GFR > 60 Calcium 9.8 EXAMINATION: NM THYROID IMAGING AND UPTAKE 01/23/25 CLINICAL INFORMATION: E05.90 - Thyrotoxicosis, unspecified without thyrotoxic crisis or storm COMPARISON: Correlation is made with a thyroid ultrasound dated 11/13/2024. TECHNIQUE: Following the oral administration of 297 microcuries of I-123 sodium iodide, thyroid uptake was performed and expressed as a percentage of the administrated dose. Gamma scintillation camera images of the thyroid in the anterior and right and left anterior oblique views were obtained using a pinhole collimator following the administration of 10 mCi Tc-99m pertechnetate. FINDINGS: The thyroid gland demonstrates a multilobulated contour with multiple areas of decreased uptake in both thyroid lobes corresponding to multiple nodules noted on ultrasound. The uptake is 10.79% at 4 hours and 28.33% at 24 hours. NM/NM thyroid w uptake IMPRESSION: 1. Multilobulated thyroid contour with multiple areas of decreased uptake corresponding to nodule seen on ultrasound. Cold defects are seen at the upper pole of the right thyroid lobe and the medial aspect of the lower pole on the right. On the left there is a cold defect in the mid to lower pole region. These do not correlate well with the nodules noted on ultrasound. 2. Normal 4-hour and 24-hour uptake. Electronically signed by: Tom Paz MD 01/27/2025 07:24 AM EDT EXAMINATION: US THYROID 11/13/24 HISTORY: E04.2 - Nontoxic multinodular goiter TECHNIQUE: Real-time grayscale ultrasound imaging was performed and images were reviewed. COMPARISON: There are no prior studies available for comparison. FINDINGS: SIZE: The right thyroid lobe measures 5.2 x 2.0 x 2.1 cm. The left thyroid lobe measures 5.4 x 1.5 x 1.6 cm. The isthmus measures 3 mm. FLOW: Flow to the gland is normal. ECHOGENICITY: The echotexture of the gland is homogeneous. NODULES: Multiple bilateral nodules are identified. The largest nodules are described below: Nodule #: 1 Location: Right upper pole measuring 1.9 x 1.2 x 1.5 cm. Shape: Wider than tall (0 points) Margins: Smooth (0 points) Echotexture: Indeterminate (1 point) Composition: Mixed (1 point) Calcifications: None (0 points) Total points: 2 TIRADS: TR2: Not suspicious Nodule #: 2 Location: Midportion of the right thyroid lobe measuring 2.4 x 1.3 x 1.6 cm. Shape: Wider than tall (0 points) Margins: Smooth (0 points) Echotexture: Indeterminate (1 point) Composition: Mixed (1 point) Calcifications: None (0 points) Total points: 2 TIRADS: TR2: Not suspicious Nodule #: 3 Location: Lower pole of the right thyroid lobe measuring 1.2 x 0.6 x 1.0 cm. Shape: Wider than tall (0 points) Margins: Smooth (0 points) Echotexture: Indeterminate (1 point) Composition: Mixed (1 point) Calcifications: None (0 points) Total points: 2 TIRADS: TR2: Not suspicious Nodule #: 4 Location: Upper pole of the left thyroid lobe measuring 0.7 x 0.6 x 0.8 cm. Shape: Wider than tall (0 points) Margins: Smooth (0 points) Echotexture: Hypoechoic (2 points) Composition: Mostly solid (2 points) Calcifications: None (0 points) Total points: 4 TIRADS: TR4: Moderately suspicious. Nodule #: 5 Location: Midportion of the left thyroid lobe measuring 2.2 x 0.7 x 1.7 cm. Shape: Wider than tall (0 points) Margins: Smooth (0 points) Echotexture: Hypoechoic (2 points) Composition: Solid (2 points) Calcifications: None (0 points) Total points: 4 TIRADS: TR4: Moderately suspicious. US/US thyroid IMPRESSION: Multinodular thyroid gland. According to ACR TI-RADS guidelines below, fine-needle aspiration of the moderately suspicious nodule in the midportion of the left thyroid lobe (nodule #5 above) is recommended. EXAMINATION: DXA BONE DENSITY AXIAL 11/13/24 HISTORY: Z13.820 - Encounter for screening for osteoporosis TECHNIQUE: [employer] Dual energy absorptiometry (DEXA) of the lumbar spine, total left hip, and femoral neck was performed. COMPARISON: There are no prior studies for comparison. FINDINGS: The bone mineral density of the lumbar spine is 0.855, corresponding to a T-score of -2.7, and a Z-score of -3.1. This is indicative of osteoporosis. The bone mineral density of the left total hip is 0.893, corresponding to a T-score of -0.9, and a Z-score of -1.0. This is indicative of normal bone mineral density. The bone mineral density of the left femoral neck is 0.830, corresponding to a T-score of -1.5, and a Z-score of -1.2. This is indicative of osteopenia. MM/XR DEXA axial skeleton IMPRESSION: Based on bone mineral density, and according to World Health Organization (WHO) criteria, the diagnosis is consistent with osteoporosis. All bone density values are in grams per centimeter squared (g/cm2). Statistically, 68% of repeat scans fall within 1 SD (+/- 0.010 g/cm2 for AP spine L1-L4) and 1 SD (+/- 0.012 g/cm2 for femur total) FRAX is a trademark of the [employer] [place] [facility], a World Health Organization (WHO) Collaborating Center. 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 Current occupational exposures/hazards: No Cognitive needs: No Hearing needs: No Vision needs: No Physical Exam Vital Signs: Last Vital Signs Pulse 95 02/19/25 14:39 BP 114/74 02/19/25 14:39 Pulse Ox 97 02/19/25 14:39 Oxygen Delivery Method Room Air 02/19/25 14:39 BMI result Body Mass Index 30.8 Assessment & Plan Assessment & Plan (1) Multinodular goiter: Code(s): E04.2 - Nontoxic multinodular goiter Category: Medical Plan: 49-year-old female with past medical history significant for right breast cancer diagnosed 2019 status post lumpectomy and radiation status post 5 years of hormone therapy with a about 3 years of goserelin therapy included in that stopped September 2024, with no family history of thyroid cancer, coming in today for multinodular goiter and subclinical hyperthyroidism. She has had thyroid nodules since she was in her 30s, has had multiple biopsies before, not sure which ones, we do not have records of these today, however results were benign per patient. Per patient she was also on levothyroxine remotely for some years when she was diagnosed with autoimmune thyroid disease. blood work from November 2024 showed TSH was low 11/06/2024 at 0.05 with normal free T4 of 1.12. Labs repeated 11/26/2024 showed TSH was low again at 0.11, free T4 normal at 1. Ultrasound reviewed from [facility] done 07/02/2021: FNA biopsy performed off the Right lower pole mixed cystic solid 1.7 X 1 X1.6 cm nodule. 06/23/2021: Ultrasound of the thyroid done at [facility] which shows multiple bilateral nodules. Right lower pole 1.9 cm, left upper pole 1 cm and isthmus 1.7 cm nodules noted all without definite shadowing calculus or hypervascularity. 01/23/2025: Thyroid uptake and scan showed a heterogenous uptake with the overall normal uptake. Cold areas noted in the right superior, medial aspect of the right lower pole, left mid to lower pole. 12/16/2024: TSH 0.13, free T4 normal at 0.98, total T3 normal at 91, undetectable TSI, TSH receptor and TPO antibodies At this point her diagnosis is consistent with toxic nodules. Her TSH is greater than 0.1, she is young, no history of ischaemic heart disease however she does have osteoporosis. Underlying overactivity of the thyroid could be contributing to that so we could think about treatment. Briefly I spoke to her about possibly considering surgery in the future. She would not be a good candidate for radioactive iodine treatment given history of breast cancer. As far as her nodules are concern, the thyroid uptake and scan does not correlate very well with the ultrasound findings however her left midpole nodule measuring 2.2 cm TR 4 category, I do not have previous records of biopsy of this, and this meets criteria for FNA. Given thyroid uptake and scan also possibly points towards a cold area in the left mid to lower pole, 02/05/2025 status post left mid 2.2 cm nodule which came back as AUS with architectural atypia, Nekoma category 3, Afirma came back as benign, 4% risk of malignancy. At this point we will plan to keep an eye on her thyroid function as well as nodules. Plan: -ordered ultrasound of the thyroid to be done in January 2026 prior to follow up in February 2026 -ordered TSH, free T4, total T3 to be done a week or 2 prior to follow up in February 2026 (2) Subclinical hyperthyroidism: Code(s): E05.90 - Thyrotoxicosis, unspecified without thyrotoxic crisis or storm Category: Medical Plan: See above (3) Osteoporosis: Code(s): M81.0 - Age-related osteoporosis without current pathological fracture Category: Medical Qualifiers: Osteoporosis type: localized Presence of current pathological fracture: without current pathological fracture Qualified Code(s): M81.6 - Localized osteoporosis [Lequesne] Plan: 48-year-old female with a history of right breast cancer status post lumpectomy and radiation in 2019 status post tamoxifen for 1-1/2 years, status post goserilin therapy for 3 years ended September 2024, who follows with Dr. Hung at [facility] for the breast cancer, who is coming in today to establish care for osteoporosis as well. Diagnosed on bone density in November 2024 which showed osteoporosis of the lumbar spine with a T-score of-2.7, Z-score of-3.1. Showed normal bone density of the left total hip with a T-score of-0.9, Z-score of -1. Showed osteopenia of the left femoral neck with a T-score of-1.5, Z-score of- 1.2. Prior to that she had a bone density in December 2023 which was done at [facility], which showed stable bone density of the spine and hip compared to bone density in January of 2023. It does not state exact T-scores are Z scores, however does state osteopenia of the spine and hip. She has been maintained on vitamin-D and calcium supplements. No therapy for osteoporosis. Her risk factors for osteoporosis include antiestrogen therapy, subclinical hyperthyroidism, family history of osteoporosis, possibly poor nutritional intake of calcium. Blood work from September 2024 showed normal kidney function with a GFR greater than 60, calcium of 9.7 with albumin of 4.4, corrected calcium would be 9.3, vitamin-D normal of 52.2, blood work repeated 11/26/2024 showed ionized calcium normal at 5.5, normal PTH of 68.5, 12/02/2024 24 hour urine calcium was normal at 177. Secondary workup for osteoporosis from December 2024 was unremarkable. CTX at 400. Vitamin-D level of 53.4. She is currently taking 1000 units of vitamin-D and 1200 mg of calcium in supplement. I did tell her to split her calcium supplement to 600 mg b.i.d. for better absorption. I believe she is good candidate for medication for osteoporosis especially given osteoporosis in the spine. Fortunately she has not had any fractures. Given Z scores as low as-3.1, would consider giving her Reclast. We also discussed Fosamax however patient is apprehensive of taking Fosamax due to bad reaction in her mother. She does not have any history of acid reflux. She is up-to-date with dental workup no issues. We discussed modes of administration, common side effects, importance of hydration and Tylenol around the infusion, side effects of hypocalcemia, importance of continuing vitamin-D, side effects of muscle aches and pains, rare side effects of osteonecrosis of the jaw and atypical femur fracture. Plan: -continue vitamin-D and calcium supplements, -advised to at least take 1000 units of vitamin-D daily -advised to at least incorporate 1000 mg of calcium in supplement/diet -advised 30 minutes of walking 5 days a week -pending Reclast infusion -follow up in 1 year with bone resorption markers, calcium, albumin, vitamin-D levels, creatinine Plan See above Orders: Orders 2 Triiodothyronine T3 Total 01/16/26 E04.2 - Nontoxic multinodular goiter, E04.9 - Nontoxic goiter, unspecified, E05.90 - Thyrotoxicosis, unspecified without thyrotoxic crisis or storm, M81.6 - Localized osteoporosis [Lequesne] US thyroid 01/16/26 E04.2 - Nontoxic multinodular goiter, E04.9 - Nontoxic goiter, unspecified, E05.90 - Thyrotoxicosis, unspecified without thyrotoxic crisis or storm, M81.6 - Localized osteoporosis [Lequesne] Collagen Type I C-Telopeptide 01/16/26 E04.2 - Nontoxic multinodular goiter, E05.90 - Thyrotoxicosis, unspecified without thyrotoxic crisis or storm, M81.6 - Localized osteoporosis [Lequesne] Alkaline Phosphatase Bone 01/16/26 E04.2 - Nontoxic multinodular goiter, E05.90 - Thyrotoxicosis, unspecified without thyrotoxic crisis or storm, M81.6 - Localized osteoporosis [Lequesne] Calcium 01/16/26 E04.2 - Nontoxic multinodular goiter, E05.90 - Thyrotoxicosis, unspecified without thyrotoxic crisis or storm, M81.6 - Localized osteoporosis [Lequesne] Albumin Level 01/16/26 E04.2 - Nontoxic multinodular goiter, E05.90 - Thyrotoxicosis, unspecified without thyrotoxic crisis or storm, M81.6 - Localized osteoporosis [Lequesne] Vitamin D 25-OH Total 01/16/26 E04.2 - Nontoxic multinodular goiter, E05.90 - Thyrotoxicosis, unspecified without thyrotoxic crisis or storm, M81.6 - Localized osteoporosis [Lequesne] Creatinine 01/16/26 E04.2 - Nontoxic multinodular goiter, E05.90 - Thyrotoxicosis, unspecified without thyrotoxic crisis or storm, M81.6 - Localized osteoporosis [Lequesne] Thyroid Stimulating Hormone 01/16/26 E04.2 - Nontoxic multinodular goiter, E04.9 - Nontoxic goiter, unspecified, E05.90 - Thyrotoxicosis, unspecified without thyrotoxic crisis or storm, M81.6 - Localized osteoporosis [Lequesne] Free T4 (Free Thyroxine) 01/16/26 E04.2 - Nontoxic multinodular goiter, E04.9 - Nontoxic goiter, unspecified, E05.90 - Thyrotoxicosis, unspecified without thyrotoxic crisis or storm, M81.6 - Localized osteoporosis [Lequesne] Phosphorus 01/16/26 E04.2 - Nontoxic multinodular goiter, E05.90 - Thyrotoxicosis, unspecified without thyrotoxic crisis or storm, M81.6 - Localized osteoporosis [Lequesne] Patient Instructions: Do ultrasound of the thyroid in January 2026, someone will call you to schedule this , please make sure this is done a few weeks prior to your next follow up in February 2026 Do fasting 8 AM blood work a week or two prior to next follow up in 2025, orders placed Continue vitamin D 1000 units daily Continue calcium intake 1000 mg daily Get Reclast infusion Coding Level of Care Code Est Pt Level 3 (57169) Diagnoses Multinodular goiter E04.2 Subclinical hyperthyroidism E05.90 Localized osteoporosis without current pathological fracture M81.6 Osteoporosis type: localized Presence of current pathological fracture: without current pathological fracture
--- OUTSIDE RECORDS SUMMARY | 2025-02-19 18:16 | XMS_ITS | Clinical Summary ---
Author Organization [facility] Address [address] [place] [address] Care Team Providers Care Stick Roller Name Role Phone Vickie Sutton MD Primary Care Provider [phone] Allergies No known active allergies Medications Medication [...] age to complete this topic Care Teams Stick Roller Relationship Specialty Start Date End Date Vickie Sutton MD PCP - General Internal Medicine 09/08/23
--- OUTSIDE RECORDS SUMMARY | 2025-02-19 18:16 | XMS_ITS ---
Author Organization [facility] Address [address] [place] [address] Care Team Providers Care Prosthodontist/Educator Name Role Phone Vickie Sutton MD Primary Care Provider [phone] Active Problems Problem Noted Date Diagnosed Date Malignant neoplasm of upper- outer quadrant of right breast in female, estrogen receptor positive 10/29/[address] 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 GOSERELIN 3.6MG (ZOLADEX) 10/06/2022 09/14/2023 goserelin (ZOLADEX) Entered in error Marlena Mayberry DO [facility] GOSERELIN 3.6MG (ZOLADEX) 11/04/2021 10/06/2022 goserelin (ZOLADEX) Entered in error Antonino Das MD Radiation Treatments * No radiation treatments are documented for this patient in [facility]. Treatments may have been administered in another system.
--- OUTSIDE RECORDS SUMMARY | 2025-02-19 18:16 | XMS_ITS | Clinical Summary ---
Author Organization [facility] Address [address] [address] Phone Care Team Providers Care Mandarin Speaking Nanny Name Role Phone Jillian Rosales Primary Care Provider [phone] Social History Tobacco Use Types Packs/Day Years [...] FOBT 2021 SIGMOIDOSCOPY 2021 VIRTUAL COLONOSCOPY 2021 INFLUENZA VACCINE (#1) 2025 COVID-19 VACCINE (2023-2 5 season) 2025 HEPATITIS A VACCINES Aged Out No long [...] Not on file Insurance O O O Member Subscriber Plan / Payer (Ef fective 2023-) Name:Sonali Thomas Relation to Subscriber:Self Name:Sonali Thomas Payer ID:Not on file Group ID:Not on file Type:HMO Address: [address] [place], [place] [address]O [facility] Member Subscriber Plan / Payer (Ef fective 2023-Present) Name:Sonali Thomas Relation to Subscriber:Self Name:Sonali Thomas Payer ID:Not on file Group ID:Not on file Type:HMO Address: [address] [address] [facility] HMO Care Teams Mandarin Speaking Nanny Relationship Specialty Start Date End Date Jillian Rosales PA [address] [place] [id number] PCP - General Physician Oxygen Equipment Preparer 04/25/23 Additional Source Comments The information contained in this document represents components of the legal health record. It is not the complete legal health record.[facility]
--- OUTSIDE RECORDS SUMMARY | 2025-02-19 18:16 | XMS_ITS | Continuity of Care Document ---
Author Organization [facility] [address] [place] [address] Phone [phone] Care Team Providers Care Advertising Photographer Name Role Phone Kenzi. PETTY Rosales Care Team Information Wholesale Account Executive [phone] Problems Active Problems Provider Date Carcinoma of [...]
== END 2025-02-19 15:10 | disposition home or self-care (01) ==
LOC: HO.ENCR 14:38
PROVIDERS: PCP Physician Assistant; Visit Provider Student in an Organized Health Care Education/Training Program
DX: E04.2 Nontoxic multinodular goiter (principal); E05.90 Thyrotoxicosis, unspecified without thyrotoxic crisis or storm; M81.6 Localized osteoporosis [Lequesne]
CPT/HCPCS: 99213

== ENCOUNTER 2025-03-07 13:32 | Outpatient (REF) | payer OTHER, SELFPAY ==
--- OUTSIDE RECORDS SUMMARY | 2021-12-30 15:25 | XMS_ITS | Encounter Summary ---
Author Organization [facility] Address [address] [place] [address] Care Team Providers Care Cordage Sales Representative Name Role Phone Jillian Rosales Primary Care Provider [phone] Encounter Details Date Type Department Care Team [...] Description 12/15/2025 9:00 AM EDT Office Visit [facility] Hematology Oncology [address] [place] [address] Marlena Mayberry, DO [address] [place] [address] documented as of this encounter Visit Diagnoses Not on filedocumented in this encounter Care Teams Cordage Sales Representative Relationship Specialty Start Date End Date Jillian Rosales PA PCP - General Physician Sheet Music Salesperson 09/30/21 09/07/23 documented as of this encounter
--- OUTSIDE RECORDS SUMMARY | 2024-03-28 13:24 | XMS_ITS | Encounter Summary ---
Author Organization [facility] Address [address] [place] [address] Care Team Providers Care Superintendent Of Schools Name Role Phone Vickie Sutton MD Primary Care Provider [phone] Encounter Details Date Type Department Care Team [...] Description 12/15/2025 9:00 AM EDT Office Visit [facility] Hematology Oncology [address] [place] [address] Marlena Mayberry, DO [address] [place] [address] documented as of this encounter Visit Diagnoses Not on filedocumented in this encounter Care Teams Superintendent Of Schools Relationship Specialty Start Date End Date Vickie Sutton MD PCP - General 09/08/23 07/17/24 documented as of this encounter
--- OUTSIDE RECORDS SUMMARY | 2025-03-07 07:34 | XMS_ITS | Clinical Summary ---
Author Organization [facility] Address [address] [place] [address] Phone Care Team Providers Care Crystal Finisher Name Role Phone Jillian Rosales Primary Care Provider [phone] Allergies No known active allergies Medications albuterol HFA (PROAIR HFA ; PROVENTIL HFA ; VENTOLIN HFA) 90 mcg/actuation inhaler Inhale 2 puffs by mouth every 6 hours as needed for wheezing. 05/20/2019 Active hydroCHLOROthiaz kt 12.5 mg tablet Take 1 tablet (12.5 mg total) by mouth 1 (one) time each day. 03/22/2023 Active calcium carbonate-vitami n D 500 mg-5 mcg (200 unit) per tablet Take 1 tablet by mouth 1 (one) time each day. Active Active Problems Problem Noted Date Diagnosed Date Malignant neoplasm of right female breast, unspecified estrogen receptor status, unspecified site of breast ([facility] V24, [facility] V28) 04/25/2024 Malignant neoplasm of female breast ([facility] V24, [facility] V28) 04/15/2021 Encounters Date Type Department Care Team Description 01/13/2025 11:26 AM EDT Anesthesia Event [facility] Endoscopy [address] [place] [address] Reinier Siddiqui MD 01/13/2025 10:08 AM EDT - 01/13/2025 11:59 PM EDT Hospital Encounter [facility] Endoscopy [address] [place] [address] Alexander De La Garza DO Couture, Alison, CRNA Colon cancer screening Discharge Disposition: Home or Self Care 12/19/2024 9:00 AM EDT Office Visit [facility] Hematology Oncology [address] [place] [address] Jena Gonzales DO Malignant neoplasm of right female breast, unspecified estrogen receptor status, unspecified site of breast ([facility] V24, [facility] V28) (Primary Dx) from Last 3 Months Immunizations Immunization Administration Dates Next Due Pfizer SARS-CoV-2 COVID-19, mRNA, LNP-S, preservative free 04/20/2021,03/30/2021 Surgical History Surgery Date Site/Laterality Comments BREAST LUMPECTOMY Right Medical History Medical History Date Comments Hypertension Asthma Breast cancer ([facility] V24, [facility] V28) Skin cancer Social History Tobacco Use [...] Description 12/15/2025 9:00 AM EDT Office Visit [facility] Hematology Oncology [address] [place] [address] Jena Gonzales, DO [address] [place] [address] Health Maintenance Due Date Last Done Comments [...] (Bone Density Screening) 01/01/2039 01/02/2024, 01/06/2023, 12/27/2021 RSV Immunization Adult Patients (1 - 1-dose 75+ series) 12/22/2051 HIB Vaccines Aged Out No longer eligi [...] Maintenance Results * COLONOSCOPY Anesthesia - MAC; [facility] ENDOSCOPY (01/13/2025 11:40 AM [...] pathology results. Narrative 01/13/2025 11:[address] [facility] GI Patient Name: Chanell Thomas Procedure Date: 01/13/2025 10:55 AM Date of : 1975 Age: 49 Gender: Female Note Status: Finalized Attending MD: Alexander De La Garza DO, [id number] Procedure Date No Time: 01/13/2025 Procedure: Colonoscopy [...] the physician, the nurse, the anesthesiologist, the university relations director and the upholstery technician in the pre-procedure area in the [...] retroflexion views. Procedure Code(s): --- Professional --- 12154, Colonoscopy, flexible; with removal of tumor(s), polyp(s), or other lesion(s) by snare technique Diagnosis Code(s): --- Professional --- Z12.11, Encounter for screening for malignant neoplasm of colon K64.9, Unspecified hemorrhoids D12.8, Benign neoplasm of rectum CPT copyright 2020 [employer]. All rights reserved. The codes documented in this report are preliminary and upon stab setter and driller review may be revised to meet current compliance requirements. ALEXANDER De La Garza DO 01/13/2025 11:40:44 AM This report has been signed electronically.Alexander De La Garza DO Number of Addenda: 0 Note Initiated On: 01/13/2025 10:55 AM Scope Withdrawal Time: 0 hours 6 minutes 15 seconds Scope In: 11:30:55 AM Scope Out: 11:39:12 AM Endoscopy Department at [facility] - [address] [place] [address] Procedure Note Alexander De La Garza DO - 01/13/2025 [facility] GI Patient Name: Chanell Thomas Procedure Date: 01/13/2025 10:55 AM Date of : 1975 Age: 49 Gender: Female Note Status: Finalized Attending MD: Alexander De La Garza DO, [id number] Procedure Date No Time: 01/13/2025 Procedure: Colonoscopy [...] the physician, the nurse, the anesthesiologist, the university relations director and thetechnician in the pre-procedure area in [...] retroflexion views. Procedure Code(s): --- Professional --- 83186, Colonoscopy, flexible; with removal of tumor(s), polyp(s), or other lesion(s) by snare technique Diagnosis Code(s): --- Professional --- Z12.11, Encounter for screening for malignantneoplasm of colon K64.9, Unspecified hemorrhoids D12.8, Benign neoplasm of rectum CPT copyright 2020 [employer]. All rights reserved. The codes documented in this report are preliminary and upon stab setter and driller reviewmay be revised to meet current compliance requirements. ALEXANDER De La Garza DO 01/13/2025 11:40:44 AM This report has been signed electronically.Alexander De La Garza DO Number of Addenda: 0 Note Initiated On: 01/13/2025 10:55 AM Scope Withdrawal Time: 0 hours 6 minutes 15 seconds Scope In: 11:30:55 AM Scope Out: 11:39:12 AM Endoscopy Department at [facility] - [address] [place] [address] IMPRESSION: - Hemorrhoids found on perianal exam. - One 10 mm polyp in the rectum, removed with acold snare. Resected and retrieved. - The examination was otherwise normal on directand retroflexion views. Recommendation: - Discharge patient to home. - High fiber diet. - Continue present medications. - Await pathology results. - Repeat colonoscopy for surveillance based on pathology results. us Alexander De La Garza DO GI~PROCEDURE ORDERABLES Final Re sult * Tissue exam (01/13/2025 11:37 AM EDT) Final Diagnosis Rectum, polyp: Tubular adenoma. 01/14/2025 12:00 PM EDT [facility] Gross Description A. Large Intestine, [...] survive processing. hs/DG 01/14/2025 12:00 PM EDT [facility] Disclaimer Unless otherwise specified, all tissue is 10% NB formalin fixed and paraffin embedded. 01/14/2025 12:00 PM EDT [facility] Tissue Rectum structure / Unknown 01/13/2025 11:37 AM EDT 01/13/2025 1:52 PM EDT Alexander Frederic [facility] PATHOLOGY ORDERABLES Final R esult [facility] [address] [place] [address], * CASSANDRA DEXA AXIAL SKELETON (01/02/2024 7:39 AM EDT) Anatomical Region Laterality Modality Mammography 01/01/2024 1:24 PM EDT Narrative 01/02/2024 7:39 AM [facility] Diagnostic Imaging Department [address] [place] [id number] Patient: NEWTONCHANELL /Age/Sex: 1975 - 48 - F Unit#: [id number] Location/Status: SPDIMAM/REG CLI [facility]em[facility] Ordering Physician: JENA GONZALES Cassandra Dexa Axial [...] probability of hip fracture of 0.5%. Code 14533 Dictating Physician: CAMILLA WEBB MD Electronically Signed by: CAMILLA WEBB MD Dic Date/Time: 01/02/24737 Sign date/Time: 01/02/24738 Procedure Note Camilla Webb MD - 03/20/2024 [facility] Diagnostic Imaging Department [address] [place] [address] Patient: CHANELL THOMAS /Age/Sex: 1975 - 48 - F Unit#: [id number] Location/Status: [facility] Mnemonic/Ordering [facility] Ordering Physician: JENA GONZALES [facility] Dexa Axial Skeleton - 01/01/24 - 1342 [...] density of the femurs bilaterally is 0.948 gm/xv2gjlao is 94% of that of young normals [...] probability of hip fracture of 0.5%. Code 01990 Dictating Physician: CAMILLA WEBB MD Electronically Signed by: CAMILLA WEBB MD Dic Date/Time: 01/02/2438 Sign date/Time: 01/02/24738 Jena Babita Gonzales DO IMG BI PROCEDURES Fin al Result from Last 3 Months or Most Recently Relevant to Health Maintenance Insurance [facility] Care Teams Crystal Finisher Relationship Specialty Start Date End Date Jillian Rosales PA [address] [place] [address] PCP - General Physician Windows And Doors Installer 01/13/25
--- OUTSIDE RECORDS SUMMARY | 2025-03-07 07:34 | XMS_ITS ---
Author Name Shelly Ybarra Address Unknown Organization [facility] Care Team Providers Care Director Of Archives Name Role Phone Unavailable Primary Care Physician Unavailab le History Of Present Illness This is a 49 year old female who is an established patient who is being seen for an evaluation of skin lesions.Location: body throughoutQuality: asymptomaticPertinent History: melanoma (see interval history) and dysplastic neviPertinent Negatives: no family history of melanomaAdditional Visit Reasons: surveillance against skin cancer recurrences Medications Medication Generic Name RxNorm Strength Strength Unit Route Dose Dose Form Frequency Date Started Date Ended Status Indication Sig hydrochloro thiazide 25 mg Oral 1 table t once daily active Problems Problem Code Type Status Date of Diagnosis Da te of Resolution Neoplastic disease (disorder) 31905963(SNO MED) Diagnosis active 03/04/2025 Benign neoplasm of skin of left lower limb (disorder) 751175329554 9109(SNOMED) Diagnosis active 03/04/2025 Melanocytic nevus of skin (disorder) 617064457(SN OMED) Diagnosis active 03/04/2025 Melanocytic nevus (disorder) 433779485(SN OMED) Diagnosis active 03/04/2025 Melanocytic nevus of left upper limb (disorder) 686689258183 103(SNOMED) Diagnosis active 03/04/2025 Melanocytic nevus of left lower limb (disorder) 906804546105 106(SNOMED) Diagnosis active 03/04/2025 Melanocytic nevus of trunk (disorder) 539134011(SN OMED) Diagnosis active 03/04/2025 History of malignant melanoma of the skin (situation) 378789098200 (SNOMED) Diagnosis active 03/04/2025 Neoplastic disease (disorder) 38083927(SNO MED) Diagnosis active 07/04/2024 Benign neoplasm of skin of left lower limb (disorder) 192522380597 9109(SNOMED) Diagnosis active 07/04/2024 Melanocytic nevus of skin (disorder) 089933094(SN OMED) Diagnosis active 07/04/2024 Melanocytic nevus (disorder) 124320857(SN OMED) Diagnosis active 07/04/2024 Melanocytic nevus of left upper limb (disorder) 971933399692 103(SNOMED) Diagnosis active 07/04/2024 Melanocytic nevus of left lower limb (disorder) 998287198420 106(SNOMED) Diagnosis active 07/04/2024 Melanocytic nevus of trunk (disorder) 029173315(SN OMED) Diagnosis active 07/04/2024 History of malignant melanoma of the skin (situation) 904752604612 (SNOMED) Diagnosis active 07/04/2024 Melanocytic nevus of trunk (disorder) 415402893(SN OMED) Diagnosis active 01/25/2024 Melanocytic nevus of left upper limb (disorder) 686007425197 103(SNOMED) Diagnosis active 01/25/2024 Melanocytic nevus of right lower limb (disorder) 047483050491 108(SNOMED) Diagnosis active 01/25/2024 Melanocytic nevus of skin (disorder) 685094688(SN OMED) Diagnosis active 01/25/2024 Skin changes due to chronic exposure to non-ionizing radiation (disorder) 795301383(SN OMED) Diagnosis active 01/25/2024 Benign neoplasm of skin (disorder) 25607991(SNO MED) Diagnosis active 01/25/2024 History of malignant melanoma of the skin (situation) 799095228895 (SNOMED) Diagnosis active 01/25/2024 Melanocytic nevus of trunk (disorder) 990165287(SN OMED) Diagnosis active 07/06/2023 Melanocytic nevus of skin (disorder) 284110881(SN OMED) Diagnosis active 07/06/2023 Melanocytic nevus of left upper limb (disorder) 746546828133 103(SNOMED) Diagnosis active 07/06/2023 Neoplasm of uncertain behavior of skin (disorder) 66159872(SNO MED) Diagnosis active 07/06/2023 Benign neoplasm of skin of left lower limb (disorder) 343730339624 9109(SNOMED) Diagnosis active 07/06/2023 History of malignant melanoma of the skin (situation) 141511851969 (SNOMED) Diagnosis active 07/06/2023 Benign neoplasm of skin (disorder) 88299051(SNO MED) Diagnosis active 08/25/2022 Melanocytic nevus of trunk (disorder) 148319950(SN OMED) Diagnosis active 08/25/2022 Melanocytic nevus of skin (disorder) 595309902(SN OMED) Diagnosis active 08/25/2022 Melanocytic nevus of right upper limb (disorder) 690576846(SN OMED) Diagnosis active 08/25/2022 Melanocytic nevus of left upper limb (disorder) 758702484039 103(SNOMED) Diagnosis active 08/25/2022 Benign neoplasm of skin of left lower limb (disorder) 644752987404 9109(SNOMED) Diagnosis active 08/25/2022 History of malignant melanoma of the skin (situation) 738269462065 (SNOMED) Diagnosis active 08/25/2022 History of malignant melanoma of the skin (situation) 248272383480 (SNOMED) Diagnosis active 01/06/2022 Melanocytic nevus of trunk (disorder) 672077001(SN OMED) Diagnosis active 01/06/2022 Melanocytic nevus of right upper limb (disorder) 621244025(SN OMED) Diagnosis active 01/06/2022 Melanocytic nevus of left upper limb (disorder) 975604640201 103(SNOMED) Diagnosis active 01/06/2022 Melanocytic nevus of ear (disorder) 771964462(SN OMED) Diagnosis active 01/06/2022 Melanocytic nevus of left lower limb (disorder) 218996223512 106(SNOMED) Diagnosis active 01/06/2022 Melanocytic nevus of lower limb (disorder) 896984954(SN OMED) Diagnosis active 01/06/2022 Melanocytic nevus of right upper limb (disorder) 165474815(SN OMED) Diagnosis active 07/22/2021 Melanocytic nevus of trunk (disorder) 718479586(SN OMED) Diagnosis active 07/22/2021 Melanocytic nevus of skin (disorder) 522101414(SN OMED) Diagnosis active 07/22/2021 History of malignant melanoma of the skin (situation) 684480126327 (SNOMED) Diagnosis active 07/22/2021 Neoplasm of uncertain behavior of skin (disorder) 60021262(SNO MED) Diagnosis active 12/31/2020 Melanocytic nevus of trunk (disorder) 349417319(SN OMED) Diagnosis active 12/31/2020 Melanocytic nevus of left upper limb (disorder) 229541621885 103(SNOMED) Diagnosis active 12/31/2020 Melanocytic nevus of right upper limb (disorder) 595929012(SN OMED) Diagnosis active 12/31/2020 Melanocytic nevus of lower limb (disorder) 911965831(SN OMED) Diagnosis active 12/31/2020 Melanocytic nevus of left lower limb (disorder) 248069902193 106(SNOMED) Diagnosis active 12/31/2020 Melanocytic nevus of skin (disorder) 925105492(SN OMED) Diagnosis active 12/31/2020 Benign neoplasm of skin of right upper limb (disorder) 252757208588 9103(SNOMED) Diagnosis active 12/31/2020 Melanocytic nevi of trunk D22.5(ICD-10 ) Diagnosis active 04/22/2020 Melanocytic nevi of left upper limb, including shoulder D22.62(ICD-1 0) Diagnosis active 04/22/2020 Melanocytic nevi of right upper limb, including shoulder D22.61(ICD-1 0) Diagnosis active 04/22/2020 Melanocytic nevi of left lower limb, including hip D22.72(ICD-1 0) Diagnosis active 04/22/2020 Melanocytic nevi of right lower limb, including hip D22.71(ICD-1 0) Diagnosis active 04/22/2020 Other seborrheic keratosis L82.1(ICD-10 ) Diagnosis active 04/22/2020 Personal history of malignant melanoma of skin Z85.820(ICD- 10) Diagnosis active 04/22/2020 Melanocytic nevus of trunk (disorder) 741769366(SN OMED) Diagnosis active 06/13/2018 Melanocytic nevus of trunk (disorder) 020168906(SN OMED) Diagnosis active 11/22/2017 Melanocytic nevus of trunk (disorder) 549541566(SN OMED) Diagnosis active 05/17/2017 Melanocytic nevus of trunk (disorder) 924248296(SN OMED) Diagnosis active 11/02/2016 Neoplasm of uncertain behavior of skin (disorder) 83407721(SNO MED) Diagnosis active 05/04/2016 Melanocytic nevus of trunk (disorder) 263959713(SN OMED) Diagnosis active 10/14/2015 Benign neoplasm of skin of trunk (disorder) 32219366(SNO MED) Diagnosis active 09/17/2014 Benign neoplasm of skin of trunk (disorder) 00735490(SNO MED) Diagnosis active 03/12/2014 Personal history of malignant melanoma of skin Z85.820(ICD- 10) Diagnosis active 10/09/2013 Asthma (disorder) 998629206(SN OMED) Problem active Increased blood pressure (finding) 67078074(SNO MED) Problem active Dysplastic nevus of skin (disorder) 332481510(SN OMED) Problem active Malignant melanoma (disorder) 956008348(SN OMED) Problem active Osteoporosis (disorder) 48527438(SNO MED) Problem active History of clinical finding in subject (situation) 204483759(SN OMED) Problem active Results No data Encounters Service provided at [facility], [address] [place] [address], [address], [place], [place] [id number]. Office phone number is [phone]. Office fax number is [phone]. Encounter Diagnosis Location Date / Time Type Nodule (D49.2)Dermatofibroma (D23.72)Benign Appearing Nevi (D22.4,D22.9,D22.62,D22.72,D22.5)Dysplastic Nevi (D22.62,D22.5,D22.72)History of malignant melanoma (Z85.820) [facility] 03/04/2025 13:45:00 [facility] [address] Reason For Referral No data Procedures Procedure Date Documentation of current medications (pr ocedure) 03/04/2025 12:00 am [facility] Documentation of current medications (pr ocedure) 07/22/2021 12:00 am [facility] Shave biopsy (procedure) 12/31/2020 12:0 0 am [facility] Documentation of past medical history (p rocedure) Documentation of past medical history (p rocedure) Documentation of past medical history (p rocedure) Documentation of past medical history (p rocedure) Documentation of past medical history (p rocedure) Documentation of past medical history (p rocedure) Documentation of past medica l history (procedure) Lumpectomy right breast- 2019 Review Of Systems Provider reviewed on Mar 04, 2025.A focused review of systems was performed including Hematologic /Lymphatic and Integumentary and was notable for problems with bleeding.No Problems With Healing AndNo Problems With Scarring (hypertrophic Or Keloid). Assessment 1.Nodule - This does not seem to be changing.2.DermatofibromaReassurance3.Benign Appearing NeviCounselingMedical Photography Review: Review Findings - no new or changing lesions.4.Dysplastic Nevi - Mole exam appears to be unchanged.CounselingMedical Photography Review: Review Findings - no new or ch anging lesions.5.History of malignant melanomaReassurance Plan of Care Future visit for 08/19/2025 - Follow up in 6 months for: Skin Check. Other Instructions: Cse. OtherInstructions: Cse. Instructions * I counseled the patient regarding the following:Instructions: Periodic self- skin checks to monitor for any changes in moles are recommended.Contact Office if: Any moles change in size, shape or color; itch, burn or bleed. * I counseled the patient regarding the following:Education: The importance of regular self skin checks to monitor for any changes in mole size, shape or color was reviewed with the patient.Contact office if: Any moles change in size, shape or color, or itch, burn or bleed. Social History Code Activity Start Date End Date 3540405 (SNOMED) Former smoker Sex female Sexual orientation Unspecified Gender identity Unspecified Vital Signs No data
--- OUTSIDE RECORDS SUMMARY | 2025-03-07 07:34 | XMS_ITS | Continuity of Care Document ---
Author Organization [facility] [address] [place] [address] Phone [phone] Care Team Providers Care Construction Supervisor/Carpenter Name Role Phone Kenzi. PETTY Rosales Care Team Information Child Care Giver [phone] Problems Active Problems Provider Date Carcinoma of [...]
--- OUTSIDE RECORDS SUMMARY | 2025-03-07 07:34 | XMS_ITS ---
Author Organization [facility] Address [address] [place] [address] Phone Care Team Providers Care Voice Instructor Name Role Phone Jillian Rosales Primary Care Provider [phone] Active Problems Problem Noted Date Diagnosed Date Malignant neoplasm of right female breast, unspecified estrogen receptor status, unspecified site of breast ([facility] V24, [facility] V28) 04/25/2024 Malignant neoplasm of female breast ([facility] V24, [facility] V28) 04/15/2021 Current Treatment and Therapy Plans GOSERELIN (ZOLADEX) 3.6 MG EVERY 4 WEEKS* Plan Start Date:04/25/2024 Plan Provider:Marlena Mayberry, Linked Problems Malignant neoplasm of female breast, unspecified estrogen receptor status, unspecified laterality, unspecified site of breast (CMS/HCC V24, [facility] V28)Malignant neoplasm of right female breast, unspecified estrogen receptor status, unspecified site of breast ([facility] V24, [facility] V28) Treatment Medications goserelin (ZOLADEX) Past Treatment and Therapy Plans No past plan information found.
--- OUTSIDE RECORDS SUMMARY | 2025-03-07 07:34 | XMS_ITS ---
Author Organization [facility] Address [address] [place] [address] Care Team Providers Care Molded Frames Assembler Name Role Phone Vickie Sutton MD Primary Care Provider [phone] Active Problems Problem Noted Date Diagnosed Date Malignant neoplasm of upper- outer quadrant of right breast in female, estrogen receptor positive 10/29/2019 Current Oncology Plans [facility] GOSERELIN 3.6MG (ZOLADEX)* Plan Start Date:09/14/2023 Plan Provider:Marlena Mayberry DO Linked Problems Malignant neoplasm of upper- outer quadrant of right breast in female, estrogen receptor positive (HCC) Treatment Medications goserelin (ZOLADEX) Past Plans ONCOLOGY INFUSION THERAPY Plan Name Start Date Discontinue Date Treatment Medications Discontinue Reason Plan Provider [facility] GOSERELIN 3.6MG (ZOLADEX) 10/06/2022 09/14/2023 goserelin (ZOLADEX) Entered in error Marlena Mayberry DO [facility] GOSERELIN 3.6MG (ZOLADEX) 11/04/2021 10/06/2022 goserelin (ZOLADEX) Entered in error Antonino Das MD Radiation Treatments * No radiation treatments are documented for this patient in [facility]. Treatments may have been administered in another system.
--- OUTSIDE RECORDS SUMMARY | 2025-03-07 07:34 | XMS_ITS | Clinical Summary ---
Author Organization [facility] Address [address] [address] Phone Care Team Providers Care Metal Fabricator Name Role Phone Jillian Rosales Primary Care Provider [phone] Social History Tobacco Use Types Packs/Day Years [...] Not on file Insurance [address] [place], [place] [id number] H[facility] Care Teams Metal Fabricator Relationship Specialty Start Date End Date Jillian Rosales PA [address] [place] [id number] PCP - General Physician Furnace Liner 04/25/23 Additional Source Comments The information contained in this document represents components of the legal health record. It is not the complete legal health record.[facility]
--- OUTSIDE RECORDS SUMMARY | 2025-03-07 07:34 | XMS_ITS | Clinical Summary ---
Author Organization [facility] Address [address] [place] [address] Care Team Providers Care Diamond Driller Helper Name Role Phone Vickie Sutton MD Primary Care Provider [phone] Allergies No known active allergies Medications Medication [...] age to complete this topic Care Teams Diamond Driller Helper Relationship Specialty Start Date End Date Vickie Sutton MD PCP - General Internal Medicine 09/08/23
[2025-03-07 16:35] LABS: Blood Urea Nitrogen 15 mg/dL (9-16); Estimated Glomerular Filt Rate > 60
== END 2025-03-07 13:33 | disposition home or self-care (01) ==
LOC: HO.HMGCLDS 13:32
PROVIDERS: PCP Physician Assistant; Visit Provider Student in an Organized Health Care Education/Training Program
DX: M81.6 Localized osteoporosis [Lequesne] (principal)
CPT/HCPCS: 36415; 82565; 84520

== ENCOUNTER 2025-03-18 07:46 | Outpatient (RCR) | payer OTHER, SELFPAY ==
[2025-03-18 08:07] VITALS: BP 120/84; PULSE 85; RESP 16; TEMP 36.9; O2SAT 99
== END 2025-03-18 08:34 | disposition home or self-care (01) ==
LOC: HO.INF 07:46
PROVIDERS: Visit Provider Student in an Organized Health Care Education/Training Program
DX: M81.6 Localized osteoporosis [Lequesne] (principal)
CPT/HCPCS: 96374; J3489

== ENCOUNTER 2025-03-27 14:52 | Outpatient (AMB) | payer OTHER, SELFPAY ==
--- OUTSIDE RECORDS SUMMARY | 2021-12-30 15:25 | XMS_ITS | Encounter Summary ---
Author Organization [facility] Address [address] [place] [address] Care Team Providers Care Cash Application Representative Name Role Phone Jillian Rosales Primary Care Provider [phone] Encounter Details Date Type Department Care Team [...] Description 12/15/2025 9:00 AM EDT Office Visit [facility] Hematology Oncology [address] [place] [address] Marlena Mayberry, DO [address] [place] [address] documented as of this encounter Visit Diagnoses Not on filedocumented in this encounter Care Teams Cash Application Representative Relationship Specialty Start Date End Date Jillian Rosales PA PCP - General Physician Manager Environmental Services 09/30/21 09/07/23 documented as of this encounter
--- OUTSIDE RECORDS SUMMARY | 2024-03-28 13:24 | XMS_ITS | Encounter Summary ---
Author Organization [facility] Address [address] [place] [address] Care Team Providers Care Electromagnet Crane Operator Name Role Phone Vickie Sutton MD Primary Care Provider [phone] Encounter Details Date Type Department Care Team [...] Description 12/15/2025 9:00 AM EDT Office Visit [facility] Hematology Oncology [address] [place] [address] Marlena Mayberry, DO [address] [place] [address] documented as of this encounter Visit Diagnoses Not on filedocumented in this encounter Care Teams Electromagnet Crane Operator Relationship Specialty Start Date End Date Vickie Sutton MD PCP - General 09/08/23 07/17/24 documented as of this encounter
--- NOTE | 2025-03-27 14:54 | MHC.PC.OV ---
Vital Signs 03/27/25 14:59 Height 5 ft 5 in Weight 190 lb 6 oz BMI 31.7 BP 112/76 Blood Pressure Location Rt brachial Position Sitting Respiration 16 Pulse 98 Pulse Source Pulse Oximeter Temp 97.7 F Temp Source Oral Pulse Oximetry (%) 94 Oxygen Delivery Method Room Air Intake Visit Reasons: f/u blood work Intake Note: f/u blood work Supervisory Civil Engineer Required: No Allergies No Known Allergies Allergy (Verified 03/27/25 14:57) Tobacco use date assessed: 03/27/25 Dental Screening Dental Screen Date: 03/27/25 Did you have a dental visit in the last 12 months?: Yes Did you have a dental problem in the last 6 months where you did not have access to dental care?: No Was dental information given to patient?: Patient has dentist HPI f/u blood work HPI Details Patient is a 48-year-old female with a significant past medical history of breast cancer, melanoma, multinodular goiter, insomnia seasonal allergies, and hypertension presenting today for a follow up. HEENT: At our last visit I did refer her to ENT and she says that she is scheduled but not until August of 2025 for her chronic sinusitis Msk: Continues with multiple joint pains in the neck, hip and back. She states now her left foot at times feels burning. She does not want to undergo any additional workup. She is scheduled with Rheumatology in the beginning of 2025. Her labs did show an elevated sed rate and NICHOLAS. Rheumatoid factor negative. X-rays did not show any signs of arthritis. Endo: Following with endocrinology for her multinodular goiter and osteoporosis. Recently started Reclast. After the Reclast and fusion she did notice flu-like symptoms and significant increased urinary frequency with some right-sided flank pain. Symptoms have some involved. Heme/Onc: Follows with [facility] for management of her right-sided breast cancer. She does get goserelin injections. Derm: She maintains close follow up with Dr. Ybarra at [facility] every 6 months. CV: Blood pressure today in the office is 112/70. She is compliant with hydrochlorothiazide 25 mg. Currently working on a low-fat diet [facility] Medical History (Updated 12/16/24 @ 08:48 by Elba Fleming MD) Subclinical hyperthyroidism Obesity, Class I, BMI 30-34.9 Multinodular goiter Hyperthyroidism HTN (hypertension) Melanoma Fatigue Breast cancer, right Family History Other FH: mental illness Substance use Social History (Updated 03/27/25 @ 14:58 by Johan Rebollar MA) Housing: House Alcohol intake: current Patient Tobacco Use Status: Former Tobacco user Years Smoked: 10 e-Cigarette/Vaping Use: Never Used Second Hand Smoke Exposure: No Substance Use Type: Marijuana service: No Current occupational status: employed 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 [employer] Current occupational exposures/hazards: No Cognitive needs: No Hearing needs: No Vision needs: No Questionnaire Thrive Questionnaire Date Thrive assessed: 10/10/24 I am a: Patient What is your living situation today?: I have a steady place to live Within the past 12 months, did the food you bought not last and you didn't have the money to get more?: Never true Within the past 12 months, did you worry whether your food would run out before you got money to buy more?: Never true Do you have trouble paying for medicines?: No Do you have trouble getting transportation to medical appointments?: No Do you have trouble paying your heating and electricity bill?: No Do you have trouble taking care of your child, family member or friend?: No Do you have trouble with day-to-day activities such as bathing, preparing meals, shopping, managing finances, etc.?: No Are you currently unemployed and looking for a job?: No Are you interested in more education?: No Please select the resources that you would like help with: None Currently or been in a relationship where the following occur: No concerns reported THRIVE Score: 0 ARTIE-7 AMB Questionnaire ARTIE-7 Date ARTIE - 7 assessed: 10/10/24 Source: Developed by Drs. Tom Bsuby, Ekaterina Angel, Eugene Fang and colleagues, with an educational greg from [employer]. Physical exam (Primary Care) Tobacco/Smoking Status: Tobacco use Status Tobacco use date assessed 11/06/24 03/27/25 14:57 Patient Tobacco Use Status Former Tobacco user 03/27/25 14:58 e-Cigarette/Vaping Use Never Used 03/27/25 14:58 Thrive Assessment: Date of Thrive Assessment Date Thrive assessed 10/10/24 03/27/25 14:57 Currently or been in a relationship where the following occur: No concerns reported Const Orientation/consciousness: patient oriented x3 HENMT Ears: hearing grossly normal bilaterally Neck Thyroid: Thyroid normal Lymphatic: no lymphadenopathy noted Resp Auscultation: clear to auscultation bilaterally Cardio Rate: regular rate Rhythm: regular rhythm Heart sounds: S1 normal heart sound present and S2 normal heart sound present GI Inspection: Yes normal to inspection Palpation (GI): Soft to palpation and Other GI palpation findings present (nontender, no cva tenderness) Auscultation: normoactive bowel sounds Rectal Exam - Female: deferred Skin General skin exam: no rashes or lesions noted Neuro General: patient oriented x3, gait normal and no focal motor deficits Coding Level of Care Code Est Pt Level 4 (32076) Complex EM visit Add On G2211 Diagnoses Primary hypertension I10 Hypertension type: primary hypertension Hyperthyroidism E05.90 Polyarthralgia M25.50 NICHOLAS positive R76.8 Assessment & Plan Assessment & Plan (1) HTN (hypertension): Code(s): I10 - Essential (primary) hypertension Category: Medical Qualifiers: Hypertension type: primary hypertension Qualified Code(s): I10 - Essential (primary) hypertension Plan: WNL. Continue current regimen (2) Hyperthyroidism: Code(s): E05.90 - Thyrotoxicosis, unspecified without thyrotoxic crisis or storm Category: Medical Plan: Following with endocrinology (3) Polyarthralgia: Code(s): M25.50 - Pain in unspecified joint Category: Medical Plan: Has referral to Rheumatology. No significant change in symptoms. She will let me know if anything worsens or changes. (4) NICHOLAS positive: Code(s): R76.8 - Other specified abnormal immunological findings in serum Category: Medical Plan: We reviewed labs and imaging. Plan Given Reclast symptoms of increased urinary frequency and urgency and some flank pain we will check labs today. Does not want an ultrasound. No CVA tenderness. Orders: Orders UA CC w/rflx Micro + Cult Today E05.90 - Thyrotoxicosis, unspecified without thyrotoxic crisis or storm, I10 - Essential (primary) hypertension, M25.50 - Pain in unspecified joint, R30.0 - Dysuria, R76.8 - Other specified abnormal immunological findings in serum Basic Metabolic Panel Today E05.90 - Thyrotoxicosis, unspecified without thyrotoxic crisis or storm, I10 - Essential (primary) hypertension, M25.50 - Pain in unspecified joint, R76.8 - Other specified abnormal immunological findings in serum
[2025-03-27 14:59] VITALS: BP 112/76; PULSE 98; RESP 16; TEMP 36.5; O2SAT 94; BMI 31.7
--- OUTSIDE RECORDS SUMMARY | 2025-03-27 18:45 | XMS_ITS | Clinical Summary ---
Author Organization [facility] Address [address] [place] [address] Phone Care Team Providers Care Leader Tier Name Role Phone Jillian Rosales Primary Care Provider [phone] Allergies No known active allergies Medications albuterol [...] of breast ([facility] V24, [facility] V28) 04/25/2024 Malignant neoplasm of female breast ([facility] V24, [facility] V28) 04/15/2021 Encounters Date Type Department Care Team Description 01/13/2025 11:26 AM EDT Anesthesia Event [facility] Endoscopy [address] [place] [address] Reinier Siddiqui MD 01/13/2025 10:08 AM EDT - 01/13/2025 11:59 PM EDT Hospital Encounter [facility] Endoscopy [address] [place] [address] Alexander De La Garza DO Couture, Alison, CRNA Colon cancer screening Discharge Disposition: Home or Self Care from Last 3 Months Immunizations Immunization Administration Dates Next Due Pfizer SARS-CoV-2 COVID-19, mRNA, LNP-S, preservative free 04/20/2021,03/30/2021 Surgical History Surgery Date Site/Laterality Comments BREAST LUMPECTOMY Right Medical History Medical History Date Comments Hypertension Asthma Breast cancer ([facility] V24, [facility] V28) Skin cancer Social History Tobacco [...] Description 12/15/2025 9:00 AM EDT Office Visit [facility] Hematology Oncology [address] [place] [id number] Jena Gonzales, DO [address] [place] [address] Health Maintenance Due Date Last Done Comments [...] Maintenance Results * COLONOSCOPY Anesthesia - MAC; [facility] ENDOSCOPY (01/13/2025 11:40 AM EDT) [...] pathology results. Narrative 01/13/2025 11:41 AM EDT [facility] GI Patient Name: Chanell Thomas Procedure Date: 01/13/2025 10:55 AM Date of : 1975 Age: 49 Gender: Female Note Status: Finalized Attending MD: Alexander De La Garza DO, [id number] Procedure Date No Time: 01/13/2025 Procedure: Colonoscopy [...] the physician, the nurse, the anesthesiologist, the storm window installer and the cadd technician in the pre-procedure area in the [...] retroflexion views. Procedure Code(s): --- Professional --- 61589, Colonoscopy, flexible; with removal of tumor(s), polyp(s), or other lesion(s) by snare technique Diagnosis Code(s): --- Professional --- Z12.11, Encounter for screening for malignant neoplasm of colon K64.9, Unspecified hemorrhoids D12.8, Benign neoplasm of rectum CPT copyright 2020 [employer]. All rights reserved. The codes documented in this report are preliminary and upon sugar presser review may be revised to meet current compliance requirements. ALEXANDER De La Garza DO 01/13/2025 11:40:44 AM This report has been signed electronically.Alexander De La Garza DO Number of Addenda: 0 Note Initiated On: 01/13/2025 10:55 AM Scope Withdrawal Time: 0 hours 6 minutes 15 seconds Scope In: 11:30:55 AM Scope Out: 11:39:12 AM Endoscopy Department at [facility] - [address] [place] [phone] Procedure Note Alexander De La Garza DO - 01/13/2025 [facility] GI Patient Name: Chanell Thomas Procedure Date: 01/13/2025 10:55 AM Date of : 1975 Age: 49 Gender: Female Note Status: Finalized Attending MD: Alexander De La Garza DO, [id number] Procedure Date No Time: 01/13/2025 Procedure: Colonoscopy [...] the physician, the nurse, the anesthesiologist, the storm window installer and thetechnician in the pre-procedure area in [...] retroflexion views. Procedure Code(s): --- Professional --- 72150, Colonoscopy, flexible; with removal of tumor(s), polyp(s), or other lesion(s) by snare technique Diagnosis Code(s): --- Professional --- Z12.11, Encounter for screening for malignantneoplasm of colon K64.9, Unspecified hemorrhoids D12.8, Benign neoplasm of rectum CPT copyright 2020 [employer]. All rights reserved. The codes documented in this report are preliminary and upon sugar presser reviewmay be revised to meet current compliance requirements. ALEXANDER De La Garza DO 01/13/2025 11:40:44 AM This report has been signed electronically.Alexander De La Garza DO Number of Addenda: 0 Note Initiated On: 01/13/2025 10:55 AM Scope Withdrawal Time: 0 hours 6 minutes 15 seconds Scope In: 11:30:55 AM Scope Out: 11:39:12 AM Endoscopy Department at [facility] - [address] [place] [id number] IMPRESSION: - Hemorrhoids found on perianal exam. [...] polyp: Tubular adenoma. 01/14/2025 12:00 PM EDT [facility] Gross Description A. Large Intestine, [...] survive processing. hs/DG 01/14/2025 12:00 PM EDT [facility] Disclaimer Unless otherwise specified, all tissue is 10% NB formalin fixed and paraffin embedded. 01/14/2025 12:00 PM EDT [facility] Tissue Rectum structure / Unknown 01/13/2025 11:37 AM EDT 01/13/2025 1:52 PM EDT us Alexander De La Garza DO LAB PATHOLOGY ORDERABLES Final R esult [facility] [address] [place] [address], * CASSANDRA DEXA AXIAL SKELETON (01/02/2024 7:39 AM EDT) Anatomical Region Laterality Modality Mammography 01/01/2024 1:24 PM EDT Narrative 01/02/2024 7:39 AM EDT [facility] Diagnostic Imaging Department [address] [place] [address] Patient: CHANELL THOMAS /Age/Sex: 1975 - 48 - F Unit#: [id number] Location/Status: SPDIMAM/REG CLI [facility]em[facility] Ordering Physician: JENA GONZALES [facility] Dexa Axial Skeleton - 01/01/24 - 1342 [...] probability of hip fracture of 0.5%. Code 06917 Dictating Physician: CAMILLA WEBB MD Electronically Signed by: CAMILLA WBEB MD Dic Date/Time: 01/02/24737 Sign date/Time: 01/02/24738 Procedure Note Camilla Webb MD - 03/20/2024 [facility] Diagnostic Imaging Department [address] [place] [address] Patient: CHANELL THOMAS /Age/Sex: 1975 - 48 - F Unit#: [id number] [facility] Ordering Physician: JENA GONZALES [facility] Dexa Axial [...] density of the femurs bilaterally is 0.948 gm/wb8yegbh is 94% of that of young normals [...] probability of hip fracture of 0.5%. Code 35532 Dictating Physician: CAMILLA WEBB MD Electronically Signed by: CAMILLA WEBB MD Dic Date/Time: 01/02/24737 Sign date/Time: 01/02/24738 Jena Gonzales DO IMG BI PROCEDURES Fin al Result from Last 3 Months or Most Recently Relevant to Health Maintenance Insurance [facility] Care Teams Leader Tier Relationship Specialty Start Date End Date Jillian Rosales PA [address] [place] [address] PCP - General Physician Manpower Development Advisor 01/13/25
--- OUTSIDE RECORDS SUMMARY | 2025-03-27 18:45 | XMS_ITS | Continuity of Care Document ---
Author Organization [facility] [address] [place] [address] Phone [phone] Care Team Providers Care Clin Nurse Spec Name Role Phone Kenzi. PETTY Rosales Care Team Information Surveillance Sensor Officer [phone] Problems Active Problems Provider Date Carcinoma of [...]
--- OUTSIDE RECORDS SUMMARY | 2025-03-27 18:45 | XMS_ITS | Clinical Summary ---
Author Organization [facility] Address [address] [address] Phone Care Team Providers Care Salesperson Art Objects Name Role Phone Jillian Rosales Primary Care Provider [phone] Social History Tobacco Use Types Packs/Day Years [...] 2021 INFLUENZA VACCINE (#1) 2025 COVID-19 VACCINE (2024-2 6 season) 2025 HEPATITIS A VACCINES Aged Out [...] Not on file Insurance [address] [place], [place] [id number] [facility] Care Teams Salesperson Art Objects Relationship Specialty Start Date End Date Jillian Rosales PA [address] [place] [id number] PCP - General Physician Cloth Printing Back Tender 04/25/23 Additional Source Comments The information contained in this document represents components of the legal health record. It is not the complete legal health record.[facility]
--- OUTSIDE RECORDS SUMMARY | 2025-03-27 18:45 | XMS_ITS | Clinical Summary ---
Author Organization [facility] Address [address] [place] [address] Care Team Providers Care Sock Drier Name Role Phone Vickie Sutton MD Primary Care Provider [phone] Allergies No known active allergies Medications Medication [...] age to complete this topic Care Teams Sock Drier Relationship Specialty Start Date End Date Vickie Sutton MD PCP - General Internal Medicine 09/08/23
--- OUTSIDE RECORDS SUMMARY | 2025-03-27 18:45 | XMS_ITS ---
Author Organization [facility] Address [address] [place] [address] Care Team Providers Care Printed Circuit Board Reworker Name Role Phone Vickie Sutton MD Primary Care Provider Active Problems Problem Noted Date Diagnosed Date Malignant neoplasm of upper- outer quadrant of right breast in female, estrogen receptor positive 10/29/2019 Current Oncology Plans [facility] GOSERELIN 3.6MG (ZOLADEX)* Plan Start Date:09/14/2023 Plan Provider:Marlena Mayberry DO Linked Problems Malignant neoplasm of upper- outer quadrant of right breast in female, estrogen receptor positive (HCC) Treatment Medications goserelin (ZOLADEX) Past Plans ONCOLOGY INFUSION THERAPY Plan Name Start Date Discontinue Date Treatment Medications Discontinue Reason Plan Provider [facility] GOSERELIN 3.6MG (ZOLADEX) 10/06/2022 09/14/2023 goserelin (ZOLADEX) Entered in error Marlena Mayberry DO [facility] GOSERELIN 3.6MG (ZOLADEX) 11/04/2021 10/06/2022 goserelin (ZOLADEX) Entered in error Antonino Das MD Radiation Treatments * No radiation treatments are documented for this patient in [facility]. Treatments may have been administered in another system.
--- OUTSIDE RECORDS SUMMARY | 2025-03-27 18:45 | XMS_ITS ---
Author Organization [facility] Address [address] [place] [address] Phone Care Team Providers Care Wire Frame Lampshade Maker Name Role Phone Jillian Rosales Primary Care Provider [phone] Active Problems Problem Noted Date Diagnosed Date Malignant neoplasm of right female breast, unspecified estrogen receptor status, unspecified site of breast ([facility] V24, [facility] V28) 04/25/2024 Malignant neoplasm of female breast ([facility] V24, [facility] V28) 04/15/2021 Current Treatment and Therapy Plans GOSERELIN (ZOLADEX) 3.6 MG EVERY 4 WEEKS* Plan Start Date:04/25/2024 Plan Provider:Marlena Mayberry, Linked Problems Malignant neoplasm of female breast, unspecified estrogen receptor status, unspecified laterality, unspecified site of breast (CMS/HCC V24, CMS/[facility] V28)Malignant neoplasm of right female breast, unspecified estrogen receptor status, unspecified site of breast (CMS/[facility] V24, CMS/[facility] V28) Treatment Medications goserelin (ZOLADEX) Past Treatment and Therapy Plans No past plan information found.
== END 2025-03-27 15:41 | disposition home or self-care (01) ==
LOC: HO.HMCFM 14:53
PROVIDERS: PCP Physician Assistant; Visit Provider Physician Assistant
DX: I10 Essential (primary) hypertension (principal); E05.90 Thyrotoxicosis, unspecified without thyrotoxic crisis or storm; M25.50 Pain in unspecified joint; R76.89 Other specified abnormal immunological findings in serum

== ENCOUNTER 2025-04-21 06:31 | Outpatient (REF) | payer OTHER, SELFPAY ==
--- OUTSIDE RECORDS SUMMARY | 2021-12-30 14:25 | XMS_ITS | Encounter Summary ---
Author Organization [facility] Address [address] [place] [address] Care Team Providers Care Weatherization Technician Name Role Phone Jillian Rosales Primary Care Provider [phone] Encounter Details Date Type Department Care Team [...] Description 12/15/2025 9:00 AM EDT Office Visit [facility] Hematology Oncology [address] [place] [address] Marlena Mayberry, DO [address] [place] [address] documented as of this encounter Visit Diagnoses Not on filedocumented in this encounter Care Teams Weatherization Technician Relationship Specialty Start Date End Date Jillian Rosales PA PCP - General Physician Brick Offbearer 09/30/21 09/07/23 documented as of this encounter
--- OUTSIDE RECORDS SUMMARY | 2024-03-28 12:24 | XMS_ITS | Encounter Summary ---
Author Organization [facility] Address [address] [place] [address] Care Team Providers Care Endoscopy Tech Name Role Phone Vickie Sutton MD Primary Care Provider [phone] Encounter Details Date Type Department Care Team [...] Description 12/15/2025 9:00 AM EDT Office Visit [facility] Hematology Oncology [address] [place] [address] Marlena Mayberry, DO [address] [place] [address] documented as of this encounter Visit Diagnoses Not on filedocumented in this encounter Care Teams Endoscopy Tech Relationship Specialty Start Date End Date Vickie Sutton MD PCP - General 09/08/23 07/17/24 documented as of this encounter
--- OUTSIDE RECORDS SUMMARY | 2025-04-21 06:36 | XMS_ITS | Clinical Summary ---
Author Organization [facility] Address [address] [place] [address] Care Team Providers Care Mechanical Detailer Name Role Phone Vickie Sutton MD Primary Care Provider [phone] Allergies No known active allergies Medications Medication [...] age to complete this topic Care Teams Mechanical Detailer Relationship Specialty Start Date End Date Vickie Sutton MD PCP - General Internal Medicine 09/08/23
--- OUTSIDE RECORDS SUMMARY | 2025-04-21 06:36 | XMS_ITS ---
Author Organization [facility] Address [address] [place] [address] Phone Care Team Providers Care Fruit And Vegetable Inspector Name Role Phone Jillian Rosales Primary Care Provider [phone] Active Problems Problem Noted Date Diagnosed Date Malignant neoplasm of right female breast, unspecified estrogen receptor status, unspecified site of breast ([facility] V24, [facility] V28) 04/25/2024 Malignant neoplasm of female breast ([facility] V24, [facility] V28) 04/15/2021 Current Treatment and Therapy Plans GOSERELIN (ZOLADEX) 3.6 MG EVERY 4 WEEKS* Plan Start Date:04/25/2024 Plan Provider:Marlena Mayberry, Linked Problems Malignant neoplasm of female breast, unspecified estrogen receptor status, unspecified laterality, unspecified site of breast (CMS/HCC V24, CMS/[facility] V28)Malignant neoplasm of right female breast, unspecified estrogen receptor status, unspecified site of breast ([facility] V24, [facility] V28) Treatment Medications goserelin (ZOLADEX) Past Treatment and Therapy Plans No past plan information found.
--- OUTSIDE RECORDS SUMMARY | 2025-04-21 06:36 | XMS_ITS ---
Author Organization [facility] Address [address] [place] [address] Care Team Providers Care Caltrans Equipment Operator Name Role Phone Vickie Sutton MD Primary Care Provider [phone] Active Problems Problem Noted Date Diagnosed Date Malignant neoplasm of upper- outer quadrant of right breast in female, estrogen receptor positive 10/29/2019 Current Oncology Plans [facility] GOSERELIN 3.6MG (ZOLADEX)* Plan Start Date:09/14/2023 Plan Provider:Marlena Mayberry DO Linked Problems Malignant neoplasm of upper- outer quadrant of right breast in female, estrogen receptor positive (HCC) Treatment Medications goserelin (ZOLADEX) Past Plans ONCOLOGY INFUSION THERAPY Plan Name Start Date Discontinue Date Treatment Medications Discontinue Reason Plan Provider [facility] GOSERELIN 3.6MG (ZOLADEX) 10/06/2022 09/14/2023 goserelin (ZOLADEX) Entered in error Marlena Mayberry DO [facility] GOSERELIN 3.6MG (ZOLADEX) 11/04/2021 10/06/2022 goserelin (ZOLADEX) Entered in error Antonino Das MD Radiation Treatments * No radiation treatments are documented for this patient in [facility]. Treatments may have been administered in another system.
--- OUTSIDE RECORDS SUMMARY | 2025-04-21 06:36 | XMS_ITS | Clinical Summary ---
Author Organization [facility] Address [address] [address] Phone Care Team Providers Care Theatre Professor Name Role Phone Jillian Rosales Primary Care Provider [phone] Social History Tobacco Use Types Packs/Day Years [...] patient's age to complete this topic IPV VACCINES Aged Out No longer eligi ble [...] Devices Not on file Insurance O O HMO [address] [place] [address] [place], [place] [id number] Care Teams Theatre Professor Relationship Specialty Start Date End Date Jillian Rosales PA [address] [place] [address] PCP - General Physician Video Poker Floorman 04/25/23 Additional Source Comments The information contained in this document represents components of the legal health record. It is not the complete legal health record.[facility]
--- OUTSIDE RECORDS SUMMARY | 2025-04-21 06:36 | XMS_ITS | Continuity of Care Document ---
Author Organization [facility] [address] [place] [address] Phone [phone] Care Team Providers Care Store Receiver Name Role Phone Kenzi. PETTY Rosales Care Team Information Secretary Office Clerk [phone] Problems Active Problems Provider Date Carcinoma of [...]
--- OUTSIDE RECORDS SUMMARY | 2025-04-21 06:36 | XMS_ITS | Clinical Summary ---
Author Organization [facility] Address [address] [place] [phone] Phone Care Team Providers Care Limousine And Hearse Upholsterer Name Role Phone Jillian Rosales Primary Care Provider [phone] Allergies No known active allergies Medications albuterol [...] estrogen receptor status, unspecified site of breast ([facility] V24, [facility] V28) 04/25/2024 Malignant neoplasm of female breast ([facility] V24, [facility] V28) 04/15/2021 Immunizations Immunization Administration Dates Next Due Pfizer SARS-CoV-2 COVID-19, mRNA, LNP-S, preservative free 04/20/2021,03/30/2021 Surgical History Surgery Date Site/Laterality Comments BREAST LUMPECTOMY Right Medical History Medical History Date Comments Hypertension Asthma Breast cancer ([facility] V24, [facility] V28) Skin cancer Social History Tobacco Use [...] Description 12/15/2025 9:00 AM EDT Office Visit [facility] Hematology Oncology [address] [place] [address] Jena Gonzales, DO [address] [place] [address] Health Maintenance Due Date Last Done Comments [...] 01/13/2025 11:40 AM EDT Colon cancer screening [facility] DEXA AXIAL SKELETON Routine 01/02/2024 7:39 AM EDT Other specified disorders of bone density and structure, other site from Last 3 Months or Most Recently Relevant to Health Maintenance Results * COLONOSCOPY Anesthesia - MAC; [facility] ENDOSCOPY (01/13/2025 11:40 AM EDT) [...] pathology results. Narrative 01/13/2025 11:41 AM EDT [facility] GI Patient Name: Chanell Thomas Procedure Date: 01/13/2025 10:55 AM Date of : 1975 Age: 49 Gender: Female Note Status: Finalized Attending MD: Alexander De La Garza DO, [id number] Procedure Date No Time: 01/13/2025 Procedure: Colonoscopy Indications: Screening for colorectal malignant neoplasm Providers: Alexander DeL a Garza DO Referring MD: Alexander De La [...] the physician, the nurse, the anesthesiologist, the switchboard wire worker helper and the windows deployment technician in the pre-procedure area in the [...] retroflexion views. Procedure Code(s): --- Professional --- 79444, Colonoscopy, flexible; with removal of tumor(s), polyp(s), or other lesion(s) by snare technique Diagnosis Code(s): --- Professional --- Z12.11, Encounter for screening for malignant neoplasm of colon K64.9, Unspecified hemorrhoids D12.8, Benign neoplasm of rectum CPT copyright 2020 [employer]. All rights reserved. The codes documented in this report are preliminary and upon federal court of appeals law clerk review may be revised to meet current compliance requirements. ALEXANDER De La Garza DO 01/13/2025 11:40:44 AM This report has been signed electronically.Alexander De La Garza DO Number of Addenda: 0 Note Initiated On: 01/13/2025 10:55 AM Scope Withdrawal Time: 0 hours 6 minutes 15 seconds Scope In: 11:30:55 AM Scope Out: 11:39:12 AM Endoscopy Department at [facility] - [address] [place] [phone] Procedure Note Alexander De La Garza DO - 01/13/2025 [facility] GI Patient Name: Chanell Thomas Procedure Date: 01/13/2025 10:55 AM Date of : 1975 Age: 49 Gender: Female Note Status: Finalized Attending MD: Alexander De La Garza DO, [id number] Procedure Date No Time: 01/13/2025 Procedure: Colonoscopy [...] the physician, the nurse, the anesthesiologist, the switchboard wire worker helper and thetechnician in the pre-procedure area in [...] retroflexion views. Procedure Code(s): --- Professional --- 38448, Colonoscopy, flexible; with removal of tumor(s), polyp(s), or other lesion(s) by snare technique Diagnosis Code(s): --- Professional --- Z12.11, Encounter for screening for malignantneoplasm of colon K64.9, Unspecified hemorrhoids D12.8, Benign neoplasm of rectum CPT copyright 2020 [employer]. All rights reserved. The codes documented in this report are preliminary and upon federal court of appeals law clerk reviewmay be revised to meet current compliance requirements. ALEXANDER De La Garza DO 01/13/2025 11:40:44 AM This report has been signed electronically.Alexander De La Garza DO Number of Addenda: 0 Note Initiated On: 01/13/2025 10:55 AM Scope Withdrawal Time: 0 hours 6 minutes 15 seconds Scope In: 11:30:55 AM Scope Out: 11:39:12 AM Endoscopy Department at [facility] - [address] [place] [phone] IMPRESSION: - Hemorrhoids found on perianal exam. [...] DO GI~PROCEDURE ORDERABLES Final Re sult * CASSANDRA DEXA AXIAL SKELETON (01/02/2024 7:39 AM EDT) Anatomical Region Laterality Modality Mammography 01/01/2024 1:24 PM EDT Narrative 01/02/2024 7:[address] [facility] Diagnostic Imaging Department [address] [place] [address] Patient: CHANELL THOMAS /Age/Sex: 1975 - 48 - F Unit#: [id number] Location/Status: [facility] Mnemonic/Ordering [facility] Ordering Physician: JENA GONZALES Cassandra Dexa [...] probability of hip fracture of 0.5%. Code 89240 Dictating Physician: CAMILLA WEBB MD Electronically Signed by: CAMILLA WEBB MD Dic Date/Time: 01/02/24737 Sign date/Time: 01/02/24738 Procedure Note Camilla Webb MD - 03/20/2024 [facility] Diagnostic Imaging Department [address] [place] [address] Patient: CHANELL THOMAS /Age/Sex: 1975 - 48 - F Unit#: [id number] [facility] Mnemonic/Ordering Site: [facility] Ordering Physician: JENA GONZALES Cassandra Dexa [...] density of the femurs bilaterally is 0.948 gm/vm7brhss is 94% of that of young normals [...] probability of hip fracture of 0.5%. Code 87298 Dictating Physician: CAMILLA WEBB MD Electronically Signed by: CAMILLA WEBB MD Dic Date/Time: 01/02/24737 Sign date/Time: 01/02/24738 Jena Gonzales DO IMG BI PROCEDURES Fin al Result from Last 3 Months or Most Recently Relevant to Health Maintenance Insurance [facility] [address] [place] [address] Care Teams Limousine And Hearse Upholsterer Relationship Specialty Start Date End Date Jillian Rosales PA [address] [place] [address] PCP - General Physician Winch Stripper 01/13/25
[2025-04-21 10:14] LABS: Appearance Urine Clear; Glucose Urine UA Negative (Negative); PH 7.5 (5.0-9.0); Specific Gravity - Urine >= 1.030 (1.005-1.025); UMIC TRIGGER UACC YES
[2025-04-21 11:01] LABS: Anion Gap 12 (12-20); Blood Urea Nitrogen 20 mg/dL (9-16); Calcium 9.0 mg/dL (8.4-10.2); Carbon Dioxide 26 mmol/L (22-29); Chloride 107 mmol/L (96-108); Estimated Glomerular Filt Rate > 60; Potassium 3.5 mmol/L (3.3-5.1); Sodium 141 mmol/L (135-145)
== END 2025-04-21 06:32 | disposition home or self-care (01) ==
LOC: HO.HMGCLDS 06:31
PROVIDERS: PCP Physician Assistant; Visit Provider Physician Assistant
DX: I10 Essential (primary) hypertension (principal); E05.90 Thyrotoxicosis, unspecified without thyrotoxic crisis or storm; M25.50 Pain in unspecified joint; R76.89 Other specified abnormal immunological findings in serum
CPT/HCPCS: 36415; 80048; 81001

== ENCOUNTER 2025-04-30 07:57 | Outpatient (AMB) | payer OTHER, SELFPAY ==
--- OUTSIDE RECORDS SUMMARY | 2021-12-30 14:25 | XMS_ITS | Encounter Summary ---
Author Organization [facility] Address [address] [place] [address] Care Team Providers Care Missile Tracking Technician Name Role Phone Jillian Rosales Primary Care Provider [phone] Encounter Details Date Type Department Care Team (Late Contact Info) Description 12/30/2021 3:25 PM EDT Hospital Encounter TH HISTORIC ENCOUNTERS EASTERN CONVERSION ONLY Social History Tobacco Use Types Packs/Day Years Used Date Smoking Tobacco: Former Cigarettes Alcohol Use Standard Drinks/Week Comments Not Currently 0 (1 standard drink = 0.6 oz pur e alcohol) Interpersonal Safety Answer Date Record ed Physical Abuse Unrecognized value 01/13/2025 Verbal Abuse Unrecognized value 01/13/2025 Comments No Sex and Gender Information Value Date Recorded Sex Assigned at Female 06/20/2024 1:11 PM EST Legal Sex Female 6:23 AM EST Gender Identity Female 06/20/2024 1:11 PM EST Sexual Orientation Straight 10/10/2024 1: 31 PM EDT documented as of this encounter Last Filed Vital Signs Vital Sign Reading Time Taken Comments Blood Pressure - - Pulse - - Temperature - - Respiratory Rate - - Oxygen Saturation - - Inhaled Oxygen Concentration - - Weight 86.6 kg (191 lb) 11/21/2023 1:48 PM EDT Height 165.1 cm (5' 5 ) 11/21/2023 1:48 PM EDT Body Mass Index 31.78 11/21/2023 1:48 PM EDT documented in this encounter Plan of Treatment Upcoming Encounters Date Type Department Care Team (Late st Contact Info) Description 12/15/2025 9:00 AM EDT Office Visit [facility] Hematology Oncology [address] [place] [address] Marlena Mayberry, DO [address] [place] [address] documented as of this encounter Visit Diagnoses Not on filedocumented in this encounter Care Teams Missile Tracking Technician Relationship Specialty Start Date End Date Jillian Rosales PA PCP - General Physician River Tester 09/30/21 09/07/23 documented as of this encounter
--- OUTSIDE RECORDS SUMMARY | 2024-03-28 12:24 | XMS_ITS | Encounter Summary ---
Author Organization [facility] Address [address] [place] [address] Care Team Providers Care Customer Account Manager Name Role Phone Vickie Sutton MD Primary Care Provider [phone] Encounter Details Date Type Department Care Team (Late st Contact Info) Description 03/28/2024 1:24 PM EDT Hospital Encounter TH HISTORIC ENCOUNTERS [...] 1:48 PM EDT documented in this encounter Progress Notes * Historical, Notes Results - 03/28/2024 1:30 PM EDT Arrived amb for zoladex. Stable assessment. Tolerating treatment with hot flashes. Pt is hopefull she will be able to stop this treatment soon, she sees Dr. Mayberry in Jun 2024, and that will be 5 years since her diagnosis 1345 Zoladex administered into right abd, well tolerated. Next appt scheduled for 4 weeks. Left amb, stable at D/C. documented in this encounter Plan of Treatment Upcoming Encounters Date Type Department Care Team (Late st Contact Info) Description 12/15/2025 9:00 AM EDT Office Visit [facility] Hematology Oncology [address] [place] [address] Marlena Mayberry, DO [address] [place] [address] documented as of this encounter Visit Diagnoses Not on filedocumented in this encounter Care Teams Customer Account Manager Relationship Specialty Start Date End Date Vickie Sutton MD PCP - General 09/08/23 07/17/24 documented as of this encounter
--- NOTE | 2025-04-30 08:02 | MHC.PC.OV ---
Vital Signs 04/30/25 08:04 Weight 186 lb 2 oz BP 108/84 Blood Pressure Location Rt brachial Position Sitting Respiration 14 Pulse 93 Pulse Source Pulse Oximeter Pulse Oximetry (%) 98 Oxygen Delivery Method Room Air Intake Visit Reasons: ANNUAL PE - see comments Intake Note: Physical Surface Supervisor Required: No Allergies No Known Allergies Allergy (Verified 04/30/25 08:04) Tobacco use date assessed: 04/30/25 Dental Screening Dental Screen Date: 03/27/25 HPI ANNUAL PE - see comments HPI Details Patient is a 49-year-old female with a significant past medical history of breast cancer, melanoma, multinodular goiter, insomnia seasonal allergies, and hypertension presenting today for a cpe HEENT: She is referred to ENT and she says that she is scheduled but not until August of 2025 for her chronic sinusitis Msk: Continues with multiple joint pains in the neck, hip and back. She states now her left foot at times feels burning. She does not want to undergo any additional workup. She is scheduled with Rheumatology in the beginning of 2025. Her labs did show an elevated sed rate and NICHOLAS. Rheumatoid factor negative. X-rays did not show any signs of arthritis. Endo: Following with endocrinology for her multinodular goiter and osteoporosis. Recently started Reclast. After the Reclast and fusion she did notice flu-like symptoms and significant increased urinary frequency with some right-sided flank pain. Symptoms have resolved. Heme/Onc: Follows with [facility], Dr. Mayberry for management of her right-sided breast cancer history. history of right breast cancer s/p lumpectomy, radiation, and then was on tamoxifen for a year and a half sometime around 2018, 2019, then break for 6 months, then goserelin monthly shots for 3 years or so from 2021 to September 2024, now done with therapy Derm: She maintains close follow up with Dr. Ybarra at [facility] every 6 months. Last seen 12/27. CV: Blood pressure today in the office is 108/84. She is compliant with hydrochlorothiazide 25 mg. Currently working on a low-fat diet Colonoscopy: summer 2024, due in 2027 Pap: 03/2023- utd, scheduled [facility]: scheduled 05/29 bone density: [facility] Medical History (Updated 04/30/25 @ 08:21 by Jillian Rosales PA-C) Subclinical hyperthyroidism Obesity, Class I, BMI 30-34.9 Multinodular goiter Hyperthyroidism HTN (hypertension) Melanoma Fatigue Breast cancer, right Family History Other FH: mental illness Substance use Social History (Updated 03/27/25 @ 14:58 by Johan Rebollar CMA) Housing: House Alcohol intake: current Patient Tobacco Use Status: Former Tobacco user Years Smoked: 10 e-Cigarette/Vaping Use: Never Used Second Hand Smoke Exposure: No Substance Use Type: Former Substance User and Marijuana service: No Current occupational status: employed 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 [employer] Current occupational exposures/hazards: No Cognitive needs: No Hearing needs: No Vision needs: No Questionnaire Thrive Questionnaire Date Thrive assessed: 10/10/24 I am a: Patient What is your living situation today?: I have a steady place to live Within the past 12 months, did the food you bought not last and you didn't have the money to get more?: Never true Within the past 12 months, did you worry whether your food would run out before you got money to buy more?: Never true Do you have trouble paying for medicines?: No Do you have trouble getting transportation to medical appointments?: No Do you have trouble paying your heating and electricity bill?: No Do you have trouble taking care of your child, family member or friend?: No Do you have trouble with day-to-day activities such as bathing, preparing meals, shopping, managing finances, etc.?: No Are you currently unemployed and looking for a job?: No Are you interested in more education?: No Please select the resources that you would like help with: None Currently or been in a relationship where the following occur: No concerns reported THRIVE Score: 0 ARTIE-7 AMB Questionnaire ARTIE-7 Date ARTIE - 7 assessed: 10/10/24 Source: Developed by Drs. Tom Busby, Ekaterina Angel, Eugene Fang and colleagues, with an educational greg from [employer]. Physical exam (Primary Care) Vital Signs: Last Vital Signs Pulse 93 04/30/25 08:04 Resp 14 04/30/25 08:04 BP 108/84 04/30/25 08:04 Pulse Ox 98 04/30/25 08:04 Oxygen Delivery Method Room Air 04/30/25 08:04 Tobacco/Smoking Status: Tobacco use Status Tobacco use date assessed 03/27/25 04/30/25 08:03 Patient Tobacco Use Status Former Tobacco user 04/30/25 08:03 e-Cigarette/Vaping Use Never Used 04/30/25 08:03 Thrive Assessment: Date of Thrive Assessment Date Thrive assessed 10/10/24 04/30/25 08:03 Currently or been in a relationship where the following occur: No concerns reported Const Orientation/consciousness: patient oriented x3 HENMT Ears: hearing grossly normal bilaterally and TM's normal bilaterally General nose exam: No nasal polyps present Face and sinus: Yes sinuses nontender Mouth: Normal oral and palatal mucosa present Eyes Pupils: Equal, round and reactive pupils present EOM: EOMs intact bilaterally Neck Neck: Yes full ROM and Yes no lymphadenopathy Thyroid: diffusely enlarged and multiple palpable nodules Chest Chest palpation & inspection: normal inspection of the chest Resp Auscultation: clear to auscultation bilaterally Cardio Rate: regular rate Rhythm: regular rhythm Heart sounds: S1 normal heart sound present and S2 normal heart sound present Peripheral pulses: Peripheral pulses 2+ throughout GI Other: Soft, nontender Auscultation: normal bowel sounds Rectal Exam - Female: deferred General: Yes no CVA tenderness Back/Spine/Pelvis Other: Nontender Back: no CVA tenderness Skin General skin exam: no rashes or lesions noted Neuro General: patient oriented x3, gait normal, CN's II-XI intact bilaterally and deep tendon reflexes 2+ bilaterally Cranial nerves: Yes Equal, round and reactive pupils present Motor exam (neuro): 5/5 motor strength present throughout Sensory Exam: double simultaneous stimulation for sensation normal Coordination: otewur-sb-zrtp test normal and Romberg test negative Extrem General: Yes normal to inspection and Yes full ROM Psych Affect: normal affect Attitude: cooperative Thought process: Normal thought process present Thought content: Normal thought content present Insight: Good insight present (Psych) Judgement: Good judgement present (Psych) Results Reviewed Results Reviewed: Laboratory Tests 10/01/24 11/06/24 12/16/24 07:37 09:34 09:14 WBC 5.3 RBC 4.86 Hgb 13.6 Hct 41.0 Plt Count 270 Sodium Potassium Chloride Carbon Dioxide Anion Gap BUN Creatinine Estim Creat Clear Calc Estimated GFR Random Glucose Triglycerides 162 H Cholesterol 224 H LDL Cholesterol, Calc 149 H HDL Cholesterol 43 TSH 0.13 L Free T4 0.98 Total T3 91 Thyroid Stim Immunoglob <89 03/07/25 04/21/25 13:35 06:41 WBC RBC Hgb Hct Plt Count Sodium 141 Potassium 3.5 Chloride 107 Carbon Dioxide 26 Anion Gap 12 BUN 15 20 H Creatinine 0.84 0.78 Estim Creat Clear Calc Not Reportable Estimated GFR > 60 > 60 Random Glucose 105 Triglycerides Cholesterol LDL Cholesterol, Calc HDL Cholesterol TSH Free T4 Total T3 Thyroid Stim Immunoglob Coding Level of Care Code Est Pt Prev Care 40-64y([address]) Diagnoses Routine general medical examination at a health care facility Z00.00 Primary hypertension I10 Hypertension type: primary hypertension Hyperthyroidism E05.90 Mixed hyperlipidemia E78.2 Hyperlipidemia type: mixed hyperlipidemia Prediabetes R73.03 Assessment & Plan Assessment & Plan (1) Routine general medical examination at a [facility] care facility: Code(s): Z00.00 - Encounter for general adult medical examination without abnormal findings Plan: Reviewed health maintenance Labs ordered (2) HTN (hypertension): Code(s): I10 - Essential (primary) hypertension Category: Medical Qualifiers: Hypertension type: primary hypertension Qualified Code(s): I10 - Essential (primary) hypertension Plan: WNL. Continue current regimen (3) Hyperthyroidism: Code(s): E05.90 - Thyrotoxicosis, unspecified without thyrotoxic crisis or storm Category: Medical Plan: Following with endocrinology (4) Hyperlipidemia: Code(s): E78.5 - Hyperlipidemia, unspecified Category: Medical Qualifiers: Hyperlipidemia type: mixed hyperlipidemia Qualified Code(s): E78.2 - Mixed hyperlipidemia Plan: Monitoring her diet Does not like the idea of cholesterol medication (5) Prediabetes: Code(s): R73.03 - Prediabetes Category: Medical Plan: We will monitor Orders: Orders Lipid Panel Today C43.9 - Malignant melanoma of skin, unspecified, E05.90 - Thyrotoxicosis, unspecified without thyrotoxic crisis or storm, E78.2 - Mixed hyperlipidemia, I10 - Essential (primary) hypertension, R73.03 - Prediabetes Comprehensive Norris. Panel Fast Today C43.9 - Malignant melanoma of skin, unspecified, E05.90 - Thyrotoxicosis, unspecified without thyrotoxic crisis or storm, E78.2 - Mixed hyperlipidemia, I10 - Essential (primary) hypertension, R73.03 - Prediabetes Complete Blood Count Auto Diff Today C43.9 - Malignant melanoma of skin, unspecified, E05.90 - Thyrotoxicosis, unspecified without thyrotoxic crisis or storm, E78.2 - Mixed hyperlipidemia, I10 - Essential (primary) hypertension, R73.03 - Prediabetes Hemoglobin A1c Today C43.9 - Malignant melanoma of skin, unspecified, E05.90 - Thyrotoxicosis, unspecified without thyrotoxic crisis or storm, E78.2 - Mixed hyperlipidemia, I10 - Essential (primary) hypertension, R73.01 - Impaired fasting glucose, R73.03 - Prediabetes Microalbumin, Random (w Creat) Today C43.9 - Malignant melanoma of skin, unspecified, E05.90 - Thyrotoxicosis, unspecified without thyrotoxic crisis or storm, E78.2 - Mixed hyperlipidemia, I10 - Essential (primary) hypertension, R73.03 - Prediabetes UA CC w/rflx Micro + Cult Today C43.9 - Malignant melanoma of skin, unspecified, E05.90 - Thyrotoxicosis, unspecified without thyrotoxic crisis or storm, E78.2 - Mixed hyperlipidemia, I10 - Essential (primary) hypertension, R30.0 - Dysuria, R73.03 - Prediabetes
[2025-04-30 08:04] VITALS: BP 108/84; PULSE 93; RESP 14; O2SAT 98
--- OUTSIDE RECORDS SUMMARY | 2025-04-30 08:05 | XMS_ITS ---
Author Organization [facility] Address [address] [place] [address] Care Team Providers Care Floor Manager Name Role Phone Vickie Sutton MD Primary Care Provider [phone] Active Problems Problem Noted Date Diagnosed Date Malignant neoplasm of upper- outer quadrant of right breast in female, estrogen receptor positive 10/29/2019 Current Oncology Plans [facility] GOSERELIN 3.6MG (ZOLADEX)* Plan Start Date:09/14/2023 Plan Provider:Marlena Mayberry DO Linked Problems Malignant neoplasm of upper- outer quadrant of right breast in female, estrogen receptor positive (HCC) Treatment Medications goserelin (ZOLADEX) Past Plans ONCOLOGY INFUSION THERAPY Plan Name Start Date Discontinue Date Treatment Medications Discontinue Reason Plan Provider [facility] GOSERELIN 3.6MG (ZOLADEX) 10/06/2022 09/14/2023 goserelin (ZOLADEX) Entered in error Marlena Mayberry DO [facility] GOSERELIN 3.6MG (ZOLADEX) 11/04/2021 10/06/2022 goserelin (ZOLADEX) Entered in error Antonino Das MD Radiation Treatments * No radiation treatments are documented for this patient in [facility]. Treatments may have been administered in another system.
--- OUTSIDE RECORDS SUMMARY | 2025-04-30 08:05 | XMS_ITS | Clinical Summary ---
Author Organization [facility] Address [address] [place] [address] Care Team Providers Care Overhead Crane Technician Name Role Phone Vickie Sutton MD Primary Care Provider [phone] Allergies No known active allergies Medications Medication [...] age to complete this topic Care Teams Overhead Crane Technician Relationship Specialty Start Date End Date Vickie Sutton MD PCP - General Internal Medicine 09/08/23
--- OUTSIDE RECORDS SUMMARY | 2025-04-30 08:05 | XMS_ITS | Clinical Summary ---
Author Organization [facility] Address [address] [address] Phone Care Team Providers Care Stranner Name Role Phone Jillian Rosales Primary Care Provider [phone] Social History Tobacco Use Types Packs/Day Years [...] Not on file Insurance [address] [place], [place] [id number] Care Teams Stranner Relationship Specialty Start Date End Date Jillian Rosales PA [address] [place] [id number] PCP - General Physician Leases And Land Supervisor 04/25/23 Additional Source Comments The information contained in this document represents components of the legal health record. It is not the complete legal health record.[facility]
--- OUTSIDE RECORDS SUMMARY | 2025-04-30 08:05 | XMS_ITS | Clinical Summary ---
Author Organization [facility] Address [address] [place] [id number] Phone Care Team Providers Care Participant Administrator Name Role Phone Jillian Rosales Primary Care Provider [phone] Allergies No known active allergies Medications albuterol [...] estrogen receptor status, unspecified site of breast ([facility] V24, [facility] V28) 04/25/2024 Malignant neoplasm of female breast ([facility] V24, [facility] V28) 04/15/2021 Immunizations Immunization Administration Dates Next Due Pfizer SARS-CoV-2 COVID-19, mRNA, LNP-S, preservative free 04/20/2021,03/30/2021 Surgical History Surgery Date Site/Laterality Comments BREAST LUMPECTOMY Right Medical History Medical History Date Comments Hypertension Asthma Breast cancer ([facility] V24, [facility] V28) Skin cancer Social History Tobacco Use [...] 12/15/2025 9:00 AM EDT Office Visit [facility] Hematology Oncology [address] [place] [address] Jena Gonzales, DO [address] [place] [address] Health Maintenance Due Date Last Done Comments [...] 01/13/2025 11:40 AM EDT Colon cancer screening [facility] DEXA AXIAL SKELETON Routine 01/02/2024 7:39 AM EDT Other specified disorders of bone density and structure, other site from Last 3 Months or Most Recently Relevant to Health Maintenance Results * COLONOSCOPY Anesthesia - MAC; [facility] ENDOSCOPY (01/13/2025 11:40 AM EDT) Anatomical Region [...] pathology results. Narrative 01/13/2025 11:41 AM EDT [facility] GI Patient Name: Chanell Thomas Procedure Date: 01/13/2025 10:55 AM Date of : 1975 Age: 49 Gender: Female Note Status: Finalized Attending MD: Alexander De La Garza DO, [id number] Procedure Date No Time: 01/13/2025 Procedure: Colonoscopy [...] the physician, the nurse, the anesthesiologist, the metal engineering process worker and the radio electronics technician in the pre-procedure area in the [...] retroflexion views. Procedure Code(s): --- Professional --- 72200, Colonoscopy, flexible; with removal of tumor(s), polyp(s), or other lesion(s) by snare technique Diagnosis Code(s): --- Professional --- Z12.11, Encounter for screening for malignant neoplasm of colon K64.9, Unspecified hemorrhoids D12.8, Benign neoplasm of rectum CPT copyright 2020 [employer]. All rights reserved. The codes documented in this report are preliminary and upon armature winder repair helper review may be revised to meet current compliance requirements. ALEXANDER De La Garza DO 01/13/2025 11:40:44 AM This report has been signed electronically.Alexander De La Garza DO Number of Addenda: 0 Note Initiated On: 01/13/2025 10:55 AM Scope Withdrawal Time: 0 hours 6 minutes 15 seconds Scope In: 11:30:55 AM Scope Out: 11:39:12 AM Endoscopy Department at [facility] - [address] [place] [id number] Procedure Note Alexander De La Garza DO - 01/13/2025 [facility] GI Patient Name: Chanell Thomas Procedure Date: 01/13/2025 10:55 AM Date of : 1975 Age: 49 Gender: Female Note Status: Finalized Attending MD: Alexander De La Garza DO, [id number] Procedure Date No Time: 01/13/2025 Procedure: Colonoscopy [...] the physician, the nurse, the anesthesiologist, the metal engineering process worker and thetechnician in the pre-procedure area in [...] retroflexion views. Procedure Code(s): --- Professional --- 46408, Colonoscopy, flexible; with removal of tumor(s), polyp(s), or other lesion(s) by snare technique Diagnosis Code(s): --- Professional --- Z12.11, Encounter for screening for malignantneoplasm of colon K64.9, Unspecified hemorrhoids D12.8, Benign neoplasm of rectum CPT copyright 2020 [employer]. All rights reserved. The codes documented in this report are preliminary and upon armature winder repair helper reviewmay be revised to meet current compliance requirements. ALEXANDER De La Garza DO 01/13/2025 11:40:44 AM This report has been signed electronically.Alexander De La Garza DO Number of Addenda: 0 Note Initiated On: 01/13/2025 10:55 AM Scope Withdrawal Time: 0 hours 6 minutes 15 seconds Scope In: 11:30:55 AM Scope Out: 11:39:12 AM Endoscopy Department at [facility] - [address] [place] [phone] IMPRESSION: - Hemorrhoids found on perianal exam. [...] AM EDT [facility] Diagnostic Imaging Department [address] [place] [address] Patient: CHANELL THOMAS /Age/Sex: 1975 - 48 - F Unit#: [id number] Location/Status: [facility] Ordering Physician: JENA GONZALES Cassandra Dexa Axial [...] probability of hip fracture of 0.5%. Code 44116 Dictating Physician: CAMILLA WEBB MD Electronically Signed by: CAMILLA WEBB MD Dic Date/Time: 01/02/24737 Sign date/Time: 01/02/24738 Procedure Note Camilla Webb MD - 03/20/2024 [facility] Diagnostic Imaging Department [address] [place] [id number] Patient: CHANELL THOMAS /Age/Sex: 1975 - 48 - F Unit#: [id number] [facility] CLI Mnemonic/Ordering Site: [facility] Ordering Physician: JENA GONZALES Cassandra Dexa Axial [...] density of the femurs bilaterally is 0.948 gm/ss5ahrlt is 94% of that of young normals [...] probability of hip fracture of 0.5%. Code 93475 Dictating Physician: CAMILLA WEBB MD Electronically Signed by: CAMILLA WEBB MD Dic Date/Time: 01/02/24737 Sign date/Time: 01/02/24738 Jena Gonzales DO IMG BI PROCEDURES Fin al Result from Last 3 Months or Most Recently Relevant to Health Maintenance Insurance [facility] [address] [place] [address] Care Teams Participant Administrator Relationship Specialty Start Date End Date Jillian Rosales PA [address] [place] [address] PCP - General Physician It Coordinator 01/13/25
--- OUTSIDE RECORDS SUMMARY | 2025-04-30 08:05 | XMS_ITS ---
Author Organization [facility] Address [address] [place] [address] Phone Care Team Providers Care Training Assistant Name Role Phone Jililan Rosales Primary Care Provider [phone] Active Problems Problem Noted Date Diagnosed Date Malignant neoplasm of right female breast, unspecified estrogen receptor status, unspecified site of breast ([facility] V24, [facility] V28) 04/25/2024 Malignant neoplasm of female breast ([facility] V24, [facility] V28) 04/15/2021 Current Treatment and Therapy Plans GOSERELIN (ZOLADEX) 3.6 MG EVERY 4 WEEKS* Plan Start Date:04/25/2024 Plan Provider:Marlena Mayberry, Linked Problems Malignant neoplasm of female breast, unspecified estrogen receptor status, unspecified laterality, unspecified site of breast ([facility] V24, [facility] V28)Malignant neoplasm of right female breast, unspecified estrogen receptor status, unspecified site of breast ([facility] V24, [facility] V28) Treatment Medications goserelin (ZOLADEX) Past Treatment and Therapy Plans No past plan information found.
--- OUTSIDE RECORDS SUMMARY | 2025-04-30 08:05 | XMS_ITS | Continuity of Care Document ---
Author Organization [facility] [address] [place] [address] Phone [phone] Care Team Providers Care Lacing Cutter Name Role Phone Kenzi. PETTY Rosales Care Team Information Systems Administrator [phone] Problems Active Problems Provider Date Carcinoma of [...]
== END 2025-04-30 08:43 | disposition home or self-care (01) ==
LOC: HO.HMCFM 07:58
PROVIDERS: PCP Physician Assistant; Visit Provider Physician Assistant
DX: Z00.00 Encounter for general adult medical examination without abnormal findings (principal); I10 Essential (primary) hypertension; E05.90 Thyrotoxicosis, unspecified without thyrotoxic crisis or storm; E78.2 Mixed hyperlipidemia; R73.03 Prediabetes